=== PATIENT | male | born 1935 | race Caucasian/White ===

== ENCOUNTER → 2023-05-07 09:46 | Outpatient (REF) | payer OTHER, SELFPAY ==
[2023-05-07 10:38] LABS: % Basophils 0.2 % (0-2); % Eosinophils 0.2 % (0-6); % Immature Granulocytes 0.5 % (0-0.5); % Lymphocytes 17.1 % (20.5-51.1); % Monocytes 19.5 % (1.7-9.3); % Neutrophils 62.5 % (42.2-75.2); Absolute Lymphocytes 1.1 10^3/uL (1.2-3.4); Absolute Monocytes 1.2 10^3/uL (0.1-0.6); Absolute Neutrophils 3.9 10^3/uL (1.4-6.5); Hematocrit 38.8 % (39.0-52.0); Hemoglobin 13.8 g/dL (13.0-18.0); Mean Corp Hgb Conc. 35.6 g/dL (33.0-37.0); Mean Corpuscular Hgb 31.5 pg (27.0-31.0); Mean Corpuscular Volume 88.6 fL (80.0-94.0); Mean Platelet Volume 10.7 fL (7.4-10.4); Nucleated Red Blood Cells % 0 % (-); Platelet Count 222 10^3/uL (130-400); Red Blood Cell Count 4.38 10^6/uL (4.70-6.10); Red Cell Dist. Width 14.2 % (11.5-14.5); White Blood Cell Count 6.2 10^3/uL (4.8-10.8)
[2023-05-07 11:45] LABS: PSA, Total - Diagnostic 0.84 ng/ml (0.0-4.0)
[2023-05-07 12:24] LABS: ALT (SGPT) 25 U/L (0-50); AST (SGOT) 32 U/L (17-59); Albumin 4.4 g/dl (3.5-5.0); Alkaline Phosphatase 46 U/L (38-126); Blood Urea Nitrogen 21 mg/dl (9-20); Calcium 9.7 mg/dl (8.4-10.2); Carbon Dioxide 23 mmol/L (22-30); Chloride 102 mmol/L (98-107); Glucose 116 mg/dl (70-99); Potassium 4.5 mmol/L (3.5-5.1); Sodium 135 mmol/L (135-145); Total Bilirubin 0.8 mg/dl (0.2-1.3); Total Protein 7.2 g/dl (6.3-8.2); eGFR > 60.00
== END ==
LOC: RCS 09:46
PROVIDERS: ATTENDING PHYSICIAN Internal Medicine Medical Oncology
DX: C61 Malignant neoplasm of prostate (principal); C79.51 Secondary malignant neoplasm of bone
CPT/HCPCS: 36415; 80053; 84153; 84403; 85025; 93005

== ENCOUNTER → 2023-06-05 10:09 | Outpatient (REF) | payer OTHER, SELFPAY | LOC: RAD 10:09 | PROVIDERS: ATTENDING PHYSICIAN Internal Medicine Medical Oncology; FAMILY PHYSICIAN Family Medicine; REFERRING PHYSICIAN Urology | DX: C61 Malignant neoplasm of prostate (principal) | CPT/HCPCS: 71260; 74177; 78306; A9503; Q9967 ==

== ENCOUNTER → 2023-08-06 14:59 | Outpatient (REF) | payer OTHER, SELFPAY ==
[2023-08-06 15:43] LABS: % Basophils 0.3 % (0-2); % Immature Granulocytes 0.5 % (0-0.5); % Monocytes 26.9 % (1.7-9.3); % Neutrophils 60.3 % (42.2-75.2); Absolute Lymphocytes 0.7 10^3/uL (1.2-3.4); Absolute Monocytes 1.7 10^3/uL (0.1-0.6); Absolute Neutrophils 3.7 10^3/uL (1.4-6.5); Hematocrit 38.8 % (39.0-52.0); Hemoglobin 13.3 g/dL (13.0-18.0); Mean Corp Hgb Conc. 34.3 g/dL (33.0-37.0); Mean Corpuscular Hgb 29.6 pg (27.0-31.0); Mean Corpuscular Volume 86.2 fL (80.0-94.0); Mean Platelet Volume 10.7 fL (7.4-10.4); Nucleated Red Blood Cells % 0 % (-); Platelet Count 201 10^3/uL (130-400); Red Cell Dist. Width 13.4 % (11.5-14.5); White Blood Cell Count 6.2 10^3/uL (4.8-10.8)
[2023-08-06 16:01] LABS: ALT (SGPT) 22 U/L (0-50); AST (SGOT) 32 U/L (17-59); Absolute Neutrophils -Man Diff 3.9 10^3/uL (1.4-6.5); Albumin 4.5 g/dl (3.5-5.0); Alkaline Phosphatase 39 U/L (38-126); Band Neutrophils 0 % (0-3); Blood Urea Nitrogen 21 mg/dl (9-20); Calcium 9.4 mg/dl (8.4-10.2); Carbon Dioxide 25 mmol/L (22-30); Chloride 98 mmol/L (98-107); Glucose 106 mg/dl (70-99); Lymphocytes 15 % (20-51); Monocytes 22 % (2-9); Pathologist Reviewed No; Platelets Checked Yes; Potassium 4.3 mmol/L (3.5-5.1); Segmented Neutrophils 63 % (42-75); Sodium 134 mmol/L (135-145); Total Bilirubin 0.7 mg/dl (0.2-1.3); Total Protein 7.2 g/dl (6.3-8.2); eGFR > 60.00
[2023-08-06 16:02] LABS: Normal RBC Morphology Yes; Total Cells Counted 100
[2023-08-06 16:26] LABS: PSA, Total - Diagnostic 1.29 ng/ml (0.0-4.0)
== END ==
LOC: REG 14:59
PROVIDERS: ATTENDING PHYSICIAN Internal Medicine Medical Oncology; FAMILY PHYSICIAN Family Medicine
DX: C61 Malignant neoplasm of prostate (principal)
CPT/HCPCS: 36415; 80053; 84153; 85025

== ENCOUNTER → 2023-08-25 07:54 | Outpatient (REF) | payer OTHER, SELFPAY | LOC: RAD 07:54 | PROVIDERS: ATTENDING PHYSICIAN Internal Medicine Medical Oncology; FAMILY PHYSICIAN Family Medicine | DX: C61 Malignant neoplasm of prostate (principal) | CPT/HCPCS: 71260; 74177; 78306; A9503; Q9967 ==

== ENCOUNTER → 2023-10-27 10:35 | Outpatient (REF) | payer OTHER, SELFPAY ==
[2023-10-27 11:28] LABS: % Basophils 0.3 % (0-2); % Immature Granulocytes 0.8 % (0-0.5); % Lymphocytes 15.1 % (20.5-51.1); % Monocytes 12.6 % (1.7-9.3); % Neutrophils 71.2 % (42.2-75.2); Absolute Immature Granulocytes 0.1 10^3/uL (0-0.05); Absolute Lymphocytes 1.1 10^3/uL (1.2-3.4); Absolute Monocytes 0.9 10^3/uL (0.1-0.6); Absolute Neutrophils 5.2 10^3/uL (1.4-6.5); Hematocrit 37.5 % (39.0-52.0); Hemoglobin 13.1 g/dL (13.0-18.0); Mean Corp Hgb Conc. 34.9 g/dL (33.0-37.0); Mean Corpuscular Hgb 30.5 pg (27.0-31.0); Mean Corpuscular Volume 87.4 fL (80.0-94.0); Mean Platelet Volume 10.8 fL (7.4-10.4); Nucleated Red Blood Cells % 0 % (-); Platelet Count 200 10^3/uL (130-400); Red Blood Cell Count 4.29 10^6/uL (4.70-6.10); Red Cell Dist. Width 13.8 % (11.5-14.5); White Blood Cell Count 7.3 10^3/uL (4.8-10.8)
[2023-10-27 11:54] LABS: ALT (SGPT) 21 U/L (0-50); AST (SGOT) 31 U/L (17-59); Albumin 4.6 g/dl (3.5-5.0); Alkaline Phosphatase 50 U/L (38-126); Blood Urea Nitrogen 22 mg/dl (9-20); Calcium 9.5 mg/dl (8.4-10.2); Carbon Dioxide 25 mmol/L (22-30); Chloride 100 mmol/L (98-107); Glucose 133 mg/dl (70-99); Potassium 4.6 mmol/L (3.5-5.1); Sodium 137 mmol/L (135-145); Total Bilirubin 0.9 mg/dl (0.2-1.3); Total Protein 7.1 g/dl (6.3-8.2); eGFR > 60.00
[2023-10-27 12:21] LABS: PSA, Total - Diagnostic 1.78 ng/ml (0.0-4.0)
== END ==
LOC: REG 10:35
PROVIDERS: ATTENDING PHYSICIAN Internal Medicine Medical Oncology; FAMILY PHYSICIAN Family Medicine
DX: C79.51 Secondary malignant neoplasm of bone (principal); C61 Malignant neoplasm of prostate
CPT/HCPCS: 36415; 80053; 84153; 85025; 93005

== ENCOUNTER → 2023-12-31 10:40 | Outpatient (REF) | payer OTHER, SELFPAY ==
[2023-12-31 11:32] LABS: % Basophils 0.6 % (0-2); % Eosinophils 0.1 % (0-6); % Lymphocytes 24.5 % (20.5-51.1); % Monocytes 18.9 % (1.7-9.3); % Neutrophils 54.9 % (42.2-75.2); Absolute Immature Granulocytes 0.1 10^3/uL (0-0.05); Absolute Lymphocytes 1.8 10^3/uL (1.2-3.4); Absolute Monocytes 1.4 10^3/uL (0.1-0.6); Hemoglobin 13.7 g/dL (13.0-18.0); Mean Corp Hgb Conc. 35.1 g/dL (33.0-37.0); Mean Corpuscular Hgb 29.1 pg (27.0-31.0); Mean Corpuscular Volume 82.8 fL (80.0-94.0); Mean Platelet Volume 10.3 fL (7.4-10.4); Nucleated Red Blood Cells % 0 % (-); Platelet Count 271 10^3/uL (130-400); Red Blood Cell Count 4.71 10^6/uL (4.70-6.10); Red Cell Dist. Width 13.6 % (11.5-14.5); White Blood Cell Count 7.2 10^3/uL (4.8-10.8)
[2023-12-31 11:56] LABS: ALT (SGPT) 23 U/L (0-50); AST (SGOT) 33 U/L (17-59); Albumin 4.7 g/dl (3.5-5.0); Alkaline Phosphatase 52 U/L (38-126); Blood Urea Nitrogen 25 mg/dl (9-20); Calcium 9.8 mg/dl (8.4-10.2); Carbon Dioxide 27 mmol/L (22-30); Chloride 94 mmol/L (98-107); Glucose 128 mg/dl (70-99); Potassium 4.6 mmol/L (3.5-5.1); Sodium 136 mmol/L (135-145); Total Bilirubin 0.9 mg/dl (0.2-1.3); Total Protein 7.7 g/dl (6.3-8.2); eGFR > 60.00
[2023-12-31 12:23] LABS: PSA, Total - Diagnostic 2.61 ng/ml (0.0-4.0)
== END ==
LOC: REG 10:40
PROVIDERS: ATTENDING PHYSICIAN Family Medicine; REFERRING PHYSICIAN Internal Medicine Medical Oncology
DX: R73.03 Prediabetes (principal); C61 Malignant neoplasm of prostate
CPT/HCPCS: 36415; 80053; 83036; 84153; 85025; 93005

== ENCOUNTER 2024-01-03 12:14 | Emergency (ER) | payer OTHER, SELFPAY ==
[2024-01-03 12:16] VITALS: BP 114/88
[2024-01-03 12:48] VITALS: BMI 29.5
--- NOTE | 2024-01-03 12:52 | ED.GENMED ---
History of Present Illness
General
Chief Complaint: Skin Problem
Source: patient
Exam Limitations: none
Time Seen by Provider: 01/03/24 12:29
Nursing documentation reviewed up to this point in time: agreed with
History of Present Illness
History of Present Illness:
Patient is an 88-year-old male with history of metastatic bone cancer currently on Xtandi orally presents to the ER complaining of redness and red streaking to right wrist which he noticed this morning at 9:30 AM. He reports area feels sore. He
denies any injury or insect bite that he recalls.
He denies any fever chills. He is right hand dominant
Past History
Past History
ED Past Medical History: Cancer (Metastatic prostate CA), HTN and Valvular disease
ED Past Surgical History: Urological and Other
Social History
Tobacco: Non-smoker
Alcohol: None
Drug: None
Personal:
Living: with family
Employment: Retired
Family History
Family History: Diabetes and CAD
Review of Systems
Review of Systems
Allergies reviewed?: Yes
All Other Systems: ROS reviewed and negative except as documented in HPI and ROS
Constitutional: Reports no symptoms; Denies fever, fatigue or chills
Musculoskeletal: Reports other (redness to right wrist streaking up right forearm )
Skin: Reports other (see above )
Neurological: Reports no symptoms
Psychiatric: Reports no symptoms
Phy Exam
General Physical Exam
General Presentation: no apparent distress
General age: appears stated age
General Skin: warm and dry
General Habitus: normal
General Mental: alert
General Hydration: appears well hydrated
Neurological Exam
Neurological Exam: alert and oriented x3
Musculoskeletal Exam
Musculoskeletal Exam: other (Patient was strong pulses to the right upper extremity volar wrist with erythema mild swelling and slight lymphangitis extending up forearm however good flexion extension of wrist )
Skin Exam
Skin Exam: normal color and warm/dry
Psychiatric Exam
Psychiatric Exam: normal mood/affect
Course
Orders/Labs/Results
Orders:
Orders
01/03/24 13:03
Basic Metabolic Panel Urgent
01/03/24 13:52
Wrist, Right 3 Views [CR Wrist - Right Min 3 Views] Urgent
Comment:
Reason For Exam: swelling/redness
01/03/24 14:37
Complete Blood Count/With Diff Urgent
01/03/24 15:57
Cephalexin Monohydrate [Keflex] 500 mg PO NOW STA
01/03/24 15:58
Cephalexin Monohydrate [Keflex] 500 mg PO NOW STA
Abnormal Lab Results
01/03/24 01/03/24
13:03 14:37
RBC 4.19 L 10^6/uL
(4.70-6.10)
Hgb 12.3 L g/dL
(13.0-18.0)
Hct 34.4 L %
(39.0-52.0)
Abs Immat Gran (auto) 0.1 H 10^3/uL
(0-0.05)
Absolute Monos (auto) 1.6 H 10^3/uL
(0.1-0.6)
Immature Gran % 0.9 H %
(0-0.5)
Monocytes % 19.6 H %
(1.7-9.3)
Chloride 97 L mmol/L
(98-107)
BUN 28 H mg/dl
(9-20)
01/03/24 14:37
01/03/24 13:03
Vital Signs
Initial and Last Documented VS:
Initial Vital Signs
Temp Pulse Resp BP Pulse Ox
98.2 F 76 18 114/88 94
01/03/24 12:16 01/03/24 12:16 01/03/24 12:16 01/03/24 12:16 01/03/24 12:16
Last Documented Vital Signs
Temp Pulse Resp BP Pulse Ox
97.4 F 73 18 136/74 98
01/03/24 15:00 01/03/24 15:00 01/03/24 15:00 01/03/24 15:00 01/03/24 15:00
[employer] consulted with Physician
[employer] consulted with physician?: Yes
Name of Physician Consulted: DR Salinas
MDM/Problems Addressed
Differential Diagnosis Includes:
Not limited to cellulitis
MDM/Problems Addressed:
Patient with mild erythema slightly lymphangitis to wrist extending to forearm patient noticed just this morning. He denies any injury/insect bite. He feels well and denies feeling feverish achy chills ill. He is afebrile with a normal white
count BUN mildly elevated creatinine 1 potassium hemolyzed however with normal creatinine I did not order additional potassium. Case to ED physician will treat for cellulitis and patient was given 1 dose here in the ER will give prescription for
discharge. I did review however very prompt follow-up and close evaluation by family doctor in the next 1 to 2 days and if at all any symptoms worsen including worsening redness worsening red streaking fever chills he is to return immediately.
This was reviewed with patient and family who all verbalized understanding.
Chronic conditions affecting care:
on oral chemo
*Radiology
Radiology exam reviewed: radiology read reviewed
*Pulse Oximetry
Patient hypoxic: no
*Critical Care Note
Total Time (30-74mins, 75-104mins- exclusive of procedures): Not Applicable
ED Attending Note
-
Portions of this chart may have been created with voice recognition software.� Occasional wrong word or��sound alike� substitutions may have occurred due to the inherent limitations of voice recognition software.
Discharge Plan
Departure
Patient Disposition: Home (Routine Discharge)
Date of Disposition: 01/03/24
Time of Disposition: 16:02
Patient with high blood pressure during this ER visit?: Yes
Condition: Fair
Covid-19: Not Applicable
Discharge Problem:
Cellulitis
Instructions: Cellulitis (Skin Infection), Adult (DC)
Prescriptions:
New
cephalexin 500 mg capsule
500 mg PO Q6H Qty: 28 0RF
No Action
Centrum Silver 1 EACH tablet
1 ea PO QPM
prednisone 5 mg Tablet
5 mg PO DAILY
abiraterone 250 mg Tablet
1,000 mg PO DAILY
Rx Instructions:
must be taken on empty stomach, at least 1 hr before or 2 hrs after a meal/food
gabapentin 600 mg tablet
600 mg PO TID
polyethylene glycol 3350 [Miralax] 17 gram Powder In Packet
17 g PO DAILY
calcium carbonate [Calcium 600] 600 mg calcium (1,500 mg) Tablet
600 mg PO BID
buprenorphine 10 mcg/hour patch weekly
15 mcg transdermal SA
Patient Comments:
11/07/2022: last filled 10/17/22, 4 patches for 28 days from [facility]
lidocaine [Lidocaine Pain Relief] 4 % Adhesive Patch,Medicated
1 patch TOPICAL DAILY PRN (Reason: lower back pain)
Stool Softener 50 mg Capsule
100 mg PO DAILY
pantoprazole [Protonix] 40 mg Tablet,Delayed Release (Dr/Ec)
40 mg PO DAILY
furosemide 20 mg tablet
20 mg PO PRN PRN (Reason: swelling)
cephalexin 500 mg Capsule
500 mg PO BID Qty: 14 0RF
lisinopril 10 mg Tablet
10 mg PO DAILY Qty: 30 0RF
acetaminophen 325 mg Tablet
650 mg PO Q4HPRN PRN (Reason: Mild Pain / Temp > 101) Qty: 0 0RF
loperamide 2 mg Capsule
2 mg PO Q4HPRN PRN (Reason: diarrhea) Qty: 0 0RF
Referrals:
Jamila Ruiz MD [Family Provider] -
Activity Restrictions/Additional Instructions:
As discussed you were given 1 dose of antibiotics here in the ER .
A prescription for Keflex was sent to pharmacy take every 6 hours as directed. Follow-up with your family doctor tomorrow or the following day for close check. Return however to the ER for any worsening of symptoms or increased redness red
streaking pain fever or chills
Interventions
Interventions:
*Risk Screen - Suicide Last Done: 01/03/24 15:00
*General Assessment Last Done: 01/03/24 12:49
*Neglect/Abuse Screening Last Done: 01/03/24 12:49
ED- Fall Risk Assessment Last Done: 01/03/24 14:42
*ED COVID-19 Vaccine History Last Done: 01/03/24 12:49
*Nursing Disposition Last Done: 01/03/24 16:35
ED-Skin Assessment Last Done: 01/03/24 14:42
Discharge Date and Time
Discharge Date/Time: 01/03/24 16:45
Print Language: [place] CITIZEN
[2024-01-03 13:33] LABS: Blood Urea Nitrogen 28 mg/dl (9-20); Calcium 9.7 mg/dl (8.4-10.2); Carbon Dioxide 29 mmol/L (22-30); Chloride 97 mmol/L (98-107); Estimated Creatinine Clearance 61 ml/min; Glucose 99 mg/dl (70-99); Sodium 137 mmol/L (135-145); eGFR > 60.00
[2024-01-03 14:54] LABS: % Basophils 0.4 % (0-2); % Eosinophils 0.1 % (0-6); % Immature Granulocytes 0.9 % (0-0.5); % Lymphocytes 21.6 % (20.5-51.1); % Monocytes 19.6 % (1.7-9.3); % Neutrophils 57.4 % (42.2-75.2); Absolute Immature Granulocytes 0.1 10^3/uL (0-0.05); Absolute Lymphocytes 1.7 10^3/uL (1.2-3.4); Absolute Monocytes 1.6 10^3/uL (0.1-0.6); Absolute Neutrophils 4.6 10^3/uL (1.4-6.5); Hematocrit 34.4 % (39.0-52.0); Hemoglobin 12.3 g/dL (13.0-18.0); Mean Corp Hgb Conc. 35.8 g/dL (33.0-37.0); Mean Corpuscular Hgb 29.4 pg (27.0-31.0); Mean Corpuscular Volume 82.1 fL (80.0-94.0); Mean Platelet Volume 10.4 fL (7.4-10.4); Nucleated Red Blood Cells % 0 % (-); Platelet Count 219 10^3/uL (130-400); Red Blood Cell Count 4.19 10^6/uL (4.70-6.10); Red Cell Dist. Width 13.6 % (11.5-14.5)
[2024-01-03 15:00] VITALS: BP 136/74
[2024-01-03] MEDS: KEFLEX 500 MG PO ×2 (16:21)
== END 2024-01-03 16:45 | disposition home or self-care (01) ==
LOC: EMR 12:14
PROVIDERS: Nurse Practitioner; EMERGENCY PHYSICIAN Emergency Medicine; FAMILY PHYSICIAN Family Medicine
DX: L03.113 Cellulitis of right upper limb (principal); C61 Malignant neoplasm of prostate; C79.9 Secondary malignant neoplasm of unspecified site; I10 Essential (primary) hypertension; I38 Endocarditis, valve unspecified; G62.9 Polyneuropathy, unspecified; I70.90 Unspecified atherosclerosis; R01.1 Cardiac murmur, unspecified; N40.0 Benign prostatic hyperplasia without lower urinary tract symptoms; M19.90 Unspecified osteoarthritis, unspecified site; Z87.01 Personal history of pneumonia (recurrent); Z85.828 Personal history of other malignant neoplasm of skin; Z85.830 Personal history of malignant neoplasm of bone; Z87.442 Personal history of urinary calculi
CPT/HCPCS: 99283; 73110; 80048; 85025

== ENCOUNTER 2024-01-22 10:48 | Emergency (ER) | payer OTHER, SELFPAY ==
[2024-01-22 11:26] VITALS: BP 117/72
--- NOTE | 2024-01-22 12:58 | ED.GENMED ---
History of Present Illness
<DANYEL Singh - Last Filed: 01/25/24 11:36>
General
Chief Complaint: Male Genito-Urinary Symptoms
Source: patient
Exam Limitations: none
Time Seen by Provider: 01/22/24 12:57
Nursing documentation reviewed up to this point in time: agreed with
History of Present Illness
History of Present Illness:
Patient is an 88-year-old male with history of metastatic bone cancer with urostomy presents to the ER for evaluation. He reports last night until this morning he had decreased urine output and had some suprapubic discomfort and back pain. Since
he has been here he has been draining urine but still has some mild vague lower back discomfort. He denies any associated nausea vomiting fever chills. He has some chronic sediment in his urine this is not new.
In addition patient reports were not related to this he has had intermittent headaches and feels fullness in his ears when he wakes up. He does not have a great appetite.
Past History
<DANYEL Singh - Last Filed: 01/25/24 11:36>
Past History
ED Past Medical History: Cancer (Metastatic prostate CA), HTN and Valvular disease
ED Past Surgical History: Urological and Other
Social History
Tobacco: Non-smoker
Alcohol: None
Drug: None
Personal:
Living: with family
Employment: Retired
Family History
Family History: Diabetes and CAD
Review of Systems
<DANYEL Singh - Last Filed: 01/25/24 11:36>
Review of Systems
All Other Systems: ROS reviewed and negative except as documented in HPI and ROS
Constitutional: Reports no symptoms; Denies fever, fatigue or chills
Respiratory: Reports no symptoms
Cardiac: Reports no symptoms
ABD/GI: Reports abdominal pain (mild lower abdomen discomfort ); Denies nausea or vomiting
: Reports other (decreased urine from urostomy )
Musculoskeletal: Reports back pain (low back pain )
Skin: Reports no symptoms
Neurological: Reports no symptoms
Psychiatric: Reports no symptoms
Phy Exam
<DANYEL Singh - Last Filed: 01/25/24 11:36>
General Physical Exam
General Presentation: no apparent distress
General age: appears stated age
General Skin: warm and dry
General Habitus: normal
General Mental: alert
General Hydration: appears well hydrated
Gastrointestinal Exam
Gastrointestinal Exam: soft and other (urostomy draining urine + small amt of sediment )
Neurological Exam
Neurological Exam: alert and oriented x3
Musculoskeletal Exam
Musculoskeletal Exam: full ROM
Skin Exam
Skin Exam: normal color and warm/dry
Psychiatric Exam
Psychiatric Exam: normal mood/affect
Course
<DANYEL Singh - Last Filed: 01/25/24 11:36>
Orders/Labs/Results
Orders:
Orders
01/22/24 12:58
IV Insert/Care/Rem.- Treatment PRN
01/22/24 13:15
Complete Blood Count/With Diff Urgent
Comprehensive Metabolic Panel Urgent
01/22/24 13:55
CT Abd/pel Without Iv Or Oral Urgent
Comment:
Reason For Exam: back pain dec urine from urostomy
01/22/24 13:58
Urinalysis Reflex To Culture Urgent
Date Specimen was Collected: 01/22/24
Time Specimen was Collected: 13:01
Urine Microscopic Reflex Cult Urgent
Urine Culture Urgent
MERRILL Source: U
Specimen Description:
Date Specimen was Collected: 01/22/24
Time Specimen was Collected: 13:01
01/22/24 14:58
0.9% Sodium Chloride 1000 ml [Nss] 1,000 ml IV BOLUS
01/22/24 16:01
CT Head W/o Iv Contrast Urgent
Comment:
Reason For Exam: headaches
Abnormal Lab Results
01/22/24 01/22/24
13:15 13:58
RBC 4.23 L 10^6/uL
(4.70-6.10)
Hgb 12.9 L g/dL
(13.0-18.0)
Hct 36.0 L %
(39.0-52.0)
Abs Immat Gran (auto) 0.1 H 10^3/uL
(0-0.05)
Absolute Monos (auto) 1.1 H 10^3/uL
(0.1-0.6)
Immature Gran % 0.6 H %
(0-0.5)
Lymphocytes % 14.8 L %
(20.5-51.1)
Monocytes % 14.0 H %
(1.7-9.3)
Sodium 132 L mmol/L
(135-145)
Chloride 92 L mmol/L
(98-107)
BUN 42 H mg/dl
(9-20)
Creatinine 1.8 H mg/dL
(0.7-1.3)
Glucose 122 H mg/dl
(70-99)
Urine Nitrite (Reflex) Positive A
(Negative)
Urine Bacteria (Reflex) Many A
(Negative)
01/22/24 13:15
01/22/24 13:15
Vital Signs
Initial and Last Documented VS:
Initial Vital Signs
Temp Pulse Resp BP Pulse Ox
97.7 F 91 18 117/72 98
01/22/24 11:26 01/22/24 11:26 01/22/24 11:26 01/22/24 11:26 01/22/24 11:26
Last Documented Vital Signs
Temp Pulse Resp BP Pulse Ox
97.7 F 71 15 111/73 97
01/22/24 11:26 01/22/24 18:15 01/22/24 18:15 01/22/24 18:00 01/22/24 18:15
Health Care Sanitary Technician consulted with Physician
Health Care Sanitary Technician consulted with physician?: Yes
Name of Physician Consulted: DR Thomas
<Cm Carlin PA-C - Last Filed: 01/22/24 19:35>
Orders/Labs/Results
Orders:
Orders
01/22/24 12:58
IV Insert/Care/Rem.- Treatment PRN
01/22/24 13:15
Complete Blood Count/With Diff Urgent
Comprehensive Metabolic Panel Urgent
01/22/24 13:55
CT Abd/pel Without Iv Or Oral Urgent
Comment:
Reason For Exam: back pain dec urine from urostomy
01/22/24 13:58
Urinalysis Reflex To Culture Urgent
Date Specimen was Collected: 01/22/24
Time Specimen was Collected: 13:01
Urine Microscopic Reflex Cult Urgent
Urine Culture Urgent
[facility]RI[facility] Source: U
Specimen Description:
Date Specimen was Collected: 01/22/24
Time Specimen was Collected: 13:01
01/22/24 14:58
0.9% Sodium Chloride 1000 ml [Nss] 1,000 ml IV BOLUS
01/22/24 16:01
CT Head W/o Iv Contrast Urgent
Comment:
Reason For Exam: headaches
Abnormal Lab Results
01/22/24 01/22/24
13:15 13:58
RBC 4.23 L 10^6/uL
(4.70-6.10)
Hgb 12.9 L g/dL
(13.0-18.0)
Hct 36.0 L %
(39.0-52.0)
Abs Immat Gran (auto) 0.1 H 10^3/uL
(0-0.05)
Absolute Monos (auto) 1.1 H 10^3/uL
(0.1-0.6)
Immature Gran % 0.6 H %
(0-0.5)
Lymphocytes % 14.8 L %
(20.5-51.1)
Monocytes % 14.0 H %
(1.7-9.3)
Sodium 132 L mmol/L
(135-145)
Chloride 92 L mmol/L
(98-107)
BUN 42 H mg/dl
(9-20)
Creatinine 1.8 H mg/dL
(0.7-1.3)
Glucose 122 H mg/dl
(70-99)
Urine Nitrite (Reflex) Positive A
(Negative)
Urine Bacteria (Reflex) Many A
(Negative)
01/22/24 13:15
01/22/24 13:15
Vital Signs
Initial and Last Documented VS:
Initial Vital Signs
Temp Pulse Resp BP Pulse Ox
97.7 F 91 18 117/72 98
01/22/24 11:26 01/22/24 11:26 01/22/24 11:26 01/22/24 11:26 01/22/24 11:26
Last Documented Vital Signs
Temp Pulse Resp BP Pulse Ox
97.7 F 71 15 111/73 97
01/22/24 11:26 01/22/24 18:15 01/22/24 18:15 01/22/24 18:00 01/22/24 18:15
<DANYEL Singh - Last Filed: 01/25/24 11:36>
MDM/Problems Addressed
MDM/Problems Addressed:
88 yr old male /w urostomy presents decreased outpt from urine bag since last night with mild lower back pain and lower abdominal pain. Patient however has since been urinating. He denies any fever or chills. Patient is afebrile with a normal
white count stable hemoglobin however patient's BUN and creatinine are elevated compared to last visit 42/1.8 compared to 28/0.8. will hydrate and order ct scan. d/c w/ DR Thomas.
In addition patient did complain of some vague complaints of intermittent headaches and ear pain over the past several days reports slight decreased appetite. will check CT however patient is in no acute distress no complaints of headache now
normal neurologic exam non toxic.
CAT scan shows moderate chronic bilateral renal disease new small amount of pelvic ascites no CT evidence for hydroureteronephrosis or obstructing renal calculus previous prostatectomy. No other acute findings.
Pt was hydrated here and in no distress. will plan to d/c once ct head is neg
Chronic conditions affecting care:
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
<Cm Carlin PA-C - Last Filed: 01/22/24 19:35>
*Critical Care Note
Total Time (30-74mins, 75-104mins- exclusive of procedures): Not Applicable
ED Attending Note
<DANYEL Singh - Last Filed: 01/25/24 11:36>
-
Portions of this chart may have been created with voice recognition software.� Occasional wrong word or��sound alike� substitutions may have occurred due to the inherent limitations of voice recognition software.
Discharge Plan
Departure
Patient Disposition: Home (Routine Discharge)
Date of Disposition: 01/22/24
Time of Disposition: 17:57
Patient with high blood pressure during this ER visit?: Yes
Condition: Fair
Covid-19: Not Applicable
Discharge Problem:
Acute dehydration
Instructions: Dehydration, Adult ED, BLOOD PRESSURE
Prescriptions:
No Action
Centrum Silver 1 EACH tablet
1 ea PO QPM
prednisone 5 mg Tablet
5 mg PO DAILY
abiraterone 250 mg Tablet
1,000 mg PO DAILY
Rx Instructions:
must be taken on empty stomach, at least 1 hr before or 2 hrs after a meal/food
gabapentin 600 mg tablet
600 mg PO TID
polyethylene glycol 3350 [Miralax] 17 gram Powder In Packet
17 g PO DAILY
calcium carbonate [Calcium 600] 600 mg calcium (1,500 mg) Tablet
600 mg PO BID
buprenorphine 10 mcg/hour patch weekly
15 mcg transdermal SA
Patient Comments:
11/07/2022: last filled 10/17/22, 4 patches for 28 days from [facility]
lidocaine [Lidocaine Pain Relief] 4 % Adhesive Patch,Medicated
1 patch TOPICAL DAILY PRN (Reason: lower back pain)
Stool Softener 50 mg Capsule
100 mg PO DAILY
pantoprazole [Protonix] 40 mg Tablet,Delayed Release (Dr/Ec)
40 mg PO DAILY
furosemide 20 mg tablet
20 mg PO PRN PRN (Reason: swelling)
cephalexin 500 mg Capsule
500 mg PO BID Qty: 14 0RF
lisinopril 10 mg Tablet
10 mg PO DAILY Qty: 30 0RF
acetaminophen 325 mg Tablet
650 mg PO Q4HPRN PRN (Reason: Mild Pain / Temp > 101) Qty: 0 0RF
loperamide 2 mg Capsule
2 mg PO Q4HPRN PRN (Reason: diarrhea) Qty: 0 0RF
cephalexin 500 mg capsule
500 mg PO Q6H Qty: 28 0RF
Referrals:
Jamila Ruiz MD [Family Provider] -
Activity Restrictions/Additional Instructions:
As discussed your renal function was elevated here in the ER and you were hydrated. Follow-up with family doctor and oncologist in the next several days for reevaluation of labs continue to stay well-hydrated.
Return if any worsening of symptoms, if decreased urine output in urostomy or pain or any further concerns.
Interventions
Interventions:
*Risk Screen - Suicide Last Done: 01/22/24 11:26
*General Assessment Last Done: 01/22/24 11:26
*Neglect/Abuse Screening Last Done: 01/22/24 11:26
ED- Fall Risk Assessment Last Done: 01/22/24 12:57
*Nursing Disposition Last Done: 01/22/24 18:48
ED-Male Genitourinary Assessment Last Done: 01/22/24 12:57
Discharge Date and Time
Discharge Date/Time: 01/22/24 18:49
Print Language: [place]
[2024-01-22 13:28] LABS: % Basophils 0.2 % (0-2); % Eosinophils 0.1 % (0-6); % Immature Granulocytes 0.6 % (0-0.5); % Lymphocytes 14.8 % (20.5-51.1); % Neutrophils 70.3 % (42.2-75.2); Absolute Immature Granulocytes 0.1 10^3/uL (0-0.05); Absolute Lymphocytes 1.2 10^3/uL (1.2-3.4); Absolute Monocytes 1.1 10^3/uL (0.1-0.6); Absolute Neutrophils 5.7 10^3/uL (1.4-6.5); Hemoglobin 12.9 g/dL (13.0-18.0); Mean Corp Hgb Conc. 35.8 g/dL (33.0-37.0); Mean Corpuscular Hgb 30.5 pg (27.0-31.0); Mean Corpuscular Volume 85.1 fL (80.0-94.0); Mean Platelet Volume 9.7 fL (7.4-10.4); Nucleated Red Blood Cells % 0 % (-); Platelet Count 250 10^3/uL (130-400); Red Blood Cell Count 4.23 10^6/uL (4.70-6.10); Red Cell Dist. Width 13.5 % (11.5-14.5); White Blood Cell Count 8.2 10^3/uL (4.8-10.8)
[2024-01-22 13:46] LABS: ALT (SGPT) 20 U/L (0-50); AST (SGOT) 29 U/L (17-59); Albumin 4.2 g/dl (3.5-5.0); Alkaline Phosphatase 47 U/L (38-126); Blood Urea Nitrogen 42 mg/dl (9-20); Calcium 9.5 mg/dl (8.4-10.2); Carbon Dioxide 29 mmol/L (22-30); Chloride 92 mmol/L (98-107); Glucose 122 mg/dl (70-99); Potassium 4.5 mmol/L (3.5-5.1); Sodium 132 mmol/L (135-145); Total Bilirubin 0.7 mg/dl (0.2-1.3); Total Protein 6.9 g/dl (6.3-8.2); eGFR 35.98
[2024-01-22 14:11] LABS: Urine Albumin Negative (Neg - Trace); Urine Bilirubin Negative (Negative); Urine Character Clear (Clear); Urine Color Yellow; Urine Glucose Negative (Negative); Urine Ketone Negative (Negative); Urine Leukocyte Negative (Negative); Urine Nitrite Positive (Negative); Urine Occult Blood Negative (Negative); Urine Urobilinogen Negative (Neg - 1+)
[2024-01-22 15:05] VITALS: BP 111/74
[2024-01-22 15:11] LABS: Urine Mucus Many
[2024-01-22 15:12] LABS: Urine Amorphous Seen; Urine Squamous Cell 0-2 /LPF (Few)
[2024-01-22 15:13] LABS: Urine Bacteria Many (Negative); Urine Red Blood Cell 0-2 /HPF (0-2)
[2024-01-22] MEDS: NSS 1000 IV (15:44)
[2024-01-22 15:46] VITALS: BMI 28.7
[2024-01-22 16:00] VITALS: BP 131/65
[2024-01-22 17:21] VITALS: BP 137/69
[2024-01-22 18:00] VITALS: BP 111/73
== END 2024-01-22 18:49 | disposition home or self-care (01) ==
LOC: EMR 10:48
PROVIDERS: Nurse Practitioner; EMERGENCY PHYSICIAN Emergency Medicine; FAMILY PHYSICIAN Family Medicine
DX: E86.0 Dehydration (principal); I10 Essential (primary) hypertension; I38 Endocarditis, valve unspecified; C61 Malignant neoplasm of prostate; C79.51 Secondary malignant neoplasm of bone; Z82.49 Family history of ischemic heart disease and other diseases of the circulatory system; Z83.3 Family history of diabetes mellitus; Z85.46 Personal history of malignant neoplasm of prostate; Z90.79 Acquired absence of other genital organ(s)
CPT/HCPCS: 99284; 96360; 70450; 74176; 80053; 81003; 81015; 85025; 87086

== ENCOUNTER → 2024-02-19 11:35 | Outpatient (REF) | payer OTHER, SELFPAY ==
[2024-02-19 12:55] LABS: % Basophils 0.1 % (0-2); % Immature Granulocytes 0.7 % (0-0.5); % Lymphocytes 20.6 % (20.5-51.1); % Monocytes 18.8 % (1.7-9.3); % Neutrophils 59.8 % (42.2-75.2); Absolute Immature Granulocytes 0.1 10^3/uL (0-0.05); Absolute Lymphocytes 1.4 10^3/uL (1.2-3.4); Absolute Monocytes 1.3 10^3/uL (0.1-0.6); Hematocrit 37.4 % (39.0-52.0); Mean Corp Hgb Conc. 34.8 g/dL (33.0-37.0); Mean Corpuscular Hgb 30.2 pg (27.0-31.0); Mean Corpuscular Volume 86.8 fL (80.0-94.0); Mean Platelet Volume 10.2 fL (7.4-10.4); Nucleated Red Blood Cells % 0 % (-); Platelet Count 238 10^3/uL (130-400); Red Blood Cell Count 4.31 10^6/uL (4.70-6.10); Red Cell Dist. Width 13.8 % (11.5-14.5); White Blood Cell Count 6.7 10^3/uL (4.8-10.8)
[2024-02-19 13:41] LABS: ALT (SGPT) 19 U/L (0-50); AST (SGOT) 28 U/L (17-59); Albumin 4.7 g/dl (3.5-5.0); Alkaline Phosphatase 39 U/L (38-126); Blood Urea Nitrogen 23 mg/dl (9-20); Carbon Dioxide 26 mmol/L (22-30); Chloride 95 mmol/L (98-107); Glucose 103 mg/dl (70-99); Potassium 4.4 mmol/L (3.5-5.1); Sodium 135 mmol/L (135-145); Total Bilirubin 0.5 mg/dl (0.2-1.3); Total Protein 7.6 g/dl (6.3-8.2); eGFR > 60.00
[2024-02-19 13:50] LABS: PSA, Total - Diagnostic 3.13 ng/ml (0.0-4.0)
== END ==
LOC: REG 11:35
PROVIDERS: ATTENDING PHYSICIAN Family Medicine; FAMILY PHYSICIAN Internal Medicine Medical Oncology
DX: C61 Malignant neoplasm of prostate (principal); E86.0 Dehydration
CPT/HCPCS: 36415; 80053; 84153; 85025

== ENCOUNTER → 2024-04-16 11:08 | Outpatient (REF) | payer OTHER, SELFPAY ==
[2024-04-16 11:53] LABS: % Basophils 0.1 % (0-2); % Eosinophils 0.1 % (0-6); % Immature Granulocytes 0.6 % (0-0.5); % Monocytes 16.3 % (1.7-9.3); % Neutrophils 61.9 % (42.2-75.2); Absolute Lymphocytes 1.4 10^3/uL (1.2-3.4); Absolute Monocytes 1.1 10^3/uL (0.1-0.6); Absolute Neutrophils 4.2 10^3/uL (1.4-6.5); Hematocrit 43.8 % (39.0-52.0); Hemoglobin 14.9 g/dL (13.0-18.0); Mean Corpuscular Hgb 29.8 pg (27.0-31.0); Mean Corpuscular Volume 87.6 fL (80.0-94.0); Mean Platelet Volume 10.1 fL (7.4-10.4); Nucleated Red Blood Cells % 0 % (-); Platelet Count 283 10^3/uL (130-400); Red Cell Dist. Width 13.1 % (11.5-14.5); White Blood Cell Count 6.8 10^3/uL (4.8-10.8)
[2024-04-16 12:24] LABS: ALT (SGPT) 22 U/L (0-50); AST (SGOT) 35 U/L (17-59); Albumin 5.1 g/dl (3.5-5.0); Alkaline Phosphatase 46 U/L (38-126); Blood Urea Nitrogen 24 mg/dl (9-20); Calcium 10.5 mg/dl (8.4-10.2); Carbon Dioxide 30 mmol/L (22-30); Chloride 92 mmol/L (98-107); Glucose 135 mg/dl (70-99); Potassium 4.6 mmol/L (3.5-5.1); Sodium 135 mmol/L (135-145); Total Bilirubin 0.8 mg/dl (0.2-1.3); Total Protein 8.4 g/dl (6.3-8.2); eGFR > 60.00
[2024-04-16 12:50] LABS: PSA, Total - Diagnostic 5.37 ng/ml (0.0-4.0)
== END ==
LOC: REG 11:08
PROVIDERS: ATTENDING PHYSICIAN Internal Medicine Medical Oncology; FAMILY PHYSICIAN Family Medicine
DX: C61 Malignant neoplasm of prostate (principal)
CPT/HCPCS: 36415; 80053; 84153; 85025

== ENCOUNTER 2024-04-29 19:42 | Inpatient (IN) | payer OTHER, SELFPAY ==
[2024-04-29] VITALS (20 sets, daily range): BP systolic 103–158; BP diastolic 56–94; BMI 29.9; BMI 28.8
[2024-04-29 13:15] LABS: % Basophils 0.4 % (0-2); % Eosinophils 0.2 % (0-6); % Immature Granulocytes 0.6 % (0-0.5); % Lymphocytes 9.4 % (20.5-51.1); % Monocytes 16.4 % (1.7-9.3); Absolute Lymphocytes 0.5 10^3/uL (1.2-3.4); Absolute Monocytes 0.8 10^3/uL (0.1-0.6); Absolute Neutrophils 3.6 10^3/uL (1.4-6.5); Hematocrit 36.5 % (39.0-52.0); Hemoglobin 12.8 g/dL (13.0-18.0); Mean Corp Hgb Conc. 35.1 g/dL (33.0-37.0); Mean Corpuscular Volume 85.7 fL (80.0-94.0); Mean Platelet Volume 9.9 fL (7.4-10.4); Nucleated Red Blood Cells % 0 % (-); Platelet Count 201 10^3/uL (130-400); Red Blood Cell Count 4.26 10^6/uL (4.70-6.10); Red Cell Dist. Width 12.9 % (11.5-14.5)
[2024-04-29 13:32] LABS: ALT (SGPT) 17 U/L (0-50); AST (SGOT) 27 U/L (17-59); Albumin 4.3 g/dl (3.5-5.0); Alkaline Phosphatase 50 U/L (38-126); Blood Urea Nitrogen 24 mg/dl (9-20); Calcium 8.4 mg/dl (8.4-10.2); Carbon Dioxide 28 mmol/L (22-30); Chloride 93 mmol/L (98-107); Glucose 127 mg/dl (70-99); Potassium 3.9 mmol/L (3.5-5.1); Sodium 131 mmol/L (135-145); Total Bilirubin 0.6 mg/dl (0.2-1.3); Total Protein 7.1 g/dl (6.3-8.2); eGFR > 60.00
[2024-04-29] MEDS: ZOFRAN 4 MG IV ×2 (15:00→22:42)
[2024-04-29] MEDS: NSS 1000 IV ×2 (15:01→19:56)
[2024-04-29] MEDS: DILAUDID 1 MG IV ×3 (15:01→17:36)
[2024-04-29 15:23] LABS: Urine Albumin 3+ (Neg - Trace); Urine Bilirubin Negative (Negative); Urine Character Clear (Clear); Urine Color Yellow; Urine Glucose Negative (Negative); Urine Ketone Negative (Negative); Urine Leukocyte 2+ (Negative); Urine Nitrite Negative (Negative); Urine Occult Blood 3+ (Negative); Urine Urobilinogen Negative (Neg - 1+)
[2024-04-29 15:28] LABS: Urine Squamous Cell 0-2 /LPF (Few)
[2024-04-29 15:29] LABS: Urine Bacteria Moderate (Negative); Urine Red Blood Cell 70-80 /HPF (0-2)
[2024-04-29 15:30] LABS: Urine White Cell 80-90 /HPF (0-5)
[2024-04-29 15:43] LABS: Lactic Acid 1.8 mmol/L (0.7-2.0)
--- NOTE | 2024-04-29 16:30 | ED.GENMED ---
History of Present Illness
General
Chief Complaint: Abdominal Pain
Time Seen by Provider: 04/29/24 14:42
History of Present Illness
History of Present Illness:
88-year-old male with history of metastatic bone cancer currently undergoing radiation, prostate cancer with urostomy, chronic lower back issues, diabetes, hypertension presenting to the emergency department for abdominal pain. Patient reports
symptoms started this morning around 11 AM. Pain is diffuse. Has been constipated for the past several days, however does note that he is also been having runny diarrhea. Denies any fever. Denies chest pain or difficulty breathing. Does note
element of chronic pain, is on hydromorphone, however pain is worse today. Feels decreased output out of his urostomy. Last dose of radiation was last week. Pain radiates to his back. Denies additional medical complaints
Past History
Past History
ED Past Medical History: Cancer (Metastatic prostate CA), HTN and Valvular disease
ED Past Surgical History: Urological and Other
Social History
Tobacco: Non-smoker
Alcohol: None
Drug: None
Personal:
Living: with family
Employment: Retired
Family History
Family History: Diabetes and CAD
Phy Exam
Physical Exam
Physical Exam:
General: Well-appearing, no clinical signs of dehydration, mild distress secondary to pain
HEENT: protecting airway
Neck: appears supple
CV: Normal heart rate, regular rhythm
Resp: No accessory muscle use, no increased work of breathing, lungs clear to auscultation bilaterally
Abd: Soft and non-distended, generalized nonfocal tenderness to palpation with voluntary guarding, no rebound. Draining urostomy, yellow urine
Extremities: No deformities, no swelling
Neuro: alert, no focal neurologic deficit
: deferred
Rectal: deferred
Psych: Normal affect
Skin: Intact
Course
Orders/Labs/Results
Orders:
Orders
04/29/24 Breakfast
Clear Liquid
At Your Request: Full Participation
04/29/24 13:01
Complete Blood Count/With Diff Urgent
Comprehensive Metabolic Panel Urgent
04/29/24 14:52
0.9% Sodium Chloride 1000 ml [Nss] 1,000 ml IV BOLUS
HYDROmorphone [Dilaudid] 1 mg IV NOW STA
Ondansetron Injectable [Zofran] 4 mg IV NOW STA
04/29/24 14:53
CT Abd/pel Without Iv Or Oral Urgent
Comment:
Reason For Exam: generalized pain, Nausea, constipation, urostomy
04/29/24 15:10
Lactic Acid Q4H
Comment: CANCEL 2nd LACTIC ACID IF 1st LACTIC ACID IS LESS THAN 2
Urinalysis Reflex To Culture Urgent
Date Specimen was Collected: 04/29/24
Time Specimen was Collected: 15:09
Urine Microscopic Reflex Cult Urgent
Urine Culture Urgent
MERRILL Source: U
Specimen Description:
Date Specimen was Collected: 04/29/24
Time Specimen was Collected: 15:09
04/29/24 15:57
HYDROmorphone [Dilaudid] 1 mg IV NOW STA
04/29/24 17:17
Cefepime HCl [Maxipime] 2,000 mg IV NOW STA
HYDROmorphone [Dilaudid] 1 mg IV NOW STA
04/29/24 18:56
Admit/Transfer Patient As Directed
Co-Sign Provider:
Level of Care: Inpatient admission
Assign to:: Medical/Surgical
Physician / Group: neelima
Diagnosis: UTi
Reason for Hospitalization: UTi
Expected length of stay greater than two midnights?: Yes
ELOS- Estimated Length of Stay in days: 3
I certify the patient meets the requirements for IP care: Yes
PRN Pain Medication Management As Directed
May give lesser potent ordered pain med per pt: Yes
preference::
Protocol:: Medication orders for pain may be administered in a
manner that supports deferring to patient preference
when the pt is:
- Requesting an ordered lesser potent pain medication.
Least to most potent pain medications are defined
as: acetaminophen < NSAID < tramadol < opioids
(morphine, oxycodone, hydromorphone).
- Requesting a lesser dose of the same medication IF
ORDERED.
- Requesting a less intrusive route of administration
if both routes are prescribed by the provider (PO <
IV).
04/29/24 18:57
Code Status As Directed
Resuscitation Status: Full Code
04/29/24 19:00
Lactic Acid Q4H
Comment: CANCEL 2nd LACTIC ACID IF 1st LACTIC ACID IS LESS THAN 2
04/29/24 19:20
UROLOGY CONSULT Routine
Consulting Provider: Ray Awad
Was physician already notified: Yes
04/29/24 19:27
EKG [Electrocardiogram (*1)] Stat
Reason for Study: QTc Monitoring
04/29/24 19:30
0.9% Sodium Chloride 1000 ml [Nss] 1,000 ml IV 80 mls/hr
04/29/24 21:00
Ondansetron Injectable [Zofran] 4 mg IV Q6HPRN PRN
Abnormal Lab Results
04/29/24 04/29/24
13:01 15:10
RBC 4.26 L 10^6/uL
(4.70-6.10)
Hgb 12.8 L g/dL
(13.0-18.0)
Hct 36.5 L %
(39.0-52.0)
Absolute Lymphs (auto) 0.5 L 10^3/uL
(1.2-3.4)
Absolute Monos (auto) 0.8 H 10^3/uL
(0.1-0.6)
Immature Gran % 0.6 H %
(0-0.5)
Lymphocytes % 9.4 L %
(20.5-51.1)
Monocytes % 16.4 H %
(1.7-9.3)
Sodium 131 L mmol/L
(135-145)
Chloride 93 L mmol/L
(98-107)
BUN 24 H mg/dl
(9-20)
Glucose 127 H mg/dl
(70-99)
Ur Occult Blood Reflex 3+ A
(Negative)
Leukocyte Esterase Rfl 2+ A
(Negative)
Urine RBC 70-80 A /HPF
(0-2)
Urine WBC (Reflex) 80-90 A /HPF
(0-5)
Urine Bacteria (Reflex) Moderate A
(Negative)
Urine Albumin (Reflex) 3+ A
(Neg - Trace)
04/29/24 13:01
04/29/24 13:01
Vital Signs
Initial and Last Documented VS:
Initial Vital Signs
Temp Pulse Resp BP Pulse Ox
97.6 F 73 18 137/77 98
04/29/24 12:46 04/29/24 12:46 04/29/24 12:46 04/29/24 12:46 04/29/24 12:46
Last Documented Vital Signs
Temp Pulse Resp BP Pulse Ox
97.6 F 84 15 128/63 96
04/29/24 12:46 04/29/24 19:00 04/29/24 19:00 04/29/24 19:00 04/29/24 19:00
MDM/Problems Addressed
MDM/Problems Addressed:
88-year-old male with history of prostate cancer and metastatic bone cancer with urostomy presenting for severe abdominal pain at 11 AM. Vital signs on arrival are normal.
On exam, patient is in no acute distress, however does appear uncomfortable secondary to pain. Generalized tenderness to the abdomen with voluntary guarding, no rebound. Concern for acute intra-abdominal process given patient's comorbidities.
Bowel obstruction is a consideration. Bladder scan obtained, no retention, urostomy appears to be appropriately draining. Plan for laboratory analysis, pain control with Dilaudid, CT abdominal imaging. Patient has allergy to IV contrast and
cannot currently tolerate p.o. contrast given nausea and pain. Will obtain dry scan.
18:00 -urine does show some signs of infection, however suspected colonization, taken for the bag. CT shows concern of bilateral hydronephrosis stranding and inflammation to the kidney and neobladder concerning for UTI. Also mention of new free
fluid in the right pelvis, reactive versus bladder leak without abscess. Will start on IV antibiotics. Urology made aware. Plan for admission
18:10 - per urology, no emergent intervention at this time.
*Critical Care Note
Total Time (30-74mins, 75-104mins- exclusive of procedures): Not Applicable
ED Attending Note
-
Portions of this chart may have been created with voice recognition software.� Occasional wrong word or��sound alike� substitutions may have occurred due to the inherent limitations of voice recognition software.
Discharge Plan
Departure
Patient Disposition: Admit
Date of Disposition: 04/29/24
Time of Disposition: 18:04
Presentation/result/management discussed w/ accepting MD/DO: Hospitalist
Patient with high blood pressure during this ER visit?: No
Condition: Fair
Discharge Problem:
Complicated urinary tract infection, Bilateral hydronephrosis
Interventions
Interventions:
*Risk Screen - Suicide Last Done: 04/29/24 12:46
*General Assessment Last Done: 04/29/24 12:46
*Neglect/Abuse Screening Last Done: 04/29/24 12:46
*ED COVID-19 Vaccine History Last Done: 04/29/24 14:24
PH-Bmuhks-Riexwqdqfp Assessment Last Done: 04/29/24 15:00
[2024-04-29] MEDS: MAXIPIME 2000 MG IV (17:36)
--- NOTE | 2024-04-29 18:35 | HPS.HSE ---
Family Physician
-
Family Physician: Jamila Ruiz MD
Chief Complaint
-
Abdominal pain
History of Present Illness
88-year-old male with history of metastatic bone cancer currently undergoing radiation, prostate cancer with urostomy, chronic lower back issues, diabetes, hypertension presenting to the emergency department for abdominal pain since this morning.
Has been constipated for the past several days, however does note that he is also been having runny diarrhea for past 3 nights. denies any fever, chills, congestion, cough. denies chest pain or difficulty breathing. Feels decreased output out of
his urostomy. As for past family, his urine was dark. His abdomen was distended. last dose of radiation was on Thursday. Pain radiates to his lower across the back.
Positive urinalysis. CT of abdomen pelvis with concern of UTI, new mild bilateral hydro, mild free fluid in the right pelvis. Patient received a dose of cefepime in ER. Patient also received Dilaudid and Zofran in ER. Patient received fluids in
ER. Admitting for further management
Medical History
Past Medical History
Past Medical History: Reports Other
Additional Past Medical History:
Hypertension
Hyperlipidemia
Osteoarthritis
GERD
Heart murmur
Prostate cancer
Chronic pain due to neoplasm
Low back pain
Pneumonia
Skin cancer
Lyme disease
Past Surgical History: Reports Other
Additional Past Surgical History:
Partial cystectomy with a loop diversion
Lump on the left testicle removed
Left ear excision of skin cancer
Hernia repair
Aba
Bilateral cataract excision
Social History
Tobacco: Non-smoker
Alcohol: None
Drug: None
Personal:
Living: With Family
Family History
Family History: Not pertinent
Allergies / Home Medications
Allergies reflects when Allergies were last updated in [facility].
Home Medications with original date entered in [facility]
Allergy/Medication List:
Allergies
Allergy/AdvReac Type Severity Reaction Status Date / Time
gadobutrol [From Gadavist] Allergy Hives Verified 04/29/24 12:44
surgical glue Allergy Itching Uncoded 04/29/24 12:44
Home Medications
ckfxpleo-tyq-rhdej acid 0.4 mg-lycopene 300 mcg-lutein 250 mcg tablet (Centrum Silver) 1 ea PO QPM Supplement 07/16/18
buprenorphine 10 mcg/hour weekly transdermal patch 15 mcg transdermal TH Pain 06/19/22
calcium carbonate (Calcium 600) 600 mg PO BID Supplement 06/19/22
polyethylene glycol 3350 17 gram oral powder packet (Miralax) 17 g PO DAILY Constipation 06/19/22
docusate sodium 50 mg capsule (Stool Softener) 100 mg PO DAILY Constipation 11/07/22
pantoprazole 40 mg tablet,delayed release (Protonix) 40 mg PO DAILY Gastrointestinal Issue 11/07/22
acetaminophen 325 mg tablet 650 mg (2 x 325 mg) PO Q4HPRN PRN Mild Pain / Temp > 101 #0 tabs 04/06/23
lisinopril 10 mg tablet 10 mg PO DAILY Blood pressure #30 tabs 04/06/23
abiraterone 250 mg tablet (Zytiga) 750 mg PO DAILY 04/29/24
hydrochlorothiazide 50 mg tablet 50 mg PO DAILY 04/29/24
hydrocodone 10 mg-acetaminophen 325 mg tablet 1 tab PO Q6H PRN pain 04/29/24
lidocaine 4 % topical patch (Lidocaine Pain Relief) 1 patch topical BID PRN pain 04/29/24
Review of Systems
-
Constitutional: Reports No Symptoms
EENT: Reports No Symptoms
Respiratory: Reports No Symptoms
Cardiac: Reports No Symptoms
Abdomen/GI: Reports Abdominal Pain, Diarrhea and Constipated
: Reports Dark Urine
Musculoskeletal: Reports No Symptoms
Skin: Reports No Symptoms
Neurological: Reports No Symptoms
Endocrine: Reports No Symptoms
Hematologic/Lymphatic: Reports No Symptoms
Psych: Reports No Symptoms
Physical Exam
Vital Signs
Vital Signs
Temp Pulse Resp BP Pulse Ox
97.6 F 77 18 131/76 96
04/29/24 12:46 04/29/24 18:00 04/29/24 18:00 04/29/24 18:00 04/29/24 18:00
Physical Exam
General: Well Developed, Well Nourished and No Apparent Distress
HEENT: NormoCephalic, Moist mucous membranes and Atraumatic
Respiratory: Clear
Cardiac: S1/S2 and Regular Rhythm; No Murmur or Rub
GI: Soft, Normal Bowel Sounds, Tender and Distended; No Organomegaly
Rectal: Deferred by Provider
Musculoskeletal: No Clubbing, No Cyanosis and No Edema
Skin: No Rash
Neuro: AO x 3 and Nonfocal/grossly intact
Psych: Calm
Laboratory Results
-
04/29/24 13:01
04/29/24 13:01
Laboratory Results
Lactic Acid 1.8 mmol/L (0.7-2.0) 04/29/24 15:10
Total Bilirubin 0.6 mg/dl (0.2-1.3) 04/29/24 13:01
AST 27 U/L (17-59) 04/29/24 13:01
ALT 17 U/L (0-50) 04/29/24 13:01
Alkaline Phosphatase 50 U/L (38-126) 04/29/24 13:01
Data Reviewed
-
CT Scan: Report Reviewed by me
Lab Data: Labs Reviewed by me
Impression/Plan
-
# Abdominal pain likely from UTI/new mild bilateral hydro nephrosis
-CT with impression of New stranding/inflammation surrounding the kidneys and neobladder of the right lower quadrant concerning for UTI. Clinical and laboratory correlation recommended.New mild bilateral hydronephrosis.New mild free fluid in the
right pelvis. This may be reactive. A bladder leak cannot be completely excluded. This does not have the appearance of an abscess.Visualized appendix within normal limits. The tip is not visualized and is adjacent to the above mentioned processes.
Acute appendicitis cannot be completely excluded.Stable simple left renal cyst. Stable.Too small to characterize hypodense left renal lesion likely a benign cyst. Stable
-IV cefepime
-Dilaudid.oxy as needed for pain
-Urology consulted
#diarrhea/nausea
-no diarrhea today
-consider stool, if continues to have diarrhea.
-clear liquid diet.
# Hyponatremia secondary to metastatic disease
-Sodium 131
-Continue to monitor
#Benign Hypertension
-Hold HCTZ due to hyponatremia
-Lisinopril continue with hold parameters
# GERD
-PPI continued
Metastatic Prostate Cancer with Chronic Pain
-Zytiga continued
-buprenorphine continued
-Lidocaine continued
-Hold oral hydrocodone
#Urostomy Status
- Stable.� Clear urine in device.
�- Routine ostomy care.
DVT Prophylaxis:� Lovenox
Code Status:� Full
--- NOTE | 2024-04-29 19:38 | W.PN.UPDATE ---
Update Note
Progress Note Update
This is an addendum to the H&P written by Nissa Gabriel on 04/29/2024. Patient seen and examined independently with MUSEUM INFORMAT[employer] SPECIALIST.
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
diarrhea for the past several days.
Labs unremarkable. Urinalysis indicating infection. CT abdomen pelvis shows new stranding/inflammation surrounding the kidneys and neobladder of the right lower quadrant concerning for UTI. There is new mild bilateral hydronephrosis. New mild
free fluid in the right pelvis which may be reactive, bladder leak cannot be completely excluded.
Patient's nausea and diarrhea likely secondary to recent radiation as well as current infection. Zofran, clear liquid diet, advance diet. Stool studies if ongoing diarrhea.
IV fluids. Check urine culture. Cefepime to treat complicated UTI. Urology is consulted.
--- NOTE | 2024-04-29 22:00 | PTCARENOTE ---
Received patient from ED accompanied by daughter. Patient weak and was moved directly from stretcher to the bed. Daughter helped with admission questions. Patient noted to have Buprenorphine patch on middle back that 'was applied night'.
VSS, IVF infusing. Patient oriented to the unit. Call mckeon in reach. Bed alarm placed for safety.
[2024-04-29] MEDS: OSCAL CAL 500 500 MG PO (22:30)
[2024-04-29] MEDS: DILAUDID 0.5 MG IV (22:37)
[2024-04-30] MEDS: TYLENOL 650 MG PO ×2 (00:26→08:25)
[2024-04-30] MEDS: STERILE WATER FOR INJECTION 10 ML IV ×3 (01:59→16:58)
[2024-04-30] MEDS: MAXIPIME 1000 MG IV ×3 (01:59→16:58)
[2024-04-30] MEDS: FLUSH (NSS) 2 FLUSH IV ×4 (02:04→16:59)
[2024-04-30 07:05] VITALS: BP 98/52
[2024-04-30] MEDS: OSCAL CAL 500 500 MG PO ×2 (08:25→19:56)
[2024-04-30] MEDS: DESENEX/MITRAZOL/ZEASORB 1 APPLIC TOPICAL (08:25)
[2024-04-30] MEDS: LIDOCAINE 4% PATCH TOPICAL ×2 (08:25→09:34)
[2024-04-30] MEDS: PROTONIX 40 MG PO (08:25)
--- NOTE | 2024-04-30 08:26 | W.PN.HOSP.TC ---
Addendum entered and electronically signed by Gloria Reed MD 04/30/24 08:49:
QUINTIN
-creatinine up to 1.8 this AM
-F/U urine studies
-stop Lisinopril
-continue IVF
Original Note:
Today's Communication/Plan
-
IV Cefepime
Clears
F/U further Urology recommendations
pain control
Assessment / Plan
Assessment / Plan
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
diarrhea for the past several days.
Labs unremarkable. Urinalysis indicating infection. CT abdomen pelvis shows new stranding/inflammation surrounding the kidneys and neobladder of the right lower quadrant concerning for UTI. There is new mild bilateral hydronephrosis. New mild
free fluid in the right pelvis which may be reactive, bladder leak cannot be completely excluded.
CT A/P
IMPRESSION: New stranding/inflammation surrounding the kidneys and neobladder of the right lower quadrant concerning for UTI. Clinical and laboratory correlation recommended.
New mild bilateral hydronephrosis.
New mild free fluid in the right pelvis. This may be reactive. A bladder leak cannot be completely excluded. This does not have the appearance of an abscess.
Visualized appendix within normal limits. The tip is not visualized and is adjacent to the above mentioned processes. Acute appendicitis cannot be completely excluded.
Stable simple left renal cyst. Stable.
Too small to characterize hypodense left renal lesion likely a benign cyst. Stable
# Abdominal pain likely from UTI
-CT results above
-IV cefepime
-Dilaudid/oxy as needed for pain
-Urology consulted
#diarrhea/nausea
-no diarrhea today
-consider stool, if continues to have diarrhea.
-clear liquid diet.
# Hyponatremia secondary to metastatic disease
-Sodium 131
-hold electroplater apprentice hCTZ
-Continue to monitor
#Benign Hypertension
-Hold HCTZ due to hyponatremia
-Lisinopril continue with hold parameters
# GERD
-PPI continued
Metastatic Prostate Cancer with Chronic Pain
-WEB UI DESIGNER Xtandi held while treating infection
-buprenorphine continued
-Lidocaine continued
-Hold oral hydrocodone
#Urostomy Status
- Stable.� Clear urine in device.
�- Routine ostomy care.
DVT Prophylaxis:� Lovenox
Code Status:� Full
51 minutes spent on patient care
Anticipated Discharge: > 48 hours
Subjective/Interval History
-
Date of Service: April 30, 2024
tolerating clear liquids
had diarrhea overnight
Objective Data
-
Labs:
Laboratory Results
04/30/24
07:00
Sodium Pending
Potassium Pending
Chloride Pending
Carbon Dioxide Pending
BUN Pending
Creatinine Pending
Glucose Pending
Calcium Pending
Vital Signs:
Vital Signs
Temp Pulse Resp BP Pulse Ox
100.7 F H 82 14 98/52 95
04/30/24 07:05 04/30/24 07:05 04/30/24 07:05 04/30/24 07:05 04/30/24 07:05
I&O
04/29/24 04/30/24 05/01/24
06:59 06:59 06:59
Intake Total 1280 / 1280
Output Total 650 / 650
Balance 630 / 630
Review of Systems
-
History Source: Patient
All other systems: Reviewed and negative
Physical Exam
-
General: Well Developed, Well Nourished and No Apparent Distress
HEENT: Normocephalic and Atraumatic
Respiratory: Clear to Auscultation; Negative Wheezes or Rhonchi
Cardiac: Regular Rhythm and S1/S2; Negative Murmur
GI: Soft, Nontender, Nondistended and Normal Bowel Sounds
Musculoskeletal: No Clubbing, No Cyanosis and No Edema
Neuro: Awake
Psych: Calm
Data Reviewed
-
Diagnostic Radiology: Report Reviewed by me
Labs: Labs Reviewed by me
[2024-04-30] MEDS: ZOFRAN 4 MG IV (08:27)
[2024-04-30 08:32] LABS: Blood Urea Nitrogen 33 mg/dl (9-20); Calcium 7.5 mg/dl (8.4-10.2); Carbon Dioxide 25 mmol/L (22-30); Chloride 96 mmol/L (98-107); Estimated Creatinine Clearance 30 ml/min; Glucose 122 mg/dl (70-99); Potassium 4.3 mmol/L (3.5-5.1); Sodium 132 mmol/L (135-145); eGFR 41.44
[2024-04-30] MEDS: CYMBALTA DELAYED RELEASE 30 MG PO (09:39)
[2024-04-30 10:09] VITALS: BMI 28.8
[2024-04-30 10:50] LABS: Urine Sodium 58 mmol/L (30-90)
--- NOTE | 2024-04-30 12:10 | CM ---
Reviewed the chart notes and spoke with the patient's daughter at the bedside. Patient was sleeping soundly. The patient resides in a one story home with a flight of stair to enter with spouse. The patient has a rollator for outside home and a
cane inside home. The patient has had [facility] in the past, but no SNF. The patient's pharmacy of choice is [facility] [address] [place]. continues to be available to patient/family and is monitoring medical plan for needs at discharge.
Plan: Discharge plans will depend on the patient's progress.
[2024-04-30] MEDS: NSS 1000 IV (13:15)
[2024-04-30 15:05] VITALS: BP 119/57
--- NOTE | 2024-04-30 15:15 | CONS.URO ---
Consultation
-
Performing Provider: Abadfer
Reason for Consultation: QUINTIN, Abdominal pain, hydronephrosis
Medical History
History of Present Illness
88yo patient with complex gu hx
hx of TURP/brachtherapy for prostate ca- then AUS for incontinence
developed intractable pain/bleeding and stricture dz
underwent partial cystectomy/ aus explant and ileal conduit urinary diversion in 2012
underwent right antegrade stone treatment in 2015
underwent incisional hernia repair in 2016
has had periodic drainage from penis and rectal bleeding since his operation
has had periods of penile pain and drainage treated with antibx
Febrile infection treated in the past for this
is being followed at [facility] for metastatic prostate cancer- currently with disease spread to bones and underging radiation
He presented this admission for 1 day of acute abdominal pain
He has had both diarrhea and constipation for 3 days
Noticed that urine has been darker than normal and decreased output. With his last ostomy change he feels his stoma was slightly more retracted than usual
He has not had discharge or bleeding from the penis other than what has become typical for him
CT showed mild b/l hydronephrosis, mild free fluid in pelvis
Positive UA
Received cefepime in ER and IVF
Past Medical History
Past Medical History: Other (Hypertension Hyperlipidemia Osteoarthritis GERD Heart murmur Prostate cancer Chronic pain due to neoplasm Low back pain Pneumonia Skin cancer Lyme disease)
Past Surgical History: Other (Partial cystectomy with a loop diversion Lump on the left testicle remove)
Social History
Alcohol: None
Drug: None
Personal:
Living: With Family
Family History
Family History: Reviewed & Not Pertinent
Allergies/Home Medications
Allergies
Allergy/AdvReac Type Severity Reaction Status Date / Time
gadobutrol [From Gadavist] Allergy Hives Verified 04/29/24 12:44
surgical glue Allergy Itching Uncoded 04/29/24 12:44
Home Medications
�Medication �Instructions �Recorded �Confirmed �Type
mqroryva-aoz-ikvpi acid 0.4 1 ea PO QPM Supplement 07/16/18 04/29/24 History
mg-lycopene 300 mcg-lutein 250 mcg
tablet (Centrum Silver)
buprenorphine 10 mcg/hour weekly 15 mcg transdermal TH Pain 06/19/22 04/29/24 History
transdermal patch
calcium carbonate (Calcium 600) 600 mg PO BID Supplement 06/19/22 04/29/24 History
polyethylene glycol 3350 17 gram 17 g PO DAILY Constipation 06/19/22 04/29/24 History
oral powder packet (Miralax)
docusate sodium 50 mg capsule 100 mg PO DAILY Constipation 11/07/22 04/29/24 History
(Stool Softener)
pantoprazole 40 mg tablet,delayed 40 mg PO DAILY Gastrointestinal 11/07/22 04/29/24 History
release (Protonix) Issue
acetaminophen 325 mg tablet 650 mg (2 x 325 mg) PO Q4HPRN PRN 04/06/23 04/30/24 Rx
Mild Pain / Temp > 101 #0 tabs
lisinopril 10 mg tablet 10 mg PO DAILY Blood pressure #30 04/06/23 04/29/24 Rx
tabs
hydrochlorothiazide 50 mg tablet 50 mg PO DAILY Fluid 04/29/24 04/29/24 History
Retention/Swelling
hydrocodone 10 mg-acetaminophen 1 tab PO Q6H PRN pain 04/29/24 04/29/24 History
325 mg tablet
lidocaine 4 % topical patch 1 patch topical BID PRN pain 04/29/24 04/29/24 History
(Lidocaine Pain Relief)
duloxetine 30 mg PO DAILY Mental 04/30/24 04/30/24 History
Health/Anxiety
enzalutamide 40 mg tablet (Xtandi) 120 mg PO DAILY Antineoplastic 04/30/24 04/30/24 History
Agent,
famotidine 20 mg tablet 20 mg PO BID Gastrointestinal Issue 04/30/24 04/30/24 History
Physical Exam
Vital Signs
Vital Signs
Temp Pulse Resp BP Pulse Ox
99.3 F 82 14 98/52 95
04/30/24 11:35 04/30/24 07:05 04/30/24 07:05 04/30/24 08:26 04/30/24 08:30
Lab / Testing Results
Laboratory Results
04/29/24 13:01
04/30/24 07:00
Physical Exam
General: Well Developed, Well Nourished and No Apparent Distress
Respiratory: Clear and Non Labored Respirations
GI: Soft, Non Distended and Tender (diffuse tenderness)
Genito-urinary: No Costovertebral Tend and Other (Ileal conduit, cloudy urine as normal with ileal mucus. )
Skin: Warm and Dry
Neuro: AO x 3
Psych: Calm and Intact Judgement
Assessment / Plan
-
88M with metastatic prostate cancer
s/p pelvic radiation with subsequent complications and eventual partial cystectomy and ileal conduit urinary diversion
Undergoing systemic therapy and radiation for bone metastases
Admitted for abdominal pain, possible UTI
Abdominal pain, hydronephrosis
- Unclear source of abdominal pain which has improved today without intervention other than abx/fluid
- Possibly due to UTI- continue antibiotic pending cultures
- No significant low pelvic or penile pain to suggest infection of bladder remnant, though he has had this in the past
- Ileal conduit and kidneys slightly more distended than on prior CT exams. Likely ureteral reflux with no obvious ureteral stenosis. Conduit widely patent through abdominal wall - possible mild distal obstruction due to positioning of new ostomy
appliance the day prior to pain starting?
- Urostomy appliance replaced and repositioned with a pope catheter in the stoma to maximize drainage
- Small R pelvic fluid collection, possible urine leak but low suspicion for abscess
- Maintain catheter in stoma at discharge, to be removed outpatient
- Follow up with Dr. Franks
Data Reviewed
-
CT Scan: Image personally visualized and interpreted
Lab Data: Labs Reviewed
[2024-04-30] MEDS: HEPARIN 5000 UNITS SC (19:56)
[2024-04-30] MEDS: DESENEX/MITRAZOL/ZEASORB TOPICAL (20:02)
[2024-04-30 23:19] VITALS: BP 121/69
[2024-05-01] MEDS: STERILE WATER FOR INJECTION 10 ML IV ×3 (01:35→17:19)
[2024-05-01] MEDS: MAXIPIME 1000 MG IV ×2 (01:36→10:44)
[2024-05-01] MEDS: NSS 1000 IV ×2 (01:38→20:22)
[2024-05-01 07:05] VITALS: BP 135/66
[2024-05-01] MEDS: CYMBALTA DELAYED RELEASE 30 MG PO (07:34)
[2024-05-01] MEDS: PROTONIX 40 MG PO (07:34)
[2024-05-01] MEDS: HEPARIN 5000 UNITS SC ×2 (07:35→20:23)
[2024-05-01] MEDS: OSCAL CAL 500 500 MG PO ×2 (07:35→20:23)
[2024-05-01] MEDS: LIDOCAINE 4% PATCH TOPICAL (07:35)
[2024-05-01] MEDS: DESENEX/MITRAZOL/ZEASORB 1 APPLIC TOPICAL ×2 (07:38→20:23)
[2024-05-01 07:51] LABS: Blood Urea Nitrogen 18 mg/dl (9-20); Calcium 7.4 mg/dl (8.4-10.2); Carbon Dioxide 28 mmol/L (22-30); Chloride 99 mmol/L (98-107); Estimated Creatinine Clearance 54 ml/min; Glucose 118 mg/dl (70-99); Magnesium 1.7 mg/dl (1.6-2.3); Potassium 4.3 mmol/L (3.5-5.1); Sodium 135 mmol/L (135-145); eGFR > 60.00
--- NOTE | 2024-05-01 08:14 | W.PN.HOSP.TC ---
Addendum entered and electronically signed by Gloria Reed MD 05/01/24 11:53:
urine culture vogel-sensitive --> transition to IV Ceftriaxone
Original Note:
Today's Communication/Plan
-
continue IV Cefepime while awaiting final cultures
stop fluids
advance diet
continue catheter in stoma, appreciate Urology
continue to hold lisinopril, HCTZ - monitor BP's
PT/OT
Assessment / Plan
Assessment / Plan
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
diarrhea for the past several days.
Labs unremarkable. Urinalysis indicating infection. CT abdomen pelvis shows new stranding/inflammation surrounding the kidneys and neobladder of the right lower quadrant concerning for UTI. There is new mild bilateral hydronephrosis. New mild
free fluid in the right pelvis which may be reactive, bladder leak cannot be completely excluded.
CT A/P
IMPRESSION: New stranding/inflammation surrounding the kidneys and neobladder of the right lower quadrant concerning for UTI. Clinical and laboratory correlation recommended.
New mild bilateral hydronephrosis.
New mild free fluid in the right pelvis. This may be reactive. A bladder leak cannot be completely excluded. This does not have the appearance of an abscess.
Visualized appendix within normal limits. The tip is not visualized and is adjacent to the above mentioned processes. Acute appendicitis cannot be completely excluded.
Stable simple left renal cyst. Stable.
Too small to characterize hypodense left renal lesion likely a benign cyst. Stable
# Abdominal pain likely from UTI/Pyelonephritis; new mild bilateral hydronephrosis
-CT results above
-IV cefepime
-Urine culture growing E. Coli, awaiting sensitivities
-pain that was present on admission now resolved, resume SHAKE FEEDER pain meds
-Urology consult appreciated
-s/p catheter placement in stoma on 04/30. Per Urology, conduit widely patent - possible mild distal obstruction? - maintain catheter in stoma at discharge
PT/OT ordered today
#diarrhea/nausea
-resolving
-likely 2/2 Pyelonephritis
-will advance diet
# Hyponatremia secondary to metastatic disease
-Sodium 131
-hold SHAKE FEEDER HCTZ
-Continue to monitor
QUINTIN
-creatinine up 04/30; resolved today
-s/p catheter placement in stoma by Urology 04/30
-stop fluids
#Benign Hypertension
-Hold HCTZ due to hyponatremia
-continue to hold Lisinopril today - monitor BP's
# GERD
-PPI continued
Metastatic Prostate Cancer with Chronic Pain
-SHAKE FEEDER Xtandi
-buprenorphine continued
-Lidocaine continued
-resume SHAKE FEEDER norco
#Urostomy Status
- Stable.� Clear urine in device.
�- Routine ostomy care.
DVT Prophylaxis:� Lovenox
Code Status:� Full
51 minutes spent on patient care
Anticipated Discharge: 24 - 48 hours
Subjective/Interval History
-
Date of Service: May 01, 2024
Objective Data
-
Labs:
Laboratory Results
05/01/24
06:39
WBC Pending
Hgb Pending
Hct Pending
Plt Count Pending
Sodium 135
Potassium 4.3
Chloride 99
Carbon Dioxide 28
BUN 18
Creatinine 0.9
Glucose 118 H
Calcium 7.4 L
Vital Signs:
Vital Signs
Temp Pulse Resp BP Pulse Ox
98.2 F 70 16 135/66 97
05/01/24 07:05 05/01/24 07:05 05/01/24 07:05 05/01/24 07:05 05/01/24 07:05
I&O
04/30/24 05/01/24 05/02/24
06:59 06:59 06:59
Intake Total 1280 / 1280 2520 / 2520
Output Total 650 / 650 3800 / 3800
Balance 630 / 630 -1280 / -1280
[2024-05-01 08:40] LABS: Hematocrit 30.7 % (39.0-52.0); Hemoglobin 10.8 g/dL (13.0-18.0); Mean Corp Hgb Conc. 35.2 g/dL (33.0-37.0); Mean Corpuscular Hgb 30.2 pg (27.0-31.0); Mean Corpuscular Volume 85.8 fL (80.0-94.0); Red Blood Cell Count 3.58 10^6/uL (4.70-6.10); White Blood Cell Count 4.1 10^3/uL (4.8-10.8)
[2024-05-01] MEDS: FLUSH (NSS) 2 FLUSH IV ×2 (10:45→17:21)
--- NOTE | 2024-05-01 11:13 | W.PN.URO.CBU ---
Today's Communication / Plan
-
Continue abx for suspected UTI
Maintain pope in ostomy at discharge, can be removed in about 1 week after UTI treated
Assessment / Plan
-
88M with metastatic prostate cancer
s/p pelvic radiation with subsequent complications and eventual partial cystectomy and ileal conduit urinary diversion
Undergoing systemic therapy and radiation for bone metastases
Admitted for abdominal pain, possible UTI
Abdominal pain, hydronephrosis
- Unclear source of abdominal pain which improved without intervention other than abx/fluid
- Possibly due to UTI- continue antibiotic at discharge for E coli UTI, vogel sensitive
- No significant low pelvic or penile pain to suggest infection of bladder remnant, which he has had in the past
- Ileal conduit and kidneys slightly more distended than on prior CT exams. Likely ureteral reflux with no obvious ureteral stenosis. Conduit widely patent through abdominal wall - possible mild distal obstruction due to positioning of new ostomy
appliance the day prior to pain starting - patient noted it was not 'sticking out' as much as usual and he may have obstructed the opening with appliance
- Urostomy appliance replaced and repositioned with a pope catheter in the stoma to maximize drainage. No stenosis noted on catheter placement
- QUINTIN resolved
- Small R pelvic fluid collection, possible urine leak but low suspicion for abscess. No intervention recommended
- Maintain catheter in stoma at discharge, to be removed outpatient
- Follow up with Dr. Franks
Diagnosis
-
Date of Service: May 01, 2024
-
Patient Diagnosis:
Abdominal pain
UTI
Pelvic fluid collection
QUINTIN
Post Op Day:
Subjective
-
Pain improved today
QUINTIN resolved
Objective
-
Vital Signs
Temp Pulse Resp BP Pulse Ox
98.2 F 70 16 135/66 97
05/01/24 07:05 05/01/24 07:05 05/01/24 07:05 05/01/24 07:05 05/01/24 07:05
Intake and Output
04/30/24 05/01/24 05/02/24
06:59 06:59 06:59
Intake Total 1280 / 1280 2520 / 2520
Output Total 650 / 650 3800 / 3800
Balance 630 / 630 -1280 / -1280
Intake:
Oral fluids 480 / 480 960 / 960
IV fluids (Total) 800 / 800 1560 / 1560
Output:
Urostomy output 650 / 650 3800 / 3800
Other:
How many times incontinent 1
SMALL amount urine
Number of unmeasured liquid
stools
Rectum 1
Laboratory Results
05/01/24 06:39
05/01/24 06:39
Physical Exam
-
General - well developed, well nourished, no acute distress
Chest - clear bilaterally
Abdomen - soft, non-tender
Pope in place within ostomy, clear urine
Skin - warm & dry with no rash
Neuro - AOx3, no motor deficits
[2024-05-01 15:05] VITALS: BP 117/64
[2024-05-01] MEDS: ROCEPHIN 1000 MG IV (17:19)
--- NOTE | 2024-05-01 18:14 | W.PN.UPDATE ---
Addendum entered and electronically signed by Gloria Reed MD 05/01/24 18:40:
patient reports abdominal fullness and difficulty eating x months, also has GERD with belching
-will resume his FUEL TESTING TECHNICIAN Pepcid, was not getting here
-continue FUEL TESTING TECHNICIAN Protonix
-consider GI referral here or at [facility] depending on patient's PO intake and below work-up
Addendum entered and electronically signed by Gloria Reed MD 05/01/24 18:18:
C. Diff negative
-will also test norovirus and stool culture
Original Note:
Update Note
Progress Note Update
per RN, patient with abdominal distention after eating
-will obtain x-ray
-decrease diet back to clears
-overnight provider to follow up x-ray
-will resume gentle fluids overnight with minimal oral intake today
[2024-05-01] MEDS: PEPCID 20 MG PO (21:35)
--- NOTE | 2024-05-01 22:15 | PTCARENOTE ---
Prior to abdominal X-Ray, pt had very large soft/loose BM. Notified DANYEL Vaughn of results per order. No new orders at this time. Pt resting comfortably in bed, no complaints at this time.
--- NOTE | 2024-05-01 22:17 | W.PN.UPDATE ---
Update Note
Progress Note Update
No significantly dilated air-filled loops of bowel are identified.
Air-fluid levels on the erect view, suggesting a degree of bowel stasis. No evidence for free intraperitoneal air.
[2024-05-01 23:37] VITALS: BP 135/56
[2024-05-02 06:50] LABS: Hematocrit 32.6 % (39.0-52.0); Hemoglobin 10.9 g/dL (13.0-18.0); Mean Corp Hgb Conc. 33.4 g/dL (33.0-37.0); Mean Corpuscular Hgb 29.5 pg (27.0-31.0); Mean Corpuscular Volume 88.1 fL (80.0-94.0); Mean Platelet Volume 10.4 fL (7.4-10.4); Platelet Count 149 10^3/uL (130-400); Red Cell Dist. Width 13.1 % (11.5-14.5); White Blood Cell Count 4.2 10^3/uL (4.8-10.8)
[2024-05-02 07:04] LABS: Blood Urea Nitrogen 15 mg/dl (9-20); Calcium 7.4 mg/dl (8.4-10.2); Carbon Dioxide 27 mmol/L (22-30); Chloride 99 mmol/L (98-107); Estimated Creatinine Clearance 61 ml/min; Glucose 109 mg/dl (70-99); Magnesium 1.5 mg/dl (1.6-2.3); Sodium 135 mmol/L (135-145); eGFR > 60.00
[2024-05-02 07:41] VITALS: BP 135/71
[2024-05-02] MEDS: DESENEX/MITRAZOL/ZEASORB 1 APPLIC TOPICAL ×2 (07:47→20:05)
[2024-05-02] MEDS: CYMBALTA DELAYED RELEASE 30 MG PO (07:47)
[2024-05-02] MEDS: PROTONIX 40 MG PO (07:47)
[2024-05-02] MEDS: LIDOCAINE 4% PATCH 2 PATCH TOPICAL (07:47)
[2024-05-02] MEDS: OSCAL CAL 500 500 MG PO (07:47)
[2024-05-02] MEDS: HEPARIN 5000 UNITS SC ×2 (07:47→20:05)
--- NOTE | 2024-05-02 08:45 | W.PN.HOSP.TC ---
Addendum entered and electronically signed by Pawel Gray MD 05/02/24 18:02:
I just spoke over the phone with Dr. De La Vega of gastroenterology, and right now we can hold off on GI consult, bowel stasis on x-ray not a significant concern. If patient's symptoms are not improving by tomorrow, then low threshold to have a CT
Abdomen Pelvis with IV and Oral Contrast performed.
Original Note:
Today's Communication/Plan
-
Still with significant nausea, suggestion of bowel stasis on imaging, patient sees Dr. Vu outpatient GI, consult GI given x-ray findings and persistent symptoms of inability to tolerate PO
Assessment / Plan
Assessment / Plan
Physical Exam
General: Well Developed, Well Nourished and No Apparent Distress
HEENT: Normocephalic and Atraumatic
Respiratory: Clear to Auscultation Bilaterally
Cardiac: Regular Rhythm and S1/S2
GI: Soft, Nondistended and Normal Bowel Sounds. Mildly tender on the epigastric and right side.
Musculoskeletal: No Cyanosis and No Edema
Neuro: Awake
Psych: Calm
Assessment/Plan
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
diarrhea for the past several days.
Labs unremarkable. Urinalysis indicating infection. CT abdomen pelvis shows new stranding/inflammation surrounding the kidneys and neobladder of the right lower quadrant concerning for UTI. There is new mild bilateral hydronephrosis. New mild
free fluid in the right pelvis which may be reactive, bladder leak cannot be completely excluded.
CT A/P
IMPRESSION: New stranding/inflammation surrounding the kidneys and neobladder of the right lower quadrant concerning for UTI. Clinical and laboratory correlation recommended.
New mild bilateral hydronephrosis.
New mild free fluid in the right pelvis. This may be reactive. A bladder leak cannot be completely excluded. This does not have the appearance of an abscess.
Visualized appendix within normal limits. The tip is not visualized and is adjacent to the above mentioned processes. Acute appendicitis cannot be completely excluded.
Stable simple left renal cyst. Stable.
Too small to characterize hypodense left renal lesion likely a benign cyst. Stable
# Abdominal pain likely from UTI/Pyelonephritis; new mild bilateral hydronephrosis
-CT results above
-IV cefepime transitioned to IV Ceftriaxone given urine culture showed vogel-sensitive E. coli
-pain that was present on admission now resolved, resume PHOTOGRAPHIC TECHNICIAN pain meds
-Urology consult appreciated
-s/p catheter placement in stoma on 04/30. Per Urology, conduit widely patent - possible mild distal obstruction? - maintain catheter in stoma at discharge
-Maintain Valladares in ostomy at discharge, can be removed in about 1 week after UTI treated
#diarrhea/nausea, possibly from antibiotics
#per RN, patient with abdominal distention after eating on 05/02/24
#abdominal fullness and difficulty eating x months, also has GERD with belching
-Symptoms have continued as of 05/02/24 per patient, with poor PO intake, given possibility of some bowel stasis, will consult GI (patient sees GI Dr. Vu outpatient)
-C. diff and Norovirus both negative, follow stool cultures
-likely at least partly 2/2 Pyelonephritis, but x-ray suggests bowel stasis
-Diarrhea and nausea could be from antibiotics
-x-ray: No significantly dilated air-filled loops of bowel are identified. Air-fluid levels on the erect view, suggesting a degree of bowel stasis. No evidence for free intraperitoneal air.
-Diet was decreased back to clears on 05/01/23, continue that for now
-Will resume gentle fluids overnight with minimal oral intake today
-Continue his PHOTOGRAPHIC TECHNICIAN Pepcid, was not getting here initially
-continue PHOTOGRAPHIC TECHNICIAN Protonix
# Hyponatremia - RESOLVED - secondary to metastatic disease
-Sodium 131
-hold PHOTOGRAPHIC TECHNICIAN HCTZ
-Continue to monitor
#QUINTIN - RESOLVED
-creatinine up 04/30; resolved after 04/30/24
-s/p catheter placement in stoma by Urology 04/30
#Hypomagnesemia
-Started oral magnesium
#Hypocalcemia
-Increased home Calcium dose
#Benign Hypertension
-Hold HCTZ due to hyponatremia
-continue to hold Lisinopril - monitor BP's
# GERD
-PPI continued
#Metastatic Prostate Cancer with Chronic Pain
-PHOTOGRAPHIC TECHNICIAN Xtandi
-buprenorphine continued
-Lidocaine continued
-resume PHOTOGRAPHIC TECHNICIAN norco
#Urostomy Status
- Stable.� Clear urine in device.
�- Routine ostomy care.
DVT Prophylaxis: Heparin for today, switch to�Lovenox starting tomorrow
Code Status:� Full
Anticipated Discharge: 24 - 48 hours
Subjective/Interval History
-
Date of Service: May 02, 2024
Patient was seen and examined. He still reported some nausea and feeling of abdominal distension.
Objective Data
-
Labs:
Laboratory Results
05/02/24
05:30
WBC 4.2 L
Hgb 10.9 L
Hct 32.6 L
Plt Count 149 D
Sodium 135
Potassium 4.0
Chloride 99
Carbon Dioxide 27
BUN 15
Creatinine 0.8
Glucose 109 H
Calcium 7.4 L
Vital Signs:
Vital Signs
Temp Pulse Resp BP Pulse Ox
97.9 F 75 18 135/71 95
05/02/24 07:41 05/02/24 07:41 05/02/24 07:41 05/02/24 07:41 05/02/24 07:41
I&O
05/01/24 05/02/24 05/03/24
06:59 06:59 06:59
Intake Total 2520 / 2520 1650 / 1650
Output Total 3800 / 3800 1725 / 1725
Balance -1280 / -1280 -75 / -75
[2024-05-02 08:49] LABS: Absolute Neutrophils -Man Diff 2.6 10^3/uL (1.4-6.5); Band Neutrophils 5 % (0-3); Lymphocytes 17 % (20-51); Metamyelocytes 1 % (-); Monocytes 19 % (2-9); Normal RBC Morphology Yes; Platelets Checked Yes; Segmented Neutrophils 58 % (42-75); Total Cells Counted 100
[2024-05-02] MEDS: MAGNESIUM OXIDE 500 MG PO (09:04)
[2024-05-02 09:12] LABS: Albumin 3.3 g/dl (3.5-5.0)
[2024-05-02] MEDS: TYLENOL 650 MG PO (11:22)
[2024-05-02] MEDS: NSS 1000 IV (11:39)
[2024-05-02] MEDS: OSCAL CAL 500 1000 MG PO ×3 (12:46→20:06)
[2024-05-02] MEDS: ROXICODONE 5 MG PO ×2 (12:46→20:10)
--- NOTE | 2024-05-02 14:16 | CM ---
Patient seen at bedside with
CM consult completed for d/c planning
PT rec HH
Options reviewed & prefers [facility]
tt liaison [facility]
Referral placed in [facility]port
PLAN: Home when medically stable with VN
[2024-05-02] MEDS: PEPCID 20 MG PO ×2 (14:17→20:06)
[2024-05-02 15:46] VITALS: BP 149/79
--- NOTE | 2024-05-02 16:01 | VNURNOTE ---
Home Health Liaison met with patient and spouse at bedside to discuss [facility] nurse/therapy, visits, schedule and homebound status. Patient is agreeable and understands that visits at home will be 2-3 x per week to assess and teach medical management.
[facility] brochure provided with contact information. Patient is aware that [facility] will contact them for start of care in 1-2 days after discharge from .
[facility] referral completed in [facility].
[2024-05-02 16:46] VITALS: BP 149/79
[2024-05-02] MEDS: STERILE WATER FOR INJECTION 10 ML IV (16:55)
[2024-05-02] MEDS: ROCEPHIN 1000 MG IV (16:56)
[2024-05-02 23:33] VITALS: BP 143/79
[2024-05-03 07:15] VITALS: BP 150/76
--- NOTE | 2024-05-03 07:33 | W.PN.HOSP.TC ---
Today's Communication/Plan
-
Doing better today
Advance diet
Continue antibiotics
Assessment / Plan
Assessment / Plan
Physical Exam
General: Well Developed, Well Nourished and No Apparent Distress
HEENT: Normocephalic and Atraumatic
Respiratory: Clear to Auscultation Bilaterally
Cardiac: Regular Rhythm and S1/S2
GI: Soft, Nondistended and Normal Bowel Sounds. Mildly tender on the epigastric and right side.
Musculoskeletal: No Cyanosis and No Edema
Neuro: Awake
Psych: Calm
Assessment/Plan
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
diarrhea for the past several days.
Labs unremarkable. Urinalysis indicating infection. CT abdomen pelvis shows new stranding/inflammation surrounding the kidneys and neobladder of the right lower quadrant concerning for UTI. There is new mild bilateral hydronephrosis. New mild
free fluid in the right pelvis which may be reactive, bladder leak cannot be completely excluded.
CT A/P
IMPRESSION: New stranding/inflammation surrounding the kidneys and neobladder of the right lower quadrant concerning for UTI. Clinical and laboratory correlation recommended.
New mild bilateral hydronephrosis.
New mild free fluid in the right pelvis. This may be reactive. A bladder leak cannot be completely excluded. This does not have the appearance of an abscess.
Visualized appendix within normal limits. The tip is not visualized and is adjacent to the above mentioned processes. Acute appendicitis cannot be completely excluded.
Stable simple left renal cyst. Stable.
Too small to characterize hypodense left renal lesion likely a benign cyst. Stable
# Abdominal pain likely from UTI/Pyelonephritis; new mild bilateral hydronephrosis
-CT results above
-IV cefepime transitioned to IV Ceftriaxone given urine culture showed vogel-sensitive E. coli
-pain that was present on admission now resolved, resume CORK INSULATOR HELPER pain meds
-Urology consult appreciated
-s/p catheter placement in stoma on 04/30. Per Urology, conduit widely patent - possible mild distal obstruction? - maintain catheter in stoma at discharge
-Maintain Valladares in ostomy at discharge, can be removed in about 1 week after UTI treated
#diarrhea/nausea, possibly from antibiotics
#per RN, patient with abdominal distention after eating on 05/02/24
#abdominal fullness and difficulty eating x months, also has GERD with belching
-Patient's nausea symptoms have improved as of 05/03/24
-C. diff and Norovirus both negative, follow stool cultures
-likely at least partly 2/2 Pyelonephritis, but x-ray suggests bowel stasis
-Diarrhea and nausea could be from antibiotics
-x-ray: No significantly dilated air-filled loops of bowel are identified. Air-fluid levels on the erect view, suggesting a degree of bowel stasis. No evidence for free intraperitoneal air.
-Diet was decreased back to clears given nausea, now advanced to low residue
-Will resume gentle fluids overnight with minimal oral intake today
-Continue his CORK INSULATOR HELPER Pepcid, was not getting here initially
-continue CORK INSULATOR HELPER Protonix
# Hyponatremia - RESOLVED - secondary to metastatic disease
-Sodium 131
-hold CORK INSULATOR HELPER HCTZ
-Continue to monitor
#QUINTIN - RESOLVED
-creatinine up 04/30; resolved after 04/30/24
-s/p catheter placement in stoma by Urology 04/30
#Hypomagnesemia
-Started oral magnesium
-IV Magnesium given on 05/03/24
#Hypocalcemia
-Increased home Calcium dose
-Correct low magnesium
#Benign Hypertension
-Hold HCTZ due to hyponatremia
-continue to hold Lisinopril - monitor BP's
# GERD
-PPI continued
#Metastatic Prostate Cancer with Chronic Pain
-CORK INSULATOR HELPER Xtandi
-buprenorphine continued
-Lidocaine continued
-resume CORK INSULATOR HELPER norco
#Urostomy Status
- Stable.� Clear urine in device.
�- Routine ostomy care.
DVT Prophylaxis: Lovenox subq
Code Status:� Full
Anticipated Discharge: Within 24 hours
Subjective/Interval History
-
Date of Service: May 03, 2024
Patient was seen and examined. He reported that his nausea symptoms are better today, he has been tolerating PO liquids.
Objective Data
-
Labs:
Laboratory Results
05/03/24
05:42
WBC Pending
Hgb Pending
Hct Pending
Plt Count Pending
Sodium Pending
Potassium Pending
Chloride Pending
Carbon Dioxide Pending
BUN Pending
Creatinine Pending
Glucose Pending
Calcium Pending
Vital Signs:
Vital Signs
Temp Pulse Resp BP Pulse Ox
98.5 F 78 17 150/76 95
05/03/24 07:15 05/03/24 07:15 05/03/24 07:15 05/03/24 07:15 05/03/24 07:15
I&O
05/02/24 05/03/24 05/04/24
06:59 06:59 06:59
Intake Total 1650 / 1650 1620 / 1620
Output Total 1725 / 1725 2200 / 2200
Balance -75 / -75 -580 / -580
[2024-05-03 07:37] LABS: Blood Urea Nitrogen 10 mg/dl (9-20); Calcium 7.3 mg/dl (8.4-10.2); Carbon Dioxide 26 mmol/L (22-30); Chloride 100 mmol/L (98-107); Estimated Creatinine Clearance 61 ml/min; Glucose 104 mg/dl (70-99); Magnesium 1.5 mg/dl (1.6-2.3); Potassium 3.7 mmol/L (3.5-5.1); Sodium 133 mmol/L (135-145); eGFR > 60.00
[2024-05-03] MEDS: CYMBALTA DELAYED RELEASE 30 MG PO (07:51)
[2024-05-03] MEDS: OSCAL CAL 500 1000 MG PO ×4 (07:52→22:44)
[2024-05-03] MEDS: MAGNESIUM OXIDE 500 MG PO (07:52)
[2024-05-03] MEDS: PROTONIX 40 MG PO (07:52)
[2024-05-03] MEDS: LIDOCAINE 4% PATCH 2 PATCH TOPICAL (07:52)
[2024-05-03] MEDS: DESENEX/MITRAZOL/ZEASORB 1 APPLIC TOPICAL ×2 (07:54→20:09)
[2024-05-03 08:08] LABS: Hematocrit 29.9 % (39.0-52.0); Hemoglobin 10.5 g/dL (13.0-18.0); Mean Corp Hgb Conc. 35.1 g/dL (33.0-37.0); Mean Corpuscular Hgb 30.3 pg (27.0-31.0); Mean Corpuscular Volume 86.2 fL (80.0-94.0); Mean Platelet Volume 10.3 fL (7.4-10.4); Platelet Count 147 10^3/uL (130-400); Red Blood Cell Count 3.47 10^6/uL (4.70-6.10); White Blood Cell Count 3.6 10^3/uL (4.8-10.8)
--- NOTE | 2024-05-03 09:45 | W.PN.URO.CBU ---
Today's Communication / Plan
-
Will remove Pope from urostomy in 1-2 weeks as outpatient
Assessment / Plan
-
88M with metastatic prostate cancer
s/p pelvic radiation with subsequent complications and eventual partial cystectomy and ileal conduit urinary diversion
Undergoing systemic therapy and radiation for bone metastases
Admitted for abdominal pain
UTI
Abdominal pain, hydronephrosis
- Unclear source of abdominal pain which improved without intervention other than abx/fluid
- Possibly due to UTI- continue antibiotic at discharge for E coli UTI, vogel sensitive
- No significant low pelvic or penile pain to suggest infection of bladder remnant, which he has had in the past
- Ileal conduit and kidneys slightly more distended than on prior CT exams. Likely ureteral reflux with no obvious ureteral stenosis. Conduit widely patent through abdominal wall - possible mild distal obstruction due to positioning of new ostomy
appliance the day prior to pain starting - patient noted it was not 'sticking out' as much as usual and he may have obstructed the opening with appliance
- Urostomy appliance replaced and repositioned with a pope catheter in the stoma to maximize drainage. No stenosis noted on catheter placement
- QUINTIN resolved
- Small R pelvic fluid collection, possible urine leak but low suspicion for abscess. No intervention recommended
- Maintain catheter in stoma at discharge, to be removed outpatient
- Follow up with Dr. Franks
Diagnosis
-
Date of Service: May 03, 2024
-
History of metastatic prostate cancer s/p partial cystectomy with ileeal loop urine diversion for management of radiation induced urethral stricture disease
Abdominal pain
UTI: vogel-sensitive E. coli
Pelvic fluid collection
QUINTIN: resolved
Subjective
-
c/o abdominal pain and diarrhea
Objective
-
Vital Signs
Temp Pulse Resp BP Pulse Ox
98.5 F 78 17 150/76 95
05/03/24 07:15 05/03/24 07:15 05/03/24 07:15 05/03/24 07:15 05/03/24 09:21
Intake and Output
05/02/24 05/03/24 05/04/24
06:59 06:59 06:59
Intake Total 1650 / 1650 1620 / 1620
Output Total 1725 / 1725 2200 / 2200
Balance -75 / -75 -580 / -580
Intake:
Oral fluids 1050 / 1050 1620 / 1620
IV fluids (Total) 600 / 600
Output:
Urostomy output 1725 / 1725 2200 / 2200
Laboratory Results
05/03/24 05:42
05/03/24 05:42
Review of Systems
-
Constitutional: Fatigue
Respiratory: No Symptoms
Cardiac: No Symptoms
Abdomen/GI: Abdominal Pain and Diarrhea
Neurological: No Symptoms
Physical Exam
-
General - well developed, well nourished, no acute distress
Abdomen - soft, stoma healthy with Pope draining elias urine
[2024-05-03] MEDS: DILAUDID 0.5 MG IV (09:55)
[2024-05-03 11:16] LABS: Absolute Neutrophils -Man Diff 2.1 10^3/uL (1.4-6.5); Band Neutrophils 2 % (0-3); Lymphocytes 24 % (20-51); Monocytes 16 % (2-9); Segmented Neutrophils 58 % (42-75)
[2024-05-03 11:17] LABS: Normal RBC Morphology Yes; Platelets Checked Yes; Total Cells Counted 100
[2024-05-03] MEDS: MAGNESIUM SULFATE 102 GRAMS IV (11:55)
[2024-05-03 12:53] VITALS: BP 137/83; PULSE 86
--- NOTE | 2024-05-03 14:45 | CM ---
Met with patient at bedside along with
[facility] referral in [facility] - accepted.
PLAN: home w/[facility] when medically stable
[2024-05-03] MEDS: PEPCID 20 MG PO ×2 (15:01→22:45)
[2024-05-03 15:09] VITALS: BP 126/69
[2024-05-03] MEDS: ROCEPHIN 1000 MG IV (17:30)
[2024-05-03] MEDS: STERILE WATER FOR INJECTION 10 ML IV (17:30)
[2024-05-03] MEDS: LOVENOX 40 MG SC (17:31)
[2024-05-03 23:07] VITALS: BP 134/72
[2024-05-04] MEDS: ROXICODONE 5 MG PO ×4 (00:18→19:53)
[2024-05-04 05:59] LABS: Hematocrit 29.2 % (39.0-52.0); Hemoglobin 10.4 g/dL (13.0-18.0); Mean Corp Hgb Conc. 35.6 g/dL (33.0-37.0); Mean Corpuscular Hgb 30.4 pg (27.0-31.0); Mean Corpuscular Volume 85.4 fL (80.0-94.0); Mean Platelet Volume 9.8 fL (7.4-10.4); Platelet Count 163 10^3/uL (130-400); Red Blood Cell Count 3.42 10^6/uL (4.70-6.10); Red Cell Dist. Width 12.8 % (11.5-14.5); White Blood Cell Count 3.9 10^3/uL (4.8-10.8)
[2024-05-04 06:24] LABS: Blood Urea Nitrogen 11 mg/dl (9-20); Calcium 7.7 mg/dl (8.4-10.2); Carbon Dioxide 25 mmol/L (22-30); Chloride 100 mmol/L (98-107); Estimated Creatinine Clearance 54 ml/min; Glucose 112 mg/dl (70-99); Magnesium 1.7 mg/dl (1.6-2.3); Potassium 3.9 mmol/L (3.5-5.1); Sodium 134 mmol/L (135-145); eGFR > 60.00
[2024-05-04 07:32] LABS: Absolute Neutrophils -Man Diff 2.2 10^3/uL (1.4-6.5); Band Neutrophils 0 % (0-3); Lymphocytes 26 % (20-51); Monocytes 14 % (2-9); Myelocytes 2 % (-); Platelets Checked Yes; Segmented Neutrophils 58 % (42-75)
[2024-05-04 07:33] LABS: Hypochromasia 1+; Normal RBC Morphology No; Total Cells Counted 100
[2024-05-04 07:42] VITALS: BP 154/80
--- NOTE | 2024-05-04 07:42 | W.PN.HOSP.TC ---
Today's Communication/Plan
-
Still with epigastric fullness and diarrhea right after eating
No concern for ACS
Discussing with GI options, patient cannot tolerate the contrast for CT Abdomen/Pelvis if done with contrast
Assessment / Plan
Assessment / Plan
Physical Exam
General: Well Developed, Well Nourished and No Apparent Distress
HEENT: Normocephalic and Atraumatic
Respiratory: Clear to Auscultation Bilaterally
Cardiac: Regular Rhythm and S1/S2
GI: Soft, Nondistended and Normal Bowel Sounds. Mildly tender on the epigastric and right side.
Musculoskeletal: No Cyanosis and No Edema
Neuro: Awake
Psych: Calm
Assessment/Plan
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
diarrhea for the past several days.
Labs unremarkable. Urinalysis indicating infection. CT abdomen pelvis shows new stranding/inflammation surrounding the kidneys and neobladder of the right lower quadrant concerning for UTI. There is new mild bilateral hydronephrosis. New mild
free fluid in the right pelvis which may be reactive, bladder leak cannot be completely excluded.
CT A/P
IMPRESSION: New stranding/inflammation surrounding the kidneys and neobladder of the right lower quadrant concerning for UTI. Clinical and laboratory correlation recommended.
New mild bilateral hydronephrosis.
New mild free fluid in the right pelvis. This may be reactive. A bladder leak cannot be completely excluded. This does not have the appearance of an abscess.
Visualized appendix within normal limits. The tip is not visualized and is adjacent to the above mentioned processes. Acute appendicitis cannot be completely excluded.
Stable simple left renal cyst. Stable.
Too small to characterize hypodense left renal lesion likely a benign cyst. Stable
# Abdominal pain likely from UTI/Pyelonephritis; new mild bilateral hydronephrosis
-CT results above
-IV cefepime transitioned to IV Ceftriaxone given urine culture showed vogel-sensitive E. coli
-pain that was present on admission now resolved, resume LAYOUT FORMER pain meds
-Urology consult appreciated
-s/p catheter placement in stoma on 04/30. Per Urology, conduit widely patent - possible mild distal obstruction? - maintain catheter in stoma at discharge
-Maintain Valladares in ostomy at discharge, can be removed in about 1 week after UTI treated
#diarrhea/nausea, possibly from antibiotics
#per RN, patient with abdominal distention after eating on 05/02/24
#abdominal fullness and difficulty eating x months, also has GERD with belching
-Patient's nausea, epigastric fullness and diarrhea have returned on 05/04/24 while eating low residue diet -- discussed with GI today who will review case -- CT with contrast cannot be done due to patient's contrast dye allergy
-C. diff and Norovirus both negative, follow stool cultures
-Likely at least partly 2/2 Pyelonephritis, but x-ray suggests bowel stasis
-Diarrhea and nausea could be from antibiotics
-x-ray: No significantly dilated air-filled loops of bowel are identified. Air-fluid levels on the erect view, suggesting a degree of bowel stasis. No evidence for free intraperitoneal air.
-Diet was decreased back to clears given nausea, now advanced to low residue
-Will resume gentle fluids overnight with minimal oral intake today
-Continue his LAYOUT FORMER Pepcid, was not getting here initially
-continue LAYOUT FORMER Protonix
# Hyponatremia - RESOLVED - secondary to metastatic disease
-Sodium 131
-hold LAYOUT FORMER HCTZ
-Continue to monitor
#QUINTIN - RESOLVED
-creatinine up 04/30; resolved after 04/30/24
-s/p catheter placement in stoma by Urology 04/30
#Hypomagnesemia
-Started oral magnesium
-IV Magnesium given on 05/03/24
- Improved
#Hypocalcemia
-Increased home Calcium dose
-Correct low magnesium
#Benign Hypertension
-Hold HCTZ due to hyponatremia
-continue to hold Lisinopril - monitor BP's
# GERD
-PPI continued
#Metastatic Prostate Cancer with Chronic Pain
-LAYOUT FORMER Xtandi
-buprenorphine continued
-Lidocaine continued
-resume LAYOUT FORMER norco
#Urostomy Status
- Stable.� Clear urine in device.
�- Routine ostomy care.
DVT Prophylaxis: Lovenox subq (was on Heparin subq earlier on during the hospitalization)
Code Status:� Full
Anticipated Discharge: > 48 hours
Subjective/Interval History
-
Date of Service: May 04, 2024
Patient was seen and examined. Since his diet was advanced, he reported that after he eats he has a 'full' feeling in his stomach and epigastric area, followed shortly by diarrhea.
Objective Data
-
Labs:
Laboratory Results
05/04/24
05:36
WBC 3.9 L
Hgb 10.4 L
Hct 29.2 L
Plt Count 163
Sodium 134 L
Potassium 3.9
Chloride 100
Carbon Dioxide 25
BUN 11
Creatinine 0.9
Glucose 112 H
Calcium 7.7 L
Vital Signs:
Vital Signs
Temp Pulse Resp BP Pulse Ox
99.5 F 88 18 134/72 97
05/03/24 23:07 05/03/24 23:07 05/03/24 23:07 05/03/24 23:07 05/04/24 00:37
I&O
05/03/24 05/04/24 05/05/24
06:59 06:59 06:59
Intake Total 1620 / 1620 1180 / 1180
Output Total 2200 / 2200 1300 / 1300
Balance -580 / -580 -120 / -120
[2024-05-04] MEDS: LIDOCAINE 4% PATCH 1 PATCH TOPICAL (08:20)
[2024-05-04] MEDS: OSCAL CAL 500 1000 MG PO ×4 (08:21→22:31)
[2024-05-04] MEDS: PROTONIX 40 MG PO (08:22)
[2024-05-04] MEDS: MAGNESIUM OXIDE 500 MG PO (08:22)
[2024-05-04] MEDS: DESENEX/MITRAZOL/ZEASORB 1 APPLIC TOPICAL ×2 (08:22→19:42)
[2024-05-04] MEDS: CYMBALTA DELAYED RELEASE 30 MG PO (08:22)
[2024-05-04 09:20] LABS: Albumin 3.1 g/dl (3.5-5.0)
[2024-05-04] MEDS: MAGNESIUM SULFATE 50 IV (09:22)
[2024-05-04 09:27] LABS: Troponin I < 0.012 ng/ml
[2024-05-04 14:47] LABS: Troponin I < 0.012 ng/ml
[2024-05-04] MEDS: PEPCID 20 MG PO ×2 (15:04→22:32)
[2024-05-04 15:07] VITALS: BP 122/66
[2024-05-04] MEDS: LOVENOX 40 MG SC (17:12)
[2024-05-04] MEDS: ROCEPHIN 1000 MG IV (17:13)
--- NOTE | 2024-05-04 17:13 | CON.GI ---
Addendum entered and electronically signed by Mary Ellen Hughes MD 05/04/24 17:55:
I saw and examined the patient.
The BALANCING MACHINE OPERATOR's note was reviewed and I agree with the note.
Comment:
Mr. Mcpherson is a 88-year-old male with complex medical history as listed below including prostate cancer status post TURP with brachytherapy and also then developed complications from pelvic radiation and underwent a partial cystectomy with ileal
conduit in 2012 and is now currently being treated for metastatic prostate CA with bone mets and receiving radiation and on Xtandi and follows up with oncology at [facility] who presented with symptoms of abdominal pain with nausea vomiting and
diarrhea on 04/29 was diagnosed with a possible UTI and pyelonephritis and has been on antibiotics since admission.� We were consulted for symptoms of epigastric discomfort with fullness and loss of appetite.� He has had stool norovirus negative and
cultures negative.� He does have a history of reflux and follows up with Dr. Vu had an endoscopy in 2022 which was normal and biopsies were negative for EOE at that time and has been taking Pepcid twice daily and pantoprazole daily with adequate
control of his reflux symptoms.� At home he does alternate between diarrhea and constipation and uses MiraLAX and stool softener daily for constipation. he did have an obstruction series done on 05/01 which shows no bowel obstruction but shows
air-fluid levels suggesting possible stasis or ileus.� No vomiting currently.� He has been having loose bowel movements but he is also been getting oral magnesium for hypomagnesemia.
Assessment and plan:
1.Symptoms of abdominal pain generalized but more in the epigastric area for the past 2 to 3 days with nausea and loss of appetite but no vomiting could be related to ileus, GERD possible gastritis. He was r/o for ACS. LFTS normal on admission. Will
get Lipase level. symptoms could also be related to pyelonephritis and UTI.� Given possible ileus noted on x-ray will repeat CT with oral contrast to rule out possible partial small bowel obstruction given his multiple surgeries in the past and
radiation to pelvis. Continue Pepcid twice daily and pantoprazole daily. Will add protein supplements to his diet and encourage small frequent meals.
2. Chronic diarrhea alternating with constipation possible IBS- M and now more diarrhea may be related to antibiotic associated diarrhea. 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
proctitis but currently has no bleeding related to this.� would consider discontinuing magnesium given his diarrhea and will also check stool for C. difficile.�
Original Note:
Consultation
-
Date/Time Consultation Requested: 05/04/24 1655
Date/Time Consultation Performed: 05/04/24 1700
Requesting Provider: Dr. Gray
Performing Provider: Dr. Hughes/DANYEL Aldana
Reason for Consultation: diarrhea, early satiety
Medical History
Chief Complaint / HPI
Chief Complaint: abd pain
History of Present Illness:
88-year-old male with past medical history of bladder cancer, prostate cancer with bony mets with history of partial cystectomy, prostatectomy with brachytherapy implants, now undergoing XRT and CTX, ureteral diversion with ileal loop neobladder and
right lower quadrant urostomy, fatty liver, hypertension, spinal stenosis, nephrolithiasis, pneumonia, osteoarthritis, Lyme's disease, GERD, heart murmur and diabetes who presents to the emergency room on 04/29/2024 after having alternation diarrhea
and constipation. Decreased output from urostomy, dark urine, distended abdomen with pain that radiates across to his lower back. CT of the abdomen and pelvis with IV contrast showing hydronephrosis. Patient was being treated for E. coli UTI,
seen by urology as also had QUINTIN which improved with IV fluids. There was a small right pelvic fluid collection possibly secondary to urine leak but low suspicion for abscess. Urology felt no intervention was recommended. Patient does have a
history of GERD on pantoprazole as well as Pepcid daily. Patient was having some fullness with abdominal distention after eating. He was having loose stools. Stool culture and norovirus were negative. Abdominal x-ray was performed on 05/01/2024
showing air-fluid levels within loops of small and large bowel. Suggesting a degree of bowel stasis. No convincing evidence of obstruction. Patient denies any vomiting. He is still having loose stools. He was also placed on Mag-Ox daily since
05/02/2024. He was on a clear liquid diet until today. Prior to this it was documented that he consumed 100% of his diet. He is on a low residue diet today. He states that he feels full after eating small quantity. He denies any fevers, chills,
vomiting, melena, hematochezia, dysphagia or odynophagia.
Past Medical History
Past Medical History: Other (Bladder cancer, prostate cancer, bony mets, fatty liver, spinal stenosis, nephrolithiasis, pneumonia, osteoarthritis, Lyme's disease, GERD, heart murmur, diabetes)
Past Surgical History: Other (Partial cystectomy, prostatectomy, ureteral diversion with ileal loop neobladder, right lower quadrant urostomy, Skin cancer excision, suprapubic incisional hernia repair, cataract excision)
Social History
Tobacco: Non-Smoker
Alcohol: None
Drug: None
Personal:
Living: With Family
Employment: Retired
Family History
Family History: Other (Mother history of colon cancer, no family history of inflammatory bowel disease)
Allergies / Home Medications
Allergy/AdvReac Type Severity Reaction Status Date / Time
gadobutrol [From Gadavist] Allergy Hives Verified 04/29/24 12:44
surgical glue Allergy Itching Uncoded 04/29/24 12:44
�Medication �Instructions �Recorded
iebbtdov-afn-lfdja acid 0.4 1 ea PO QPM Supplement 07/16/18
mg-lycopene 300 mcg-lutein 250 mcg
tablet (Centrum Silver)
buprenorphine 10 mcg/hour weekly 15 mcg transdermal TH Pain 06/19/22
transdermal patch
calcium carbonate (Calcium 600) 600 mg PO BID Supplement 06/19/22
polyethylene glycol 3350 17 gram 17 g PO DAILY Constipation 06/19/22
oral powder packet (Miralax)
docusate sodium 50 mg capsule 100 mg PO DAILY Constipation 11/07/22
(Stool Softener)
pantoprazole 40 mg tablet,delayed 40 mg PO DAILY Gastrointestinal 11/07/22
release (Protonix) Issue
acetaminophen 325 mg tablet 650 mg (2 x 325 mg) PO Q4HPRN PRN 04/06/23
Mild Pain / Temp > 101 #0 tabs
lisinopril 10 mg tablet 10 mg PO DAILY Blood pressure #30 04/06/23
tabs
hydrochlorothiazide 50 mg tablet 50 mg PO DAILY Fluid 04/29/24
Retention/Swelling
hydrocodone 10 mg-acetaminophen 1 tab PO Q6H PRN pain 04/29/24
325 mg tablet
lidocaine 4 % topical patch 1 patch topical BID PRN pain 04/29/24
(Lidocaine Pain Relief)
duloxetine 30 mg PO DAILY Mental 04/30/24
Health/Anxiety
enzalutamide 40 mg tablet (Xtandi) 120 mg PO DAILY Antineoplastic 04/30/24
Agent,
famotidine 20 mg tablet 20 mg PO BID Gastrointestinal Issue 04/30/24
Review of Systems
-
All other systems: A 12 pt ROS was Negative except as stated above in HPI
Vital Signs
Temp Pulse Resp BP Pulse Ox
98.9 F 79 18 122/66 98
05/04/24 15:07 05/04/24 15:07 05/04/24 15:07 05/04/24 15:07 05/04/24 15:07
Physical Exam
Exam
General: No Apparent Distress
HEENT: Anicteric
Respiratory: Clear (Anterior)
Cardiac: Regular Rhythm and Murmur
GI: Soft, Non Distended, Normal Bowel Sounds, Tender (Mild tenderness right upper quadrant to right flank) and Other (Right mid abdomen urostomy)
Musculoskeletal: No Edema
Skin: Warm and Dry
Neuro: AO x 3
Psych: Calm
Results
WBC 3.9 10^3/uL (4.8-10.8) L 05/04/24 05:36
Hgb 10.4 g/dL (13.0-18.0) L 05/04/24 05:36
Hct 29.2 % (39.0-52.0) L 05/04/24 05:36
MCV 85.4 fL (80.0-94.0) 05/04/24 05:36
Plt Count 163 10^3/uL (130-400) 05/04/24 05:36
Absolute Neuts (auto) 3.6 10^3/uL (1.4-6.5) 04/29/24 13:01
Sodium 134 mmol/L (135-145) L 05/04/24 05:36
Potassium 3.9 mmol/L (3.5-5.1) 05/04/24 05:36
Chloride 100 mmol/L (98-107) 05/04/24 05:36
Carbon Dioxide 25 mmol/L (22-30) 05/04/24 05:36
BUN 11 mg/dl (9-20) 05/04/24 05:36
Creatinine 0.9 mg/dL (0.7-1.3) 05/04/24 05:36
Calcium 7.7 mg/dl (8.4-10.2) L 05/04/24 05:36
Total Bilirubin 0.6 mg/dl (0.2-1.3) 04/29/24 13:01
AST 27 U/L (17-59) 04/29/24 13:01
ALT 17 U/L (0-50) 04/29/24 13:01
Alkaline Phosphatase 50 U/L (38-126) 04/29/24 13:01
Diagnostic Image Results:
Abd XR 05/01/24:
IMPRESSION: No significantly dilated air-filled loops of bowel are identified.
Air-fluid levels on the erect view, suggesting a degree of bowel stasis. No evidence for free intraperitoneal air
CT Abd/PElvis without IV or Oral contrast 04/29/24:
IMPRESSION: New stranding/inflammation surrounding the kidneys and neobladder of the right lower quadrant concerning for UTI. Clinical and laboratory correlation recommended.
New mild bilateral hydronephrosis.
New mild free fluid in the right pelvis. This may be reactive. A bladder leak cannot be completely excluded. This does not have the appearance of an abscess.
Visualized appendix within normal limits. The tip is not visualized and is adjacent to the above mentioned processes. Acute appendicitis cannot be completely excluded.
Stable simple left renal cyst. Stable.
Too small to characterize hypodense left renal lesion likely a benign cyst. Stable
Prior GI Procedures:
EGD: 10/30/22 ([facility]) - Normal esophagus.
- Normal stomach.
- Normal examined duodenum.
- Biopsies were taken with a cold forceps for
evaluation of eosinophilic esophagitis.
Colonoscopy: 08/28/20 ([facility]) - One 4 mm polyp in the sigmoid colon, removed with a
cold snare. Resected and retrieved.
- One diminutive polyp in the ascending colon, removed
with a [employer] cold forceps. Resected and retrieved.
- A single non-bleeding colonic angioectasia.
- Localized mild inflammation was found in the rectum
secondary to radiation proctitis. Biopsied.
COLO 05/04/2015 - One 4 mm polyp in the transverse colon. Resected and
retrieved.
- A few non-bleeding colonic angioectasias.
Assessment / Plan
-
88-year-old male with past medical history of bladder cancer, prostate cancer with bony mets with history of partial cystectomy, prostatectomy with brachytherapy implants, now undergoing XRT and CTX, ureteral diversion with ileal loop neobladder and
right lower quadrant urostomy, fatty liver, hypertension, spinal stenosis, nephrolithiasis, pneumonia, osteoarthritis, Lyme's disease, GERD, heart murmur and diabetes who presents to the emergency room on 04/29/2024 after having alternation diarrhea
and constipation. Decreased output from urostomy, dark urine, distended abdomen with pain that radiates across to his lower back.After being treated for E. coli UTI, pyelonephritis patient still with some nausea and abdominal fullness as well as
diarrhea. We are asked to evaluate for the same.
Impression:
Diarrhea
Nausea/early satiety
Right upper quadrant/flank pain
E. coli UTI
Pyelonephritis
Plan:
-Check CT Abd/Pelvis with oral contrast only
-Check stool CDiff, this was never performed
-Would stop oral Magnesium as likely contributing to diarrhea
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
-continue Pantoprazole and Pepcid
-Further recommendatiosn to be forthcoming.
-
-
Thank you for consultation and allowing me to participate in the patient's care. Please call the project consultant GI physician during the after hours with any questions or concerns.
[2024-05-04] MEDS: STERILE WATER FOR INJECTION 10 ML IV (17:14)
[2024-05-04 19:26] LABS: Troponin I < 0.012 ng/ml
[2024-05-04 23:42] VITALS: BP 126/71
[2024-05-05 02:57] LABS: Troponin I < 0.012 ng/ml
[2024-05-05 06:18] LABS: Blood Urea Nitrogen 17 mg/dl (9-20); Calcium 7.4 mg/dl (8.4-10.2); Carbon Dioxide 25 mmol/L (22-30); Chloride 100 mmol/L (98-107); Glucose 110 mg/dl (70-99); Lipase 38 U/L (23-300); Magnesium 1.8 mg/dl (1.6-2.3); Sodium 135 mmol/L (135-145)
[2024-05-05 06:27] LABS: Estimated Creatinine Clearance 49 ml/min; eGFR > 60.00
[2024-05-05 07:50] VITALS: BP 143/82
--- NOTE | 2024-05-05 08:25 | W.PN.GI.CBS2 ---
Today's Communication / Plan
-
Lipase wnl and stool studies (-) for infectious etiology including C Diff. Obtain CT Abd/pelvis w/ oral contrast today. See rest of care as outlined below.
Assessment / Plan
-
Mr. Mcpherson is a 88-year-old male with complex medical history as listed below including prostate cancer status post TURP with brachytherapy and also then developed complications from pelvic radiation and underwent a partial cystectomy with ileal
conduit in 2012 and is now currently being treated for metastatic prostate CA with bone mets and receiving radiation and on Xtandi and follows up with oncology at [place] who presented with symptoms of abdominal pain with nausea vomiting and
diarrhea on 04/29 was diagnosed with a possible UTI and pyelonephritis and has been on antibiotics since admission.� We were consulted for symptoms of epigastric discomfort with fullness and loss of appetite.� He has had stool norovirus negative and
cultures negative.� He does have a history of reflux and follows up with Dr. Vu had an endoscopy in 2022 which was normal and biopsies were negative for EOE at that time and has been taking Pepcid twice daily and pantoprazole daily with adequate
control of his reflux symptoms.� At home he does alternate between diarrhea and constipation and uses MiraLAX and stool softener daily for constipation. he did have an obstruction series done on 05/01 which shows no bowel obstruction but shows
air-fluid levels suggesting possible stasis or ileus.� No vomiting currently.� He has been having loose bowel movements but he is also been getting oral magnesium for hypomagnesemia.
#Abdominal Discomfort
#Nausea #Bloating
Unclear etiology of abdominal pain generalized but more in the epigastric area for the past 2 to 3 days with nausea and loss of appetite but no vomiting could be related to ileus, GERD possible gastritis. He was r/o for ACS. LFTS normal on
admission. Lipase also wnl and prior stool studies (-) for infectious etiology as well. Previous concern for potential ileus on prior KUB. Still suspect possibly related to pyelonephritis and UTI. Given his ongoign symptoms (although seem to be
improving) would obtain repeat cross-sectional imaging.
Recs:
- Diet as tolerated with small/frequent meals once CT obtained
- Obtain repeat CT Abd/pelvis w/ oral contrast, will f/u results
- Continue empiric PPI and Pepcid twice daily for maximal acid suppression
- No plans for an EGD at this time
- If CT imaging unrevealing, could consider trial of Bentyl
#Acute on Chronic Diarrhea
Chronic diarrhea alternating with constipation possible IBS- M and now more diarrhea may be related to antibiotic associated diarrhea. 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
proctitis but currently has no bleeding related to this.� Stool studies and C Diff (-).
- Defer further w/u given improvement since discontinuing magnesium
- Obtain CT imaging as above
- Possibly due to antibiotic-associated diarrhea, thus would defer further w/u while inpatient
- If ongoing symptoms as outpatient, would then pursue chronic diarrhea w/u as outpatient
- Again, if CT is grossly unrevealing would consider trial of bentyl while inpatient
Discussed with primary internal medicine team this AM. GI will continue to follow, please notify once CT has been obtained.
Subjective
Subjective
Date of Service: May 05, 2024
- C Diff r/o with (-) C Diff [facility] antigen/toxin assay 05/04 ; prior stool culture (-) on 05/02
- Lipase wnl (38)
- Otherwise, no acute events overnight
Feeling well this morning, denies any current abdominal pain at present. Does note occasional post-prandial discomfort/fullness after meals. No recent nausea/vomiting. Planning on going for CT scan today.
Objective
Data Reviewed
Laboratory Data:
Laboratory Results
05/04/24 05:36
05/05/24 05:06
Laboratory Results
Magnesium 1.8 mg/dl (1.6-2.3) 05/05/24 05:06
Total Bilirubin 0.6 mg/dl (0.2-1.3) 04/29/24 13:01
AST 27 U/L (17-59) 04/29/24 13:01
ALT 17 U/L (0-50) 04/29/24 13:01
Alkaline Phosphatase 50 U/L (38-126) 04/29/24 13:01
Lipase 38 U/L (23-300) 05/05/24 05:06
Vital Signs and I&O:
Vital Signs
Temp Pulse Resp BP Pulse Ox
98.5 F 85 16 143/82 96
05/05/24 07:50 05/05/24 07:50 05/05/24 07:50 05/05/24 07:50 05/05/24 07:50
I&O
05/04/24 05/05/24 05/06/24
06:59 06:59 06:59
Intake Total 1180 / 1180 900 / 900
Output Total 1300 / 1300 1400 / 1400
Balance -120 / -120 -500 / -500
Physical Exam
Physical Exam
HEENT: Anicteric and Moist mucous membranes
Cardiology: Normal Sinus Rhythm
Pulmonary: Clear
GI: Soft, Non Distended and Non Tender
Neuro: Non Focal
[2024-05-05] MEDS: LIDOCAINE 4% PATCH 1 PATCH TOPICAL (08:26)
[2024-05-05] MEDS: MAGNESIUM OXIDE 500 MG PO (08:26)
[2024-05-05] MEDS: CYMBALTA DELAYED RELEASE 30 MG PO (08:26)
[2024-05-05] MEDS: PROTONIX 40 MG PO (08:26)
[2024-05-05] MEDS: OSCAL CAL 500 1000 MG PO ×3 (08:27→17:41)
[2024-05-05] MEDS: DESENEX/MITRAZOL/ZEASORB 1 APPLIC TOPICAL ×2 (08:31→20:37)
--- NOTE | 2024-05-05 09:07 | W.PN.HOSP.TC ---
Today's Communication/Plan
-
Started low-dose of Bentyl 10 mg qid PRN and Imodium for patient's abdominal/gastrointestinal symptoms
Transitioned to PO antibiotics
Plan for discharge tomorrow as long as symptoms show improvement
Assessment / Plan
Assessment / Plan
Physical Exam
General: Well Developed, Well Nourished and No Apparent Distress
HEENT: Normocephalic and Atraumatic
Respiratory: Clear to Auscultation Bilaterally
Cardiac: Regular Rhythm and S1/S2
GI: Soft, Nondistended and Normal Bowel Sounds. Mildly tender on the epigastric and right side.
Musculoskeletal: No Cyanosis and No Edema
Neuro: Awake
Psych: Calm
Assessment/Plan
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
diarrhea for the past several days.
Labs unremarkable. Urinalysis indicating infection. CT abdomen pelvis shows new stranding/inflammation surrounding the kidneys and neobladder of the right lower quadrant concerning for UTI. There is new mild bilateral hydronephrosis. New mild
free fluid in the right pelvis which may be reactive, bladder leak cannot be completely excluded.
CT A/P
IMPRESSION: New stranding/inflammation surrounding the kidneys and neobladder of the right lower quadrant concerning for UTI. Clinical and laboratory correlation recommended.
New mild bilateral hydronephrosis.
New mild free fluid in the right pelvis. This may be reactive. A bladder leak cannot be completely excluded. This does not have the appearance of an abscess.
Visualized appendix within normal limits. The tip is not visualized and is adjacent to the above mentioned processes. Acute appendicitis cannot be completely excluded.
Stable simple left renal cyst. Stable.
Too small to characterize hypodense left renal lesion likely a benign cyst. Stable
REPEAT CT A/P
IMPRESSION: Interval improvement in suspected. Previous infection of the ileal conduit and kidneys.
No bowel wall thickening. No evidence of bowel obstruction.
Otherwise relatively stable chronic findings, as described.
# Abdominal pain likely from UTI/Pyelonephritis; new mild bilateral hydronephrosis
-CT results above
-Antibiotics now transitioned to Cefdinir (continue antibiotics through 05/13/23)
-Urology consult appreciated
-s/p catheter placement in stoma on 04/30. Per Urology, conduit widely patent - possible mild distal obstruction? - maintain catheter in stoma at discharge
-Maintain Valladares in ostomy at discharge, can be removed in about 1 week after UTI treated
#Diarrhea/nausea, possibly from antibiotics, UTI/pyelonephritis
#Abdominal distention after eating on 05/02/24
#Abdominal fullness and difficulty eating x months, also has GERD with belching
-Patient's nausea, epigastric fullness and diarrhea have returned on 05/04/24 while eating low residue diet -- discussed with GI today who will review case -- CT with contrast cannot be done due to patient's contrast dye allergy
-C. diff, Norovirus and stool cultures all negative
-Likely at least partly 2/2 Pyelonephritis
-Diarrhea and nausea could also be from antibiotics
-Diet was decreased back to clears given nausea, now advanced to low residue
-Continue his LOG HAULER Pepcid, was not getting here initially
-continue LOG HAULER Protonix
-Repeat CT reassuring, no bowel wall thickening or significant dilatation
-Started low-dose of Bentyl 10 mg qid PRN and Imodium is also okay -- discussed this with gastroenterology
# Hyponatremia - RESOLVED - secondary to metastatic disease
-hold LOG HAULER HCTZ
-Continue to monitor
#QUINTIN - RESOLVED
-creatinine up 04/30; resolved after 04/30/24
-s/p catheter placement in stoma by Urology 04/30
#Hypomagnesemia - RESOLVED
-Started oral magnesium
-IV Magnesium given on 05/03/24
-Improved
#Hypocalcemia
-Increased home Calcium dose
-Correct low magnesium
#Benign Hypertension
-Hold HCTZ due to hyponatremia
-continue to hold Lisinopril - monitor BP's
#GERD
-PPI continued
#Metastatic Prostate Cancer with Chronic Pain
-LOG HAULER Xtandi
-buprenorphine continued
-Lidocaine continued
-resume LOG HAULER norco
#Urostomy Status
- Stable.� Clear urine in device.
- Routine ostomy care.
DVT Prophylaxis: Lovenox subq (was on Heparin subq earlier on during the hospitalization)
Code Status:�Full Code
Anticipated Discharge: 24 - 48 hours
Subjective/Interval History
-
Date of Service: May 05, 2024
Patient was seen and examined. He reported continued symptoms of fullness after eating and diarrhea.
Objective Data
-
Labs:
Laboratory Results
05/05/24
05:06
Sodium 135
Potassium 4.0
Chloride 100
Carbon Dioxide 25
BUN 17
Creatinine 1.0
Glucose 110 H
Calcium 7.4 L
Vital Signs:
Vital Signs
Temp Pulse Resp BP Pulse Ox
98.5 F 85 16 143/82 96
05/05/24 07:50 05/05/24 07:50 05/05/24 07:50 05/05/24 07:50 05/05/24 07:50
I&O
05/04/24 05/05/24 05/06/24
06:59 06:59 06:59
Intake Total 1180 / 1180 900 / 900
Output Total 1300 / 1300 1400 / 1400
Balance -120 / -120 -500 / -500
[2024-05-05] MEDS: OMNIPAQUE 50 ML PO (09:17)
--- NOTE | 2024-05-05 09:49 | CM ---
Patient seen at bedside with
CT scan today
[facility]-accepted
PLAN: home with [facility] when medically stable
[2024-05-05] MEDS: DILAUDID 0.5 MG IV (11:34)
--- NOTE | 2024-05-05 13:41 | W.PN.UPDATE ---
Update Note
Progress Note Update
BRIEF GI NOTE:
Repeat CT Abd/pelvis 05/05 with improvement of prior perinephric stranding and stable thickening of fascia from prior pyelonephritis. Remains on IV antibiotics. Otherwise, no other bowel wall thickening or evidence of bowel obstruction. No other
biliary ductal dilatation or focal abnormality of the pancreas. Additional chronic findings as noted on CT. Suspect previous loose stools and abd discomfort/nausea related to his prior infection from pyleo. Rest of prior work-up has also been
further reassuring. Favor ongoing IV abx as per primary team and suspect abx-associated diarrhea. Could consider trial of low-dose bentyl 10 mg qid for spasms which may also help with his looser stools. Defer to primary team but would consider if no
improvement. Agree with ongoing supportive care.
Discussed with primary internal medicine team. GI team will sign-off, please recontact with questions/concerns.
[2024-05-05 15:14] LABS: Albumin 3.3 g/dl (3.5-5.0)
[2024-05-05 15:42] VITALS: BP 123/69
[2024-05-05] MEDS: PEPCID 20 MG PO (15:56)
[2024-05-05] MEDS: IMODIUM 2 MG PO (16:47)
[2024-05-05] MEDS: LOVENOX 40 MG SC (17:06)
[2024-05-05] MEDS: NON-FORMULARY ITEM 15 MCG TRANSDERM (17:41)
[2024-05-05] MEDS: OMNICEF 300 MG PO (20:32)
[2024-05-05 23:22] VITALS: BP 117/60
[2024-05-06] MEDS: OSCAL CAL 500 1000 MG PO ×2 (00:54→09:08)
[2024-05-06] MEDS: PEPCID 20 MG PO ×2 (00:54→15:38)
[2024-05-06] MEDS: ROXICODONE 5 MG PO (01:01)
[2024-05-06] MEDS: DILAUDID 0.5 MG IV (06:19)
[2024-05-06] MEDS: ZOFRAN 4 MG IV (06:29)
[2024-05-06 07:12] VITALS: BP 101/67
--- NOTE | 2024-05-06 07:17 | W.PN.HOSP.TC ---
Today's Communication/Plan
-
Discharge today
Assessment / Plan
Assessment / Plan
Physical Exam
General: Well Developed, Well Nourished and No Apparent Distress
HEENT: Normocephalic and Atraumatic
Respiratory: Clear to Auscultation Bilaterally
Cardiac: Regular Rhythm and S1/S2
GI: Soft, Nondistended and Normal Bowel Sounds. Mildly tender on the epigastric and right side.
Musculoskeletal: No Cyanosis and No Edema
Neuro: Awake
Psych: Calm
Assessment/Plan
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
diarrhea for the past several days.
Labs unremarkable. Urinalysis indicating infection. CT abdomen pelvis shows new stranding/inflammation surrounding the kidneys and neobladder of the right lower quadrant concerning for UTI. There is new mild bilateral hydronephrosis. New mild
free fluid in the right pelvis which may be reactive, bladder leak cannot be completely excluded.
CT A/P
IMPRESSION: New stranding/inflammation surrounding the kidneys and neobladder of the right lower quadrant concerning for UTI. Clinical and laboratory correlation recommended.
New mild bilateral hydronephrosis.
New mild free fluid in the right pelvis. This may be reactive. A bladder leak cannot be completely excluded. This does not have the appearance of an abscess.
Visualized appendix within normal limits. The tip is not visualized and is adjacent to the above mentioned processes. Acute appendicitis cannot be completely excluded.
Stable simple left renal cyst. Stable.
Too small to characterize hypodense left renal lesion likely a benign cyst. Stable
REPEAT CT A/P
IMPRESSION: Interval improvement in suspected. Previous infection of the ileal conduit and kidneys.
No bowel wall thickening. No evidence of bowel obstruction.
Otherwise relatively stable chronic findings, as described.
# Abdominal pain likely from UTI/Pyelonephritis; new mild bilateral hydronephrosis
-CT results above
-Antibiotics now transitioned to Cefdinir (continue antibiotics through 05/13/23)
-Urology consult appreciated
-s/p catheter placement in stoma on 04/30. Per Urology, conduit widely patent - possible mild distal obstruction? - maintain catheter in stoma at discharge
-Maintain Valladares in ostomy at discharge, can be removed in about 1 week after UTI treated
#Diarrhea/nausea, possibly from antibiotics, UTI/pyelonephritis
#Abdominal distention after eating on 05/02/24
#Abdominal fullness and difficulty eating x months, also has GERD with belching
-Patient's nausea, epigastric fullness and diarrhea have returned on 05/04/24 while eating low residue diet -- discussed with GI today who will review case -- CT with contrast cannot be done due to patient's contrast dye allergy
-C. diff, Norovirus and stool cultures all negative
-Likely at least partly 2/2 Pyelonephritis
-Diarrhea and nausea could also be from antibiotics
-Continue his FILTER TENDER Pepcid twice daily, was not getting here initially
-continue FILTER TENDER Protonix daily
-Repeat CT reassuring, no bowel wall thickening or significant dilatation
-Started low-dose of Bentyl 10 mg qid PRN and Imodium is also okay -- discussed this with gastroenterology
-Diet as tolerated with small/frequent meals
# Hyponatremia - RESOLVED - secondary to metastatic disease
-hold FILTER TENDER HCTZ
-Continue to monitor
#QUINTIN - RESOLVED
-creatinine up 04/30; resolved after 04/30/24
-s/p catheter placement in stoma by Urology 04/30
#Hypomagnesemia - RESOLVED
-Started oral magnesium
-IV Magnesium given on 05/03/24 and on 05/06/24
-Improved
#Hypocalcemia
-Corrected low magnesium
-Continue home calcium+Vitamin D3 combination, recheck labs outpatient and follow-up with PCP within 3 to 4 days
#Benign Hypertension
-Hold HCTZ due to hyponatremia
-continue to hold Lisinopril - monitor BP's
#GERD
-PPI continued
#Metastatic Prostate Cancer with Chronic Pain
-FILTER TENDER Xtandi
-buprenorphine continued
-Lidocaine continued
-resume FILTER TENDER norco
#Urostomy Status
- Stable.� Clear urine in device.
- Routine ostomy care.
DVT Prophylaxis: Lovenox subq (was on Heparin subq earlier on during the hospitalization)
Code Status:�Full Code
More than 30 minutes spent in discharge including
Final examination of the patient
Summarizing hospital stay
Instructions for continuing care to all relevant caregivers
Preparation of discharge records, prescriptions, and referral forms
Total time spent (in minutes): 39
Anticipated Discharge: Today
Subjective/Interval History
-
Date of Service: May 06, 2024
Patient was seen and examined. He reported diarrhea is somewhat better with the Imodium, is eating okay.
Objective Data
-
Labs:
Laboratory Results
05/06/24
05:39
Sodium Pending
Potassium Pending
Chloride Pending
Carbon Dioxide Pending
BUN Pending
Creatinine Pending
Glucose Pending
Calcium Pending
Vital Signs:
Vital Signs
Temp Pulse Resp BP Pulse Ox
98.7 F 91 17 117/60 96
05/05/24 23:22 05/05/24 23:22 05/05/24 23:22 05/05/24 23:22 05/06/24 05:30
I&O
05/05/24 05/06/24 05/07/24
06:59 06:59 06:59
Intake Total 900 / 900 1840 / 1840
Output Total 1400 / 1400 1430 / 1430
Balance -500 / -500 410 / 410
[2024-05-06 07:27] LABS: Albumin 3.2 g/dl (3.5-5.0); Blood Urea Nitrogen 17 mg/dl (9-20); Calcium 7.4 mg/dl (8.4-10.2); Carbon Dioxide 25 mmol/L (22-30); Chloride 99 mmol/L (98-107); Estimated Creatinine Clearance 54 ml/min; Glucose 107 mg/dl (70-99); Magnesium 1.7 mg/dl (1.6-2.3); Potassium 4.1 mmol/L (3.5-5.1); Sodium 135 mmol/L (135-145); eGFR > 60.00
[2024-05-06] MEDS: CYMBALTA DELAYED RELEASE 30 MG PO (09:09)
[2024-05-06] MEDS: PROTONIX 40 MG PO (09:09)
[2024-05-06] MEDS: MAGNESIUM OXIDE 500 MG PO (09:09)
[2024-05-06] MEDS: LIDOCAINE 4% PATCH 1 PATCH TOPICAL (09:09)
[2024-05-06] MEDS: OMNICEF 300 MG PO (09:09)
[2024-05-06] MEDS: DESENEX/MITRAZOL/ZEASORB 1 APPLIC TOPICAL (09:10)
[2024-05-06 12:39] VITALS: BMI 28.4
[2024-05-06] MEDS: MAGNESIUM SULFATE 50 IV (12:47)
[2024-05-06 12:49] VITALS: BP 129/72; PULSE 96; O2SAT 95
--- NOTE | 2024-05-06 13:56 | W.DCSUMMARY ---
Discharge Summary
Discharge Data
Date of Admission: 04/29/24
Date of Discharge: 05/06/24
Total time spent discharging patient (in min): 39
-
Pending Results: No
Hospital Course
88-year-old male with past medical history of metastatic prostate cancer status post neobladder formation with urostomy, metastasis to bone undergoing radiation, hypertension and GERD, presented with abdominal pain with radiation to the back,
nausea, dry heaving and diarrhea for the several days prior to presentation. Patient's urinalysis suggested infection. CT Abdomen Pelvis showed new stranding/inflammation surrounding the kidneys and neobladder of the right lower quadrant concerning
for urinary tract infection, new mild bilateral hydronephrosis and new mild free fluid in the right pelvis which may be reactive, bladder leak cannot be completely excluded. Patient's nausea and diarrhea was thought to be likely secondary to recent
radiation as well as current infection. Patient was started on intravenous fluids and started on broad-spectrum antibiotics for urinary tract infection. Urology was consulted. Patient's Hydrochlorothiazide was held due to his hyponatremia. Urology
replaced and repositioned urostomy appliance with a Valladares catheter in the stoma to maximize drainage; there was a small right pelvic fluid collection, possible urine leak but low suspicion for abscess; urology recommended maintaining catheter in
stoma at discharge, to be removed outpatient; he also mentioned follow-up with Dr. Franks. Patient had acute kidney injury which resolved with intravenous fluids. Patient's urine culture grew pansensitive E. coli and antibiotics were narrowed.
Patient reported abdominal fullness and diarrhea after eating. Pepcid and Protonix were resumed. It was thought that his urinary tract infection and antibiotic side effects could at least partly be contributing to his diarrhea. Since his symptoms
persisted, gastroenterology was consulted, CT Abdomen Pelvis with oral contrast was performed and showed improvement of prior perinephric stranding and stable thickening of fascia from prior pyelonephritis, no other bowel wall thickening or evidence
of bowel obstruction, no other biliary ductal dilatation or focal abnormality of the pancreas and additional chronic findings as noted on CT. It was suspected that his previous loose stools and abdominal discomfort/nausea were related to his prior
infection from pyelonephritis.
Patient's calcium and magnesium were replaced and he would need further close follow-up outpatient to ensure his electrolyte levels including calcium and magnesium were okay. Patient was stable for discharge with close outpatient follow-up.
Discharge Plan
-
Patient Disposition: Home with Home Care
Discharge Diagnosis/Procedures: Abdominal pain, nausea likely from Pyelonephritis
Diarrhea/nausea, possibly from antibiotics, UTI/pyelonephritis
Abdominal distention after eating on 05/02/24
Abdominal fullness and difficulty eating for months, also GERD with belching
Hyponatremia - RESOLVED - secondary to metastatic disease
Acute Kidney Injury - RESOLVED
Hypomagnesemia - RESOLVED
Hypocalcemia
Benign Hypertension
Gastroesophageal Reflux Disease
Metastatic Prostate Cancer with Chronic Pain status post pelvic radiation with subsequent complications and eventual partial cystectomy and ileal conduit urinary diversion
-Undergoing systemic therapy and radiation for bone metastases
Urostomy Status
New mild bilateral hydronephrosis
Renal Cysts
Mild free fluid in the right pelvis on CT Imaging
CT Abdomen Pelvis
'IMPRESSION: Interval improvement in suspected. Previous infection of the ileal conduit and kidneys. No bowel wall thickening. No evidence of bowel obstruction. Otherwise relatively stable chronic findings, as described.'
Condition: Fair
Diet: Low Sodium, 2 Gram Sodium and Low Residue
Additional Diets: Small frequent meals. Ensure protein shake supplementation twice per day.
Activity: As tolerated
Driving Restrictions: No driving
Blood Work: Check CBC, BMP, Calcium, Magnesium and Albumin as we discussed
Other Services: [facility]
Activity Restrictions/Additional Instructions:
It is very important for you to continue your home Calcium Vitamin D3 combination medication and recheck your BMP, Calcium, Magnesium and Albumin outpatient as we discussed. Follow-up with your primary care physician latest by May 09,
2024, regarding this.
If you feel worse, develop fever, worsening abdominal pain, chills, malaise, etc, please return to the emergency room right away.
Instructions: Cefdinir, Dicyclomine, Loperamide
Referrals:
Jamila Ruiz MD [Family Provider] - in less than 1 week
Maximino Franks MD [Active] - in less than 1 week
Ulises De La Vega DO [Active] - in two to three weeks (Hospital follow-up for diarrhea)
Additional Discharge Medication Instructions: It is very important for you to continue your home Calcium Vitamin D3 combination medication and recheck your BMP, Calcium, Magnesium and Albumin outpatient as we discussed. Follow-up with your primary
care physician within 3 to 4 days is essential.
As needed Dicyclomine and as needed Loperamide are new medications.
Magnesium oxide is a new medications.
Lisinopril held until you have your blood pressure rechecked with your primary care physician.
Hydrochlorothiazide has been stopped.
Prescriptions:
New
dicyclomine 10 mg Capsule
10 mg PO QIDPRN PRN (Reason: Abdominal Fullness/Pain/Abdominal Spasms) Qty: 20 0RF
loperamide 2 mg Capsule
2 mg PO [id number] PRN (Reason: diarrhea) Qty: 20 0RF
magnesium oxide 500 mg magnesium Tablet
500 mg PO DAILY Qty: 30 0RF
cefdinir 300 mg Capsule
300 mg PO Q12 Qty: 15 0RF
Continued
Centrum Silver 1 EACH tablet
1 ea PO QPM
polyethylene glycol 3350 [Miralax] 17 gram Powder In Packet
17 g PO DAILY
calcium carbonate [Calcium 600] 600 mg calcium (1,500 mg) Tablet
600 mg PO BID
buprenorphine 10 mcg/hour patch weekly
15 mcg transdermal TH
Patient Comments:
11/07/2022: last filled 10/17/22, 4 patches for 28 days from [facility]
Stool Softener 50 mg Capsule
100 mg PO DAILY
Rx Instructions:
take 50 mg by mouth 2 times daily as needed for constipation
pantoprazole [Protonix] 40 mg Tablet,Delayed Release (Dr/Ec)
40 mg PO DAILY
lidocaine [Lidocaine Pain Relief] 4 % Adhesive Patch,Medicated
1 patch TOPICAL BID PRN (Reason: pain)
Rx Instructions:
5%
hydrocodone-acetaminophen 10-325 mg Tablet
1 tab PO Q6H PRN (Reason: pain)
duloxetine capsule
30 mg PO DAILY
famotidine 20 mg Tablet
20 mg PO BID
Rx Instructions:
Patient states he takes it at 3pm and 10pm
Xtandi 40 mg Tablet
120 mg PO DAILY
Rx Instructions:
Take 3 tablets (120mg total) by mouth daily.
Held
lisinopril 10 mg Tablet
10 mg PO DAILY Qty: 30 0RF
Hold Instructions: Resume on 05/13/24. Discuss with your primary care physician whether or not you should resume this medication, and if so, when to resume it.
Discontinued
acetaminophen 325 mg Tablet
650 mg PO Q4HPRN PRN (Reason: Mild Pain / Temp > 101) Qty: 0 0RF
hydrochlorothiazide 50 mg Tablet
50 mg PO DAILY
Discharge Orders:
Discharge Patient (As Directed); Ordered 05/06/24
Ordered By: Pawel Gray
Discharge Date and Time
Discharge Date/Time: 05/06/24 16:55
Print Language: ISRAELI
--- NOTE | 2024-05-06 14:16 | CM ---
Met with patient.
Discharged today with [facility]
IMM explained & signed. In chart
PLAN: Home with [facility]
to transport
[2024-05-06 15:34] VITALS: BP 120/74
[2024-05-06 16:34] VITALS: BP 120/74
== END 2024-05-06 16:55 | disposition home health service (06) | DRG 690 ==
LOC: 2 NORTH 19:42
PROVIDERS: Emergency Medicine; Registered Nurse; Student in an Organized Health Care Education/Training Program; ADMITTING PHYSICIAN Hospitalist; ATTENDING PHYSICIAN Hospitalist; CONSULT PHYSICIAN Urology; EMERGENCY PHYSICIAN Student in an Organized Health Care Education/Training Program; FAMILY PHYSICIAN Family Medicine; OTHER PHYSICIAN Internal Medicine Gastroenterology
DX: N13.6 Pyonephrosis (principal); C79.51 Secondary malignant neoplasm of bone; K52.1 Toxic gastroenteritis and colitis; E87.1 Hypo-osmolality and hyponatremia; C61 Malignant neoplasm of prostate; I10 Essential (primary) hypertension; E11.9 Type 2 diabetes mellitus without complications; K59.00 Constipation, unspecified; K21.9 Gastro-esophageal reflux disease without esophagitis; N28.1 Cyst of kidney, acquired; N17.9 Acute kidney failure, unspecified; E83.42 Hypomagnesemia; E83.51 Hypocalcemia; G89.3 Neoplasm related pain (acute) (chronic); Z92.3 Personal history of irradiation; Z93.6 Other artificial openings of urinary tract status; Z90.79 Acquired absence of other genital organ(s); Z85.51 Personal history of malignant neoplasm of bladder; Z85.828 Personal history of other malignant neoplasm of skin; E78.5 Hyperlipidemia, unspecified; M19.90 Unspecified osteoarthritis, unspecified site; M48.00 Spinal stenosis, site unspecified; B96.20 Unspecified Escherichia coli [E. coli] as the cause of diseases classified elsewhere; Z79.899 Other long term (current) drug therapy; F41.9 Anxiety disorder, unspecified; Z86.0100 Personal history of colon polyps, unspecified; Z82.49 Family history of ischemic heart disease and other diseases of the circulatory system
CPT/HCPCS: 74019; 74176; 80048; 80053; 81003; 81015; 82040; 82570; 83605; 83690; 83735; 84300; 84484; 85025; 85027; 87045; 87046; 87077; 87086; 87186; 87324; 87427; 87449; 87798; 93005; 96361; 96374; 96375; 96376; 97162; 97166; 97530; 99285

== ENCOUNTER → 2024-05-09 13:29 | Outpatient (REF) | payer OTHER, SELFPAY ==
[2024-05-09 14:17] LABS: % Basophils 0.4 % (0-2); % Eosinophils 0.4 % (0-6); % Immature Granulocytes 2.3 % (0-0.5); % Lymphocytes 13.8 % (20.5-51.1); % Monocytes 14.1 % (1.7-9.3); Absolute Immature Granulocytes 0.1 10^3/uL (0-0.05); Absolute Lymphocytes 0.8 10^3/uL (1.2-3.4); Absolute Monocytes 0.8 10^3/uL (0.1-0.6); Absolute Neutrophils 3.9 10^3/uL (1.4-6.5); Hematocrit 33.4 % (39.0-52.0); Hemoglobin 11.3 g/dL (13.0-18.0); Mean Corp Hgb Conc. 33.8 g/dL (33.0-37.0); Mean Corpuscular Hgb 30.1 pg (27.0-31.0); Mean Corpuscular Volume 88.8 fL (80.0-94.0); Mean Platelet Volume 9.5 fL (7.4-10.4); Nucleated Red Blood Cells % 0 % (-); Platelet Count 290 10^3/uL (130-400); Red Blood Cell Count 3.76 10^6/uL (4.70-6.10); Red Cell Dist. Width 13.5 % (11.5-14.5); White Blood Cell Count 5.7 10^3/uL (4.8-10.8)
[2024-05-09 15:08] LABS: Albumin 4.5 g/dl (3.5-5.0); Blood Urea Nitrogen 22 mg/dl (9-20); Calcium 8.1 mg/dl (8.4-10.2); Carbon Dioxide 27 mmol/L (22-30); Chloride 97 mmol/L (98-107); Glucose 112 mg/dl (70-99); Magnesium 2.2 mg/dl (1.6-2.3); Sodium 136 mmol/L (135-145); eGFR > 60.00
== END ==
LOC: REG 13:29
PROVIDERS: ATTENDING PHYSICIAN Hospitalist; FAMILY PHYSICIAN Family Medicine
DX: N39.0 Urinary tract infection, site not specified (principal)
CPT/HCPCS: 36415; 80048; 82040; 83735; 85025

== ENCOUNTER 2024-05-30 00:48 | Observation (INO) | payer OTHER, SELFPAY ==
[2024-05-29] VITALS (7 sets, daily range): BP systolic 103–142; BP diastolic 66–82; BMI 29.4
--- NOTE | 2024-05-29 19:29 | ED.MUSCINJ ---
HPI-Injury
General
Chief Complaint: Fall
Source: patient
Exam Limitations: none
Time Seen by Provider: 05/29/24 18:50
History of Present Illness-Injury
Initial Injury comments:
88-year-old male with history of bone cancer sees Aristeo Barrett for this takes hydrocodone for his pain presents after a mechanical fall. Lost his balance and fell backwards last evening. He complains mainly of left shoulder and upper back pain. He
is not anticoagulated. He denies significant headache. No known loss of conscious. He is right-hand dominant. No other complaints at this time
Past History
Past History
ED Past Medical History: Cancer (Metastatic prostate CA), HTN and Valvular disease
ED Past Surgical History: Urological and Other
Social History
Tobacco: Non-smoker
Alcohol: None
Drug: None
Personal:
Living: with family
Employment: Retired
Family History
Family History: Diabetes and CAD
Phy Exam
Physical Exam
Physical Exam:
General: Well-appearing male no acute respiratory distress
HEENT: Normocephalic atraumatic
Heart: Regular rate and rhythm no murmurs
Lungs: Clear no wheeze
Musculoskeletal exam: The patient is tender diffusely about the left shoulder without significant deformity. Mild tenderness about the lower cervical spine.
Neurologic exam: Alert and oriented
Injury Course
Orders/Labs/Results
Orders:
Orders
05/29/24 17:38
CT Cervical Spine W/o Iv Contr Urgent
Comment:
Reason For Exam: fall with head strike
CT Head W/o Iv Contrast Urgent
Comment:
Reason For Exam: fall with head strike
Shoulder, Left 2 View CR [CR Shoulder - Left Min 2 View*] Urgent
Comment:
Reason For Exam: fall, shoulder pain
05/29/24 19:21
HYDROmorphone [Dilaudid] 0.5 mg IV NOW STA
05/29/24 20:31
Ketorolac [Toradol] 15 mg IV NOW STA
05/29/24 22:16
Complete Blood Count/With Diff Urgent
Comprehensive Metabolic Panel Urgent
Manual Differential Urgent
Abnormal Lab Results
05/29/24
22:16
RBC 4.26 L 10^6/uL
(4.70-6.10)
Hgb 12.6 L g/dL
(13.0-18.0)
Hct 37.6 L %
(39.0-52.0)
Abs Neuts (Manual) 6.8 H 10^3/uL
(1.4-6.5)
Lymphocytes (Manual) 6 L %
(20-51)
Monocytes (Manual) 20 H %
(2-9)
Sodium 132 L mmol/L
(135-145)
Chloride 96 L mmol/L
(98-107)
BUN 26 H mg/dl
(9-20)
Glucose 128 H mg/dl
(70-99)
05/29/24 22:16
05/29/24 22:16
MDM/Problems Addressed
Differential Diagnosis Includes:
Patient with mechanical fall has mainly left shoulder pain. X-rays left shoulder pending. Ordered CT head as well
*Critical Care Note
Total Time (30-74mins, 75-104mins- exclusive of procedures): Not Applicable
Update Note
Update Note:
Patient reevaluated received no relief with Dilaudid but did receive a little bit of relief with Toradol. Daughter is now in the room, 1 of which is a physical therapist. Family endorses a steady decline since his prior admission a month ago for a
UTI. He is now walker dependent but today he was unable to ambulate secondary to his shoulder pain and walker dependency. X-rays of the left shoulder were negative for fracture CT of the head and cervical spine negative for acute traumatic injury.
Long discussion was had with patient and family. Family uncomfortable with discharge. Will keep in hospital for physical therapy evaluation of potential placement.
ED Attending Note
-
Portions of this chart may have been created with voice recognition software.� Occasional wrong word or��sound alike� substitutions may have occurred due to the inherent limitations of voice recognition software.
Discharge Plan
Departure
Patient Disposition: Admit
Date of Disposition: 05/29/24
Time of Disposition: :27
Presentation/result/management discussed w/ accepting MD/DO: Hospitalist
Discharge Problem:
Fall
Prescriptions:
No Action
Centrum Silver 1 EACH tablet
1 ea PO QPM
calcium carbonate [Calcium 600] 600 mg calcium (1,500 mg) Tablet
600 mg PO BID
buprenorphine 10 mcg/hour patch weekly
15 mcg transdermal TH
Patient Comments:
11/07/2022: last filled 10/17/22, 4 patches for 28 days from [facility]
pantoprazole [Protonix] 40 mg Tablet,Delayed Release (Dr/Ec)
40 mg PO DAILY
lidocaine [Lidocaine Pain Relief] 4 % Adhesive Patch,Medicated
1 patch TOPICAL BID PRN (Reason: pain)
Rx Instructions:
5%
hydrocodone-acetaminophen 10-325 mg Tablet
1 tab PO Q6H PRN (Reason: pain)
duloxetine capsule
30 mg PO DAILY
famotidine 20 mg Tablet
20 mg PO BID
Rx Instructions:
Patient states he takes it at 3pm and 10pm
Xtandi 40 mg Tablet
120 mg PO DAILY
Rx Instructions:
Take 3 tablets (120mg total) by mouth daily.
dicyclomine 10 mg Capsule
10 mg PO QIDPRN PRN (Reason: Abdominal Fullness/Pain/Abdominal Spasms) Qty: 20 0RF
loperamide 2 mg Capsule
2 mg PO [id number] PRN (Reason: diarrhea) Qty: 20 0RF
Referrals:
Jamila Ruiz MD [Family Provider] -
Interventions
Interventions:
*Risk Screen - Suicide Last Done: 05/29/24 18:47
*General Assessment Last Done: 05/29/24 18:47
*Neglect/Abuse Screening Last Done: 05/29/24 18:47
ED- Fall Risk Assessment Last Done: 05/29/24 18:47
*ED COVID-19 Vaccine History Last Done: 05/29/24 18:47
ED-Musculoskeletal Assessment Last Done: 05/29/24 18:47
ED- Neurological Assessment Last Done: 05/29/24 18:47
ED-Skin Assessment Last Done: 05/29/24 18:47
Discharge Date and Time
Print Language: SCOTTISH
[2024-05-29] MEDS: DILAUDID 0.5 MG IV (19:34)
[2024-05-29] MEDS: TORADOL 15 MG IV (20:36)
[2024-05-29 22:39] LABS: ALT (SGPT) 17 U/L (0-50); AST (SGOT) 25 U/L (17-59); Albumin 4.6 g/dl (3.5-5.0); Alkaline Phosphatase 59 U/L (38-126); Blood Urea Nitrogen 26 mg/dl (9-20); Calcium 8.9 mg/dl (8.4-10.2); Carbon Dioxide 22 mmol/L (22-30); Chloride 96 mmol/L (98-107); Estimated Creatinine Clearance 70 ml/min; Glucose 128 mg/dl (70-99); Potassium 4.6 mmol/L (3.5-5.1); Sodium 132 mmol/L (135-145); Total Bilirubin 1.2 mg/dl (0.2-1.3); Total Protein 7.2 g/dl (6.3-8.2); eGFR > 60.00
[2024-05-29 22:42] LABS: Hematocrit 37.6 % (39.0-52.0); Hemoglobin 12.6 g/dL (13.0-18.0); Mean Corp Hgb Conc. 33.5 g/dL (33.0-37.0); Mean Corpuscular Hgb 29.6 pg (27.0-31.0); Mean Corpuscular Volume 88.3 fL (80.0-94.0); Mean Platelet Volume 10.2 fL (7.4-10.4); Platelet Count 185 10^3/uL (130-400); Red Blood Cell Count 4.26 10^6/uL (4.70-6.10); Red Cell Dist. Width 14.5 % (11.5-14.5); White Blood Cell Count 9.3 10^3/uL (4.8-10.8)
[2024-05-29 22:48] LABS: Absolute Neutrophils -Man Diff 6.8 10^3/uL (1.4-6.5); Band Neutrophils 2 % (0-3); Lymphocytes 6 % (20-51); Monocytes 20 % (2-9); Normal RBC Morphology Yes; Platelets Checked Yes; Segmented Neutrophils 72 % (42-75); Total Cells Counted 100
--- NOTE | 2024-05-29 22:54 | EDRN ---
Patient on drug from [facility] Xtandi 40mg which we do not carry, concerned bc medication costs $1300. Bottle of medication handed off to Pharmacist who will keep medication in the pharmacy during stay.
[2024-05-30] VITALS (9 sets, daily range): BP systolic 101–131; BP diastolic 54–73; PULSE 84–101; O2SAT 95–97
--- NOTE | 2024-05-30 00:35 | HPS.HSE ---
Family Physician
-
Family Physician: Jamila Ruiz MD
Chief Complaint
-
Fall at Home, Shoulder Pain
History of Present Illness
Patient is an 88y M with PMH significant for metastatic prostate cancer and chronic pain who presents to ED complaining of fall at home yesterday and persistent / worsening L shoulder pain. Patient was hospitalized at 04/29 - 05/06 secondary to
pyelonephritis. Family states that he has had a general functional decline since that time. Yesterday, he lost his balance and fell - landing flat on his back on the concrete basement floor. He has noted pain in both shoulders since that time - L
> > R. He denies striking his head or any LOC. He was able to get up unassisted. He states that he woke today and the pain in his L shoulder was significantly worse. He has been very limited in mobility today - unable to utilize his walker due to
L shoulder discomfort.
Patient denies any fevers / chills, cough, N/V/D, etc.
Medical History
Past Medical History
Past Medical History: Reports Other
Additional Past Medical History:
Hypertension
Hyperlipidemia
Osteoarthritis
GERD
Heart murmur
Metastatic Prostate cancer
Chronic pain due to neoplasm
Low back pain
Pneumonia
Skin cancer
Lyme disease
Past Surgical History: Reports Other
Additional Past Surgical History:
Partial cystectomy with a loop diversion
Lump on the left testicle removed
Left ear excision of skin cancer
Hernia repair
Aba
Bilateral cataract excision
Social History
Tobacco: Non-smoker
Alcohol: None
Drug: None
Personal:
Living: With Family
Family History
Family History: Not pertinent
Allergies / Home Medications
Allergies reflects when Allergies were last updated in [facility].
Home Medications with original date entered in [facility]
Allergy/Medication List:
Allergies
Allergy/AdvReac Type Severity Reaction Status Date / Time
gadobutrol [From Gadavist] Allergy Hives Verified 05/29/24 17:30
surgical glue Allergy Itching Uncoded 05/29/24 17:30
Home Medications
hqpmtpyb-vtl-gsjlo acid 0.4 mg-lycopene 300 mcg-lutein 250 mcg tablet (Centrum Silver) 1 ea PO QPM Supplement 07/16/18
buprenorphine 10 mcg/hour weekly transdermal patch 15 mcg transdermal TH Pain 06/19/22
calcium carbonate (Calcium 600) 600 mg PO BID Supplement 06/19/22
pantoprazole 40 mg tablet,delayed release (Protonix) 40 mg PO DAILY Gastrointestinal Issue 11/07/22
hydrocodone 10 mg-acetaminophen 325 mg tablet 1 tab PO Q6H PRN pain 04/29/24
lidocaine 4 % topical patch (Lidocaine Pain Relief) 1 patch topical BID PRN pain 04/29/24
duloxetine 30 mg PO DAILY Mental Health/Anxiety 04/30/24
enzalutamide 40 mg tablet (Xtandi) 120 mg PO DAILY Antineoplastic Agent, 04/30/24
famotidine 20 mg tablet 20 mg PO BID Gastrointestinal Issue 04/30/24
dicyclomine 10 mg capsule 10 mg PO QIDPRN PRN Abdominal Fullness/Pain/Abdominal Spasms #20 caps 05/06/24
loperamide 2 mg capsule 2 mg PO [id number] PRN diarrhea #20 caps 05/06/24
Review of Systems
-
History Source: Patient
A 12 point ROS was completed and negative except as noted: Yes
Constitutional: Reports Fatigue; Denies Fever or Chills
Respiratory: Denies Cough or Trouble Breathing
Cardiac: Denies Chest Pain or Palpitations
Abdomen/GI: Reports Other (Heartburn / indigestion / frequent belching.); Denies Abdominal Pain, Nausea, Vomiting or Diarrhea
: Reports Other (RLQ urostomy functioning well.); Denies Dysuria
Musculoskeletal: Reports Joint Pain (L shoulder specifically.); Denies Edema
Neurological: Denies Dizzy or Headache
Psych: Denies Depression or Anxiety
Physical Exam
Vital Signs
Vital Signs
Temp Pulse Resp BP Pulse Ox
99.4 F 95 18 122/73 93
05/29/24 17:26 05/30/24 00:00 05/30/24 00:00 05/30/24 00:00 05/30/24 00:00
Physical Exam
General: Other (88y M in mild distress due to pain.)
HEENT: Moist mucous membranes and PERRLA
Respiratory: Clear; No Wheezes, Rales or Rhonchi
Cardiac: S1/S2, Regular Rhythm and Murmur (II/ KECIA)
GI: Soft, Non Distended, Normal Bowel Sounds and Other (Mild, diffuse tenderness. No rebound / guarding.)
Genito-urinary: Other (RLQ urostomy in place with clear yellow urine in device. No bleeding / discharge. Stoma pink / healthy appearing.)
Musculoskeletal: Other (Tenderness / mild edema about the L shoulder. No ecchymosis / skin breakdown / etc. Decreased ROM LUE due to pain.)
Neuro: AO x 3 and Nonfocal/grossly intact
Laboratory Results
-
05/29/24 22:16
05/29/24 22:16
Laboratory Results
Total Bilirubin 1.2 mg/dl (0.2-1.3) 05/29/24 22:16
AST 25 U/L (17-59) 05/29/24 22:16
ALT 17 U/L (0-50) 05/29/24 22:16
Alkaline Phosphatase 59 U/L (38-126) 05/29/24 22:16
Impression/Plan
-
A/P: Patient is an 88y M with PMH significant for metastatic prostate cancer with chronic pain who presents to ED complaining of L shoulder pain s/p fall yesterday and general functional decline.
Fall at Home
Left Shoulder Pain
Ambulatory Dysfunction
- Observe overnight for further evaluation and treatment.
- No prodrome of chest pain, palpitations, dizziness, etc prior to fall.
- X-rays done in the ED show no acute fracture / dislocation.
- Localized swelling / pain likely due to soft tissue injury.
- Supportive care, pain control, PT / OT evaluations.
- CM eval - ? SNF placement prior to return home.
- Follow for any new / worsening symptoms.
Metastatic Prostate Cancer
Chronic Pain secondary to the above
- Continue outpatient pain med regimen.
- Continue Xtandi.
- Follow-up with Oncology after discharge.
Urostomy Status
- Appears to be functioning well at present.
- Monitor for any issues.
- Routine ostomy care.
Dyspepsia / GERD
- Patient complains of fairly consistent reflux / belching / etc.
- Continue current regimen of acid suppression and Bentyl.
- Follow for any new / worsening symptoms.
DVT Prophylaxis: Lovenox
Code Status: Full
[2024-05-30 00:54] LABS: Urine Albumin 3+ (Neg - Trace); Urine Bilirubin Negative (Negative); Urine Character Slightly Cloudy (Clear); Urine Color Yellow; Urine Glucose Negative (Negative); Urine Ketone Negative (Negative); Urine Leukocyte 3+ (Negative); Urine Nitrite Positive (Negative); Urine Occult Blood 3+ (Negative); Urine Urobilinogen Negative (Neg - 1+)
[2024-05-30 01:21] LABS: Urine Triple Phosphate Crystal Seen
[2024-05-30 01:33] LABS: Urine Bacteria Many (Negative); Urine Red Blood Cell 50-60 /HPF (0-2); Urine White Cell 40-50 /HPF (0-5)
[2024-05-30] MEDS: NSS 1000 IV ×2 (02:04→15:00)
[2024-05-30] MEDS: DILAUDID 0.5 MG IV (02:08)
[2024-05-30] MEDS: TORADOL 15 MG IV ×2 (03:36→22:26)
--- NOTE | 2024-05-30 04:01 | PTCARENOTE ---
Pt arrived 0130 via ED stretcher. pt was able to stand and pivot to the bed. VSS. pain 12/14 (see MAR). IVF infusing. pt oriented to room and call mckeon. bed in lowest position and locked.
[2024-05-30 05:37] LABS: Hematocrit 34.6 % (39.0-52.0); Mean Corp Hgb Conc. 34.7 g/dL (33.0-37.0); Mean Corpuscular Hgb 30.1 pg (27.0-31.0); Mean Corpuscular Volume 86.7 fL (80.0-94.0); Mean Platelet Volume 10.5 fL (7.4-10.4); Platelet Count 165 10^3/uL (130-400); Red Blood Cell Count 3.99 10^6/uL (4.70-6.10); Red Cell Dist. Width 14.4 % (11.5-14.5); White Blood Cell Count 9.8 10^3/uL (4.8-10.8)
[2024-05-30 06:20] LABS: Blood Urea Nitrogen 27 mg/dl (9-20); Calcium 8.7 mg/dl (8.4-10.2); Carbon Dioxide 23 mmol/L (22-30); Chloride 98 mmol/L (98-107); Estimated Creatinine Clearance 54 ml/min; Glucose 129 mg/dl (70-99); Potassium 4.5 mmol/L (3.5-5.1); Sodium 132 mmol/L (135-145); eGFR > 60.00
--- NOTE | 2024-05-30 07:55 | W.PN.HOSP.TC ---
Today's Communication/Plan
-
PT/OT
SNF placement
Assessment / Plan
Assessment / Plan
Physical Exam
General: Not in acute distress
HEENT: Moist mucous membranes
Respiratory: Clear to Auscultation Bilaterally
Cardiac: S1/S2, Regular Rhythm and Murmur (II/ KECIA)
GI: Soft, Non Distended, Normal Bowel Sounds and Nontender.
Genito-urinary: Other (RLQ urostomy in place with clear yellow urine in device. No bleeding / discharge. Stoma pink / healthy appearing.)
Musculoskeletal: Other (Tenderness / mild edema about the L shoulder. No ecchymosis / skin breakdown / etc. Decreased ROM LUE due to pain.)
Neuro: AO x 3 and Nonfocal/grossly intact
Assessment/Plan
Patient is an 88y M with PMH significant for metastatic prostate cancer with chronic pain who presents to ED complaining of L shoulder pain s/p fall yesterday and general functional decline.
Fall at Home
Left Shoulder Pain
Ambulatory Dysfunction
- No LOC, and no prodrome of chest pain, palpitations, dizziness, etc prior to fall.
- X-rays done in the ED show no acute fracture / dislocation.
- Localized swelling / pain likely due to soft tissue injury.
- Supportive care, pain control, PT / OT evaluations.
- CM eval - ? SNF placement prior to return home.
- Follow for any new / worsening symptoms.
Metastatic Prostate Cancer
Chronic Pain secondary to the above
- Continue outpatient pain med regimen.
- Continue Xtandi.
- Follow-up with Oncology after discharge.
Urostomy Status
- Appears to be functioning well at present.
- Monitor for any issues.
- Routine ostomy care.
Dyspepsia / GERD
- Patient complains of fairly consistent reflux / belching / etc.
- Continue current regimen of acid suppression and Bentyl.
- Follow for any new / worsening symptoms.
DVT Prophylaxis: Lovenox
Code Status: Full Code
Anticipated Discharge: 24 - 48 hours
Subjective/Interval History
-
Date of Service: May 30, 2024
Patient was seen and examined. He denied any new symptoms or complaints.
Objective Data
-
Labs:
Laboratory Results
05/29/24 05/30/24
22:16 05:04
WBC 9.3 9.8
Hgb 12.6 L 12.0 L
Hct 37.6 L 34.6 L
Plt Count 185 165
Sodium 132 L 132 L
Potassium 4.6 4.5
Chloride 96 L 98
Carbon Dioxide 22 23
BUN 26 H 27 H
Creatinine 0.7 0.9
Glucose 128 H 129 H
Calcium 8.9 8.7
Total Bilirubin 1.2
AST 25
ALT 17
Alkaline Phosphatase 59
Vital Signs:
Vital Signs
Temp Pulse Resp BP Pulse Ox
99.6 F 104 18 131/67 94
05/30/24 01:45 05/30/24 01:45 05/30/24 01:45 05/30/24 01:45 05/30/24 02:27
I&O
05/29/24 05/30/24 05/31/24
06:59 06:59 06:59
Intake Total 320 / 320
Output Total 500 / 500
Balance -180 / -180
--- NOTE | 2024-05-30 08:46 | VNURNOTE ---
Chart reviewed. Patient is current with [facility] nursing, PT, OT. Will continue to follow hospital course and DC plans.
[2024-05-30] MEDS: NON-FORMULARY ITEM 120 MG PO (09:08)
[2024-05-30] MEDS: TYLENOL 1000 MG PO ×3 (09:09→22:22)
[2024-05-30] MEDS: TUMS EX (EXTRA STRENGTH) CHEWABLE TABLET 300 MG PO ×2 (09:10→22:19)
[2024-05-30] MEDS: COLACE 100 MG PO ×2 (09:10→22:23)
[2024-05-30] MEDS: PROTONIX 40 MG PO (09:10)
[2024-05-30] MEDS: CYMBALTA DELAYED RELEASE 30 MG PO (09:12)
--- NOTE | 2024-05-30 11:34 | CM ---
Patient seen at bedside.
IA completed
CM consult completed
Patient resides in a one story home with a flight of stair to enter with spouse. The patient has a rollator for outside home and a cane inside home. Current with [facility], but no SNF.
PT rec SNF
Spoke with patient/ and reviewed options, referrals entered in [facility]port
Will need to obtain ins auth
PCP: Jamila Ruiz
pharmacy: [address] [place].
PLAN: SNF, pending bed availability, will need to obtain ins auth
[2024-05-30] MEDS: PEPCID 20 MG PO ×2 (15:04→22:24)
[2024-05-30] MEDS: LOVENOX 40 MG SC (18:18)
[2024-05-31] MEDS: NSS 1000 IV (04:06)
[2024-05-31 06:00] VITALS: BMI 29.5
[2024-05-31 07:35] VITALS: BP 135/74
[2024-05-31] MEDS: NON-FORMULARY ITEM 120 MG PO (09:04)
[2024-05-31] MEDS: TYLENOL 1000 MG PO ×3 (09:04→21:43)
[2024-05-31] MEDS: PROTONIX 40 MG PO (09:04)
[2024-05-31] MEDS: CYMBALTA DELAYED RELEASE 30 MG PO (09:04)
[2024-05-31] MEDS: COLACE 100 MG PO ×2 (09:04→21:43)
[2024-05-31] MEDS: TUMS EX (EXTRA STRENGTH) CHEWABLE TABLET 300 MG PO (09:04)
[2024-05-31 11:20] VITALS: BP 103/68; BP 139/62; BP 141/73; PULSE 82; PULSE 94; PULSE 97
[2024-05-31 12:00] VITALS: BP 103/68; BP 139/62; BP 141/73; PULSE 82; PULSE 94; PULSE 97
--- NOTE | 2024-05-31 13:59 | W.PN.HOSP.TC ---
Today's Communication/Plan
-
SNF placement pending
Assessment / Plan
Assessment / Plan
Physical Exam
General: Not in acute distress
HEENT: Moist mucous membranes
Respiratory: Clear to Auscultation Bilaterally
Cardiac: S1/S2, Regular Rhythm and Murmur (II/ KECIA)
GI: Soft, Non Distended, Normal Bowel Sounds and Nontender.
Genito-urinary: Other (RLQ urostomy in place with clear yellow urine in device. No bleeding / discharge. Stoma pink / healthy appearing.)
Musculoskeletal: Other (Tenderness / mild edema about the L shoulder. No ecchymosis / skin breakdown / etc. Decreased ROM LUE due to pain.)
Neuro: AO x 3 and Nonfocal/grossly intact
Assessment/Plan
Patient is an 88y M with PMH significant for metastatic prostate cancer with chronic pain who presents to ED complaining of L shoulder pain s/p fall yesterday and general functional decline.
Fall at Home
Left Shoulder Pain
Ambulatory Dysfunction
- No LOC, and no prodrome of chest pain, palpitations, dizziness, etc prior to fall.
- X-rays done in the ED show no acute fracture / dislocation.
- Localized swelling / pain likely due to soft tissue injury.
- Supportive care, pain control, PT / OT evaluations.
- CM eval - ? SNF placement prior to return home.
- Follow for any new / worsening symptoms.
Metastatic Prostate Cancer
Chronic Pain secondary to the above
- Continue outpatient pain med regimen.
- Continue Xtandi.
- Follow-up with Oncology after discharge.
Urostomy Status
- Appears to be functioning well at present.
- Monitor for any issues.
- Routine ostomy care.
Dyspepsia / GERD
- Patient complains of fairly consistent reflux / belching / etc.
- Continue current regimen of acid suppression and Bentyl.
- Follow for any new / worsening symptoms.
DVT Prophylaxis: Lovenox
Code Status: Full Code
Anticipated Discharge: Within 24 hours
Subjective/Interval History
-
Date of Service: May 31, 2024
Patient was seen and examined. He denied any symptoms or complaints.
Objective Data
-
Vital Signs:
Vital Signs
Temp Pulse Resp BP Pulse Ox
98.2 F 82 18 141/73 94
05/31/24 11:20 05/31/24 11:20 05/31/24 11:20 05/31/24 11:20 05/31/24 11:20
I&O
05/30/24 05/31/24 06/01/24
06:59 06:59 06:59
Intake Total 320 / 320 1660 / 1660
Output Total 500 / 500 850 / 850
Balance -180 / -180 810 / 810
--- NOTE | 2024-05-31 14:01 | CM ---
Reviewed the chart notes and spoke with the patient and spouse at the bedside. Patient now considering going home. Per spouse, patient ambulated to the bathroom with rolling walker and appears at baseline. PT to work with the patient on steps as
there are steps to enter the patient's home. CM continues to be available to patient/family and is monitoring medical plan for needs at discharge.
Plan: Hopefully to home with resumption of [facility]/PT vs SNF.
[2024-05-31 15:05] VITALS: BP 152/79; PULSE 97; O2SAT 96
[2024-05-31 15:40] VITALS: BP 143/74
[2024-05-31] MEDS: LOVENOX 40 MG SC (17:00)
[2024-05-31] MEDS: PEPCID 20 MG PO (21:43)
[2024-05-31] MEDS: TUMS EX (EXTRA STRENGTH) CHEWABLE TABLET PO ×2 (21:44)
[2024-05-31 23:24] VITALS: BP 132/86; BP 135/78; BP 176/54; PULSE 86; PULSE 92; PULSE 93
[2024-06-01 05:45] VITALS: BMI 28.9
--- NOTE | 2024-06-01 07:37 | W.PN.HOSP.TC ---
Today's Communication/Plan
-
Discharge today
Assessment / Plan
Assessment / Plan
Physical Exam
General: Not in acute distress
HEENT: Moist mucous membranes
Respiratory: Clear to Auscultation Bilaterally
Cardiac: S1/S2, Regular Rhythm and Murmur (II/ KECIA)
GI: Soft, Non Distended, Normal Bowel Sounds and Nontender.
Genito-urinary: Other (RLQ urostomy in place with clear yellow urine in device. No bleeding / discharge. Stoma pink / healthy appearing.)
Musculoskeletal: Other (Tenderness / mild edema about the L shoulder. No ecchymosis / skin breakdown / etc. Decreased ROM LUE due to pain.)
Neuro: AO x 3 and Nonfocal/grossly intact
Assessment/Plan
Patient is an 88y M with PMH significant for metastatic prostate cancer with chronic pain who presents to ED complaining of L shoulder pain s/p fall yesterday and general functional decline.
Fall at Home
Left Shoulder Pain
Ambulatory Dysfunction
- No LOC, and no prodrome of chest pain, palpitations, dizziness, etc prior to fall.
- X-rays done in the ED show no acute fracture / dislocation.
- Localized swelling / pain likely due to soft tissue injury.
- Supportive care, pain control, PT / OT evaluations.
- CM eval - ? SNF placement prior to return home.
- Follow for any new / worsening symptoms.
Metastatic Prostate Cancer
Chronic Pain secondary to the above
- Continue outpatient pain med regimen.
- Continue Xtandi.
- Follow-up with Oncology after discharge.
Urostomy Status
- Appears to be functioning well at present.
- Monitor for any issues.
- Routine ostomy care.
Dyspepsia / GERD
- Patient complains of fairly consistent reflux / belching / etc.
- Continue current regimen of acid suppression and Bentyl.
- Follow for any new / worsening symptoms.
DVT Prophylaxis: Lovenox
Code Status: Full Code
More than 30 minutes spent in discharge including
Final examination of the patient
Summarizing hospital stay
Instructions for continuing care to all relevant caregivers
Preparation of discharge records, prescriptions, and referral forms
Total time spent (in minutes): 39
Anticipated Discharge: Today
Subjective/Interval History
-
Date of Service: June 01, 2024
Patient was seen and examined. He denied any symptoms or complaints. He is eager to be discharged today.
Objective Data
-
Vital Signs:
Vital Signs
Temp Pulse Resp BP Pulse Ox
99.4 F 86 20 135/78 95
05/31/24 23:24 05/31/24 23:24 05/31/24 23:24 05/31/24 23:24 05/31/24 23:24
I&O
05/31/24 06/01/24 06/02/24
06:59 06:59 06:59
Intake Total 1660 / 1660 1360 / 1360
Output Total 850 / 850 1475 / 1475
Balance 810 / 810 -115 / -115
[2024-06-01 08:30] VITALS: BP 157/93; BP 164/88; BP 165/90; PULSE 76; PULSE 79; PULSE 87
[2024-06-01] MEDS: PROTONIX 40 MG PO (08:35)
[2024-06-01] MEDS: TYLENOL 1000 MG PO (08:35)
[2024-06-01] MEDS: TUMS EX (EXTRA STRENGTH) CHEWABLE TABLET 300 MG PO (08:35)
[2024-06-01] MEDS: CYMBALTA DELAYED RELEASE 30 MG PO (08:35)
[2024-06-01] MEDS: COLACE 100 MG PO (08:35)
[2024-06-01] MEDS: NON-FORMULARY ITEM 120 MG PO (08:35)
--- NOTE | 2024-06-01 09:12 | CM ---
Reviewed the chart notes. Referral sent to [facility]N. Per PT, patient able to navigate steps yesterday afternoon. CM continues to be available to patient/family and is monitoring medical plan for needs at discharge.
Plan: Discharge to home with VN services when medically stable. Patient's spouse will provide transportation home.
[2024-06-01 14:05] VITALS: BP 136/78
== END 2024-06-01 14:32 | disposition home health service (06) ==
LOC: 2 SOUTH 00:48
PROVIDERS: Physician Assistant; ADMITTING PHYSICIAN Hospitalist; ATTENDING PHYSICIAN Hospitalist; EMERGENCY PHYSICIAN Emergency Medicine; FAMILY PHYSICIAN Family Medicine
DX: M25.512 Pain in left shoulder (principal); Y92.009 Unspecified place in unspecified non-institutional (private) residence as the place of occurrence of the external cause; M25.511 Pain in right shoulder; R26.2 Difficulty in walking, not elsewhere classified; Z93.6 Other artificial openings of urinary tract status; K21.9 Gastro-esophageal reflux disease without esophagitis; C61 Malignant neoplasm of prostate; G89.3 Neoplasm related pain (acute) (chronic); R22.9 Localized swelling, mass and lump, unspecified; C79.51 Secondary malignant neoplasm of bone; M48.02 Spinal stenosis, cervical region; S09.90XA Unspecified injury of head, initial encounter; W01.0XXA Fall on same level from slipping, tripping and stumbling without subsequent striking against object, initial encounter; Z02.2 Encounter for examination for admission to residential institution; Z85.46 Personal history of malignant neoplasm of prostate; Z85.828 Personal history of other malignant neoplasm of skin; Z86.73 Personal history of transient ischemic attack (TIA), and cerebral infarction without residual deficits; Z90.79 Acquired absence of other genital organ(s)
CPT/HCPCS: 70450; 72125; 73030; 80048; 80053; 81003; 81015; 85025; 85027; 87086; 87502; 96374; 97116; 97163; 97167; 99285; G0378

== ENCOUNTER → 2024-06-01 14:23 | Outpatient (REF) | payer OTHER, SELFPAY ==
[2024-06-01 15:11] LABS: % Basophils 0.2 % (0-2); % Eosinophils 0.2 % (0-6); % Immature Granulocytes 1.2 % (0-0.5); % Lymphocytes 14.4 % (20.5-51.1); % Monocytes 18.8 % (1.7-9.3); % Neutrophils 65.2 % (42.2-75.2); Absolute Immature Granulocytes 0.1 10^3/uL (0-0.05); Absolute Lymphocytes 0.8 10^3/uL (1.2-3.4); Absolute Neutrophils 3.4 10^3/uL (1.4-6.5); Hematocrit 34.8 % (39.0-52.0); Hemoglobin 11.6 g/dL (13.0-18.0); Mean Corp Hgb Conc. 33.3 g/dL (33.0-37.0); Mean Corpuscular Hgb 30.4 pg (27.0-31.0); Mean Corpuscular Volume 91.3 fL (80.0-94.0); Mean Platelet Volume 10.4 fL (7.4-10.4); Nucleated Red Blood Cells % 0 % (-); Platelet Count 196 10^3/uL (130-400); Red Blood Cell Count 3.81 10^6/uL (4.70-6.10); Red Cell Dist. Width 14.3 % (11.5-14.5); White Blood Cell Count 5.2 10^3/uL (4.8-10.8)
[2024-06-01 15:45] LABS: ALT (SGPT) 16 U/L (0-50); AST (SGOT) 21 U/L (17-59); Albumin 3.8 g/dl (3.5-5.0); Alkaline Phosphatase 63 U/L (38-126); Blood Urea Nitrogen 20 mg/dl (9-20); Calcium 8.6 mg/dl (8.4-10.2); Carbon Dioxide 25 mmol/L (22-30); Chloride 100 mmol/L (98-107); Glucose 149 mg/dl (70-99); Potassium 4.2 mmol/L (3.5-5.1); Sodium 135 mmol/L (135-145); Total Bilirubin 0.7 mg/dl (0.2-1.3); Total Protein 6.5 g/dl (6.3-8.2); eGFR > 60.00
[2024-06-01 16:15] LABS: PSA, Total - Diagnostic 2.83 ng/ml (0.0-4.0)
[2024-06-01 16:17] LABS: Testosterone, Total 10.6 ng/dl (72-623)
== END ==
LOC: REG 14:23
PROVIDERS: ATTENDING PHYSICIAN Physician Assistant Medical; FAMILY PHYSICIAN Family Medicine
DX: C61 Malignant neoplasm of prostate (principal)
CPT/HCPCS: 36415; 80053; 84153; 84403; 85025

== ENCOUNTER → 2024-08-05 12:33 | Outpatient (REF) | payer OTHER, SELFPAY ==
[2024-08-05 13:10] LABS: Ionized Calcium 1.12 mMOL/L (1.15-1.33)
[2024-08-05 13:12] LABS: Hematocrit 36.1 % (39.0-52.0); Hemoglobin 12.2 g/dL (13.0-18.0); Mean Corp Hgb Conc. 33.8 g/dL (33.0-37.0); Mean Corpuscular Hgb 28.9 pg (27.0-31.0); Mean Corpuscular Volume 85.5 fL (80.0-94.0); Platelet Count 270 10^3/uL (130-400); Red Blood Cell Count 4.22 10^6/uL (4.70-6.10); Red Cell Dist. Width 14.1 % (11.5-14.5); White Blood Cell Count 7.8 10^3/uL (4.8-10.8)
[2024-08-05 13:31] LABS: Absolute Neutrophils -Man Diff 5.3 10^3/uL (1.4-6.5); Band Neutrophils 7 % (0-3); Lymphocytes 16 % (20-51); Metamyelocytes 2 % (-); Monocytes 12 % (2-9); Myelocytes 2 % (-); Platelets Checked Yes; Segmented Neutrophils 61 % (42-75)
[2024-08-05 13:32] LABS: Normal RBC Morphology Yes; Total Cells Counted 100
[2024-08-05 13:40] LABS: ALT (SGPT) 15 U/L (0-50); AST (SGOT) 24 U/L (17-59); Albumin 4.4 g/dl (3.5-5.0); Alkaline Phosphatase 53 U/L (38-126); Blood Urea Nitrogen 22 mg/dl (9-20); Calcium 8.9 mg/dl (8.4-10.2); Carbon Dioxide 23 mmol/L (22-30); Chloride 101 mmol/L (98-107); Glucose 123 mg/dl (70-99); Magnesium 2.1 mg/dl (1.6-2.3); Potassium 4.3 mmol/L (3.5-5.1); Sodium 137 mmol/L (135-145); Total Bilirubin 0.6 mg/dl (0.2-1.3); Total Protein 7.5 g/dl (6.3-8.2); eGFR > 60.00
[2024-08-05 19:16] LABS: PSA, Total - Diagnostic 6.91 ng/ml (0.0-4.0)
[2024-08-05 19:19] LABS: Testosterone, Total 10.3 ng/dl (72-623)
[2024-08-08 04:50] LABS: H. pylori Breath Test Negative (Negative)
== END ==
LOC: REG 12:33
PROVIDERS: ATTENDING PHYSICIAN Physician Assistant Medical; FAMILY PHYSICIAN Family Medicine; OTHER PHYSICIAN Specialist
DX: R14.2 Eructation (principal); C61 Malignant neoplasm of prostate; E83.42 Hypomagnesemia; E83.51 Hypocalcemia; N17.9 Acute kidney failure, unspecified
CPT/HCPCS: 36415; 80053; 82330; 83013; 83735; 84153; 84403; 85025

== ENCOUNTER 2024-08-30 02:45 | Inpatient (IN) | payer OTHER, SELFPAY ==
[2024-08-30] VITALS (9 sets, daily range): BP systolic 123–157; BP diastolic 69–87; BMI 28.7; BMI 28.2
--- NOTE | 2024-08-30 00:50 | ED.GENMED ---
History of Present Illness
General
Chief Complaint: Fever
Source: patient and ambulance crew
Exam Limitations: none
Time Seen by Provider: 08/30/24 00:34
Nursing documentation reviewed up to this point in time: agreed with
History of Present Illness
History of Present Illness:
Pleasant 89-year-old male presents to the emergency department with fever. He also reports left shoulder pain. Pain began this morning around 6:30 AM. Patient took oxycodone to help alleviate the pain. The pain has been persistent throughout the
day. Patient does have a history of prostate cancer and bone cancer.
Past History
Past History
ED Past Medical History: Cancer (Metastatic prostate CA), HTN and Valvular disease
ED Past Surgical History: Urological and Other
Social History
Tobacco: Non-smoker
Alcohol: None
Drug: None
Personal:
Living: with family
Employment: Retired
Family History
Family History: Diabetes and CAD
Phy Exam
General Physical Exam
General Presentation: mild distress
General age: appears stated age
General Skin: warm and dry
General Habitus: normal
General Mental: alert
General Hydration: appears well hydrated
Cardiovascular Exam
Cardiovascular Exam: regular rate/rhythm
Systolic Murmur: 3/6
Heart Sounds: normal
Pulmonary Exam
Pulmonary Exam: decreased breath sounds
Respirations: mild increase in effort
Breath Sounds: Rhonchi: left lower and right lower
Gastrointestinal Exam
External Findings: other (Urostomy)
Course
Orders/Labs/Results
Orders:
Orders
08/30/24 00:40
CR Chest - 2 Views Urgent
Comment:
Reason For Exam: chest and left arm pain
08/30/24 00:54
Complete Blood Count/With Diff Urgent
Comprehensive Metabolic Panel Urgent
Lactic Acid Q4H
Comment: CANCEL 2nd LACTIC ACID IF 1st LACTIC ACID IS LESS THAN 2
Manual Differential Urgent
NT-proBNP Urgent
PTT Urgent
Prothrombin Time Urgent
Troponin I Urgent
Blood Culture Q30M
MERRILL Source: Blood/Venous
Specimen Description:
Influenza A+B Rapid Molecular Urgent
MERRILL Source: Nasal Swab
Specimen Description:
08/30/24 00:59
Urinalysis Reflex To Culture Urgent
Date Specimen was Collected: 08/30/24
Time Specimen was Collected: 00:58
Urine Microscopic Reflex Cult Urgent
Urine Culture Urgent
MERRILL Source: U
Specimen Description:
Date Specimen was Collected: 08/30/24
Time Specimen was Collected: 00:58
08/30/24 01:15
Blood Culture Q30M
MERRILL Source: Blood/Venous
Specimen Description:
08/30/24 01:18
HYDROmorphone [Dilaudid] 1 mg IV NOW STA
Ondansetron Injectable [Zofran] 4 mg IV NOW STA
08/30/24 01:28
Piperacillin/Tazo 4.5 Gram [Zosyn] 4.5 gram in 100 ml IV NOW
08/30/24 01:33
COVID-19 Antigen Urgent
Source: Nasal Swab
08/30/24 04:45
Lactic Acid Q4H
Comment: CANCEL 2nd LACTIC ACID IF 1st LACTIC ACID IS LESS THAN 2
Abnormal Lab Results
08/30/24 08/30/24
00:54 00:59
RBC 4.63 L 10^6/uL
(4.70-6.10)
APTT 37.8 H Sec
(23.4-35.0)
BUN 21 H mg/dl
(9-20)
Glucose 130 H mg/dl
(70-99)
Total Protein 8.3 H g/dl
(6.3-8.2)
Ur Occult Blood Reflex 1+ A
(Negative)
Urine Nitrite (Reflex) Positive A
(Negative)
Leukocyte Esterase Rfl 1+ A
(Negative)
Urine RBC 7-10 A /HPF
(0-2)
Urine Bacteria (Reflex) Many A
(Negative)
Urine Albumin (Reflex) 1+ A
(Neg - Trace)
08/30/24 00:54
08/30/24 00:54
Vital Signs
Initial and Last Documented VS:
Initial Vital Signs
Temp Pulse Resp BP Pulse Ox
100.9 F H 88 15 157/80 95
08/30/24 00:37 08/30/24 00:37 08/30/24 00:37 08/30/24 00:37 08/30/24 00:37
Last Documented Vital Signs
Temp Pulse Resp BP Pulse Ox
100.9 F H 87 14 155/87 95
08/30/24 00:37 08/30/24 01:00 08/30/24 01:00 08/30/24 01:00 08/30/24 01:00
MDM/Problems Addressed
Differential Diagnosis Includes:
Metastatic bone disease, pneumonia, UTI with urostomy.
MDM/Problems Addressed:
89-year-old male treated at [facility] for prostate cancer and metastatic bone cancer presents with fever and left shoulder pain. He has taken pain medications that is prescribed for his chronic pain. He states that this left shoulder pain is new
pain. It awakened him from sleep.
Chronic conditions affecting care:
Prostate cancer, metastatic bone cancer
Chronic conditions affecting care: HTN, Cardiomyopathy and Cancer
*Radiology
Radiology exam reviewed: preliminary read by ED provider (left shoulder humeral head lucency, no pna)
*Pulse Oximetry
Patient hypoxic: no
*Critical Care Note
Total Time (30-74mins, 75-104mins- exclusive of procedures): Not Applicable
Patient Management
Social determinants of health affecting care: Strong social support
Discussion with other providers: Hospitalist
ED Attending Note
-
Portions of this chart may have been created with voice recognition software.� Occasional wrong word or��sound alike� substitutions may have occurred due to the inherent limitations of voice recognition software.
Discharge Plan
Departure
Patient Disposition: Admit
Date of Disposition: 08/30/24
Time of Disposition: 01:35
Admit to: Telemetry
Presentation/result/management discussed w/ accepting MD/DO: Hospitalist
Discharge Problem:
Prostate cancer, Metastasis to bone, Fever
Prescriptions:
No Action
Centrum Silver 1 EACH tablet
1 ea PO QPM
buprenorphine 10 mcg/hour patch weekly
15 mcg transdermal TH
Patient Comments:
11/07/2022: last filled 10/17/22, 4 patches for 28 days from [facility]
pantoprazole [Protonix] 40 mg Tablet,Delayed Release (Dr/Ec)
40 mg PO DAILY
lidocaine [Lidocaine Pain Relief] 4 % Adhesive Patch,Medicated
1 patch TOPICAL DAILYPRN PRN (Reason: mild pain)
Rx Instructions:
5%
hydrocodone-acetaminophen 10-325 mg Tablet
1 tab PO Q6HPRN PRN (Reason: severe pain)
duloxetine [Cymbalta] 30 mg Capsule,Delayed Release(Dr/Ec)
30 mg PO DAILY Qty: 0
famotidine 20 mg Tablet
20 mg PO .3PM AND 10 PM
Rx Instructions:
Patient states he takes it at 3pm and 10pm
Xtandi 40 mg Tablet
120 mg PO DAILY@0630
Rx Instructions:
Take 3 tablets (120mg total) by mouth daily.
loperamide 2 mg Capsule
2 mg PO [id number] PRN (Reason: diarrhea) Qty: 20 0RF
acetaminophen [Tylenol Extra Strength] 500 mg Tablet
1,000 mg PO Q8H Qty: 30 0RF
polyethylene glycol 3350 [Miralax] 17 gram Powder In Packet
17 g PO DAILY PRN (Reason: constipation)
sucralfate 100 mg/mL Suspension
10 ml PO .2HR BEFORE LUNCH AN
pregabalin 50 mg Capsule
50 mg PO TID
Calcium 600mg + Vitamin D 800u
1 tab PO BID
ondansetron
8 mg PO Q8H PRN (Reason: nausea)
docusate sodium 100 mg capsule
100 mg PO BID PRN (Reason: constipation)
dicyclomine 10 mg capsule
10 mg PO QID PRN (Reason: abdominal fullness, cramping)
Referrals:
Jamila Ruiz MD [Family Provider] -
Interventions
Interventions:
*Risk Screen - Suicide Last Done: 08/30/24 00:37
*General Assessment Last Done: 08/30/24 00:37
*Neglect/Abuse Screening Last Done: 08/30/24 00:37
*ED COVID-19 Vaccine History Last Done: 08/30/24 00:37
ED- Neurological Assessment Last Done: 08/30/24 00:45
ED-Skin Assessment Last Done: 08/30/24 00:45
Discharge Date and Time
Print Language: BELARUSIAN
[2024-08-30 01:13] LABS: Urine Albumin 1+ (Neg - Trace); Urine Bilirubin Negative (Negative); Urine Character Slightly Cloudy (Clear); Urine Glucose Negative (Negative); Urine Ketone Negative (Negative); Urine Leukocyte 1+ (Negative); Urine Nitrite Positive (Negative); Urine Occult Blood 1+ (Negative); Urine Urobilinogen Negative (Neg - 1+)
[2024-08-30 01:16] LABS: Hematocrit 39.3 % (39.0-52.0); Mean Corp Hgb Conc. 33.1 g/dL (33.0-37.0); Mean Corpuscular Hgb 28.1 pg (27.0-31.0); Mean Corpuscular Volume 84.9 fL (80.0-94.0); Mean Platelet Volume 9.8 fL (7.4-10.4); Platelet Count 338 10^3/uL (130-400); Red Blood Cell Count 4.63 10^6/uL (4.70-6.10); Red Cell Dist. Width 14.3 % (11.5-14.5); White Blood Cell Count 10.3 10^3/uL (4.8-10.8)
[2024-08-30 01:18] LABS: Urine Color Yellow
[2024-08-30 01:24] LABS: INR 1.05; PT 14.1 Sec (11.4-14.6)
[2024-08-30 01:25] LABS: APTT 37.8 Sec (23.4-35.0); Lactic Acid 1.8 mmol/L (0.7-2.0)
[2024-08-30 01:26] LABS: Urine Amorphous Seen; Urine Bacteria Many (Negative); Urine Mucus Many; Urine Squamous Cell >30 /LPF (Few)
[2024-08-30 01:27] LABS: ALT (SGPT) 15 U/L (0-50); AST (SGOT) 24 U/L (17-59); Albumin 4.6 g/dl (3.5-5.0); Alkaline Phosphatase 70 U/L (38-126); Blood Urea Nitrogen 21 mg/dl (9-20); Calcium 9.3 mg/dl (8.4-10.2); Carbon Dioxide 26 mmol/L (22-30); Chloride 100 mmol/L (98-107); Estimated Creatinine Clearance 53 ml/min; Glucose 130 mg/dl (70-99); Potassium 4.6 mmol/L (3.5-5.1); Sodium 137 mmol/L (135-145); Total Bilirubin 0.6 mg/dl (0.2-1.3); Total Protein 8.3 g/dl (6.3-8.2); eGFR > 60.00
[2024-08-30 01:27] LABS: Urine Triple Phosphate Crystal Seen
[2024-08-30 01:38] LABS: NT-proBNP 570 pg/ml; Troponin I < 0.012 ng/ml
--- NOTE | 2024-08-30 01:39 | HPS.HSE ---
Family Physician
-
Family Physician: Jamila Ruiz MD
Chief Complaint
-
Fever
History of Present Illness
This is an 89-year-old with past medical history significant for metastatic prostate cancer s/p XRT currently on Xtandi, chronic pain, radiation cystitis s/p cystoprostatectomy, status post R urostomy tube presented to the emergency department with
fever.
He started having left shoulder pain this a.m. at around 630. The pain has been persistent throughout the day. He did have to take additional doses of his oxycodone for pain relief. Patient has prostate cancer with extensive bony metastases to
mediastinum ribs and is pending a repeat PET scan in about 1 to 2 weeks. He remains on Xtandi. He had a prior radiation therapy via implants which was unsuccessful and patient had a complication related to misplaced seeds. Has had radiation
cystitis requiring partial cystectomy and now has a diverting right lower quadrant urostomy. He has had multiple bouts of infections stemming from a urinary source and has had resistant bacteria in the urine past. Family notes he has his typical
yellow urine with some cloudiness and he stated that he has seen was in the past. He denies abdominal pain. He denies any pain around the urostomy site. He has urethral/penile spasms after his procedure which has been progressively worse over the
last few years.
Reports of left shoulder pain that initially started in the back of the left shoulder just behind the clavicle and is now currently the lateral side of the proximal humerus. Pain is exacerbated by moving the arm. Denies any radiation. He denies
any chest pain.
He denies any other symptoms such as inspiratory chest pain, cough, shortness of breath, any nausea or vomiting. Reports intermittent constipation and diarrhea due to pain management and laxative use. He denies any new rash. He does have a
perennial rash that is being treated with fungal cream and that is improving. He is alert and orient x 3 and in no acute distress. He has no known sick contacts.
In the emergency department he was febrile to 100.9, blood pressure was 155/87 with a pulse of 87 and he was satting 95% on room air. His chest x-ray shows no acute infiltrates but revealed a left shoulder humeral head lucency. UA from urostomy
tube was positive for nitrites and leukocyte esterase, and CBC was unremarked. Electrolytes BUN/creatinine were all normal.
Medical History
Past Medical History
Past Medical History: Reports Other
Additional Past Medical History:
Hypertension
Hyperlipidemia
Osteoarthritis
GERD
Heart murmur
Metastatic Prostate cancer
Chronic pain due to neoplasm
Low back pain
Pneumonia
Skin cancer
Lyme disease
Past Surgical History: Reports Other
Additional Past Surgical History:
Partial cystectomy with a loop diversion
Lump on the left testicle removed
Left ear excision of skin cancer
Hernia repair
Aba
Bilateral cataract excision
Social History
Tobacco: Non-smoker
Alcohol: None
Drug: None
Personal:
Living: With Family
Family History
Family History: Not pertinent
Allergies / Home Medications
Allergies reflects when Allergies were last updated in [employer]
Home Medications with original date entered in [employer]
Allergy/Medication List:
Allergies
Allergy/AdvReac Type Severity Reaction Status Date / Time
gadobutrol [From Gadavist] Allergy Hives Verified 05/29/24 17:30
surgical glue Allergy Itching Uncoded 05/29/24 17:30
Home Medications
pzkziird-cfu-twpkn acid 0.4 mg-lycopene 300 mcg-lutein 250 mcg tablet (Centrum Silver) 1 ea PO QPM Supplement 07/16/18
buprenorphine 10 mcg/hour weekly transdermal patch 15 mcg transdermal TH Pain 06/19/22
calcium carbonate (Calcium 600) 600 mg PO BID Supplement 06/19/22
pantoprazole 40 mg tablet,delayed release (Protonix) 40 mg PO DAILY Gastrointestinal Issue 11/07/22
hydrocodone 10 mg-acetaminophen 325 mg tablet 1 tab PO Q6H PRN pain 04/29/24
lidocaine 4 % topical patch (Lidocaine Pain Relief) 1 patch topical BID PRN pain 04/29/24
duloxetine 30 mg PO DAILY Mental Health/Anxiety 04/30/24
enzalutamide 40 mg tablet (Xtandi) 120 mg PO DAILY Antineoplastic Agent, 04/30/24
famotidine 20 mg tablet 20 mg PO BID Gastrointestinal Issue 04/30/24
dicyclomine 10 mg capsule 10 mg PO QIDPRN PRN Abdominal Fullness/Pain/Abdominal Spasms #20 caps 05/06/24
loperamide 2 mg capsule 2 mg PO [id number] PRN diarrhea #20 caps 05/06/24
Review of Systems
-
History Source: Patient
A 12 point ROS was completed and negative except as noted: Yes
Constitutional: Reports Fever and Fatigue
Respiratory: Denies Cough or Trouble Breathing
Cardiac: Denies Chest Pain or Palpitations
Abdomen/GI: Reports Other (Heartburn / indigestion / frequent belching.); Denies Abdominal Pain, Nausea, Vomiting or Diarrhea
: Reports Other (RLQ urostomy functioning well.); Denies Dysuria
Musculoskeletal: Reports Joint Pain (L shoulder specifically.); Denies Edema
Neurological: Denies Dizzy or Headache
Psych: Denies Depression or Anxiety
Physical Exam
Vital Signs
Vital Signs
Temp Pulse Resp BP Pulse Ox
100.9 F H 87 14 155/87 95
08/30/24 00:37 08/30/24 01:00 08/30/24 01:00 08/30/24 01:00 08/30/24 01:00
Physical Exam
General: Other (88y M in mild distress due to pain.)
HEENT: Moist mucous membranes and PERRLA
Respiratory: Clear; No Wheezes, Rales or Rhonchi
Cardiac: S1/S2 and Regular Rhythm
GI: Soft, Non Distended and Normal Bowel Sounds
Genito-urinary: Other (RLQ urostomy in place with cloudy yellow urine in device. No bleeding / discharge. Stoma pink / healthy appearing.)
Neuro: AO x 3 and Nonfocal/grossly intact
Hematologic/Lymphatic: No Lymphadenopathy
Psych: Calm
Laboratory Results
-
08/30/24 00:54
08/30/24 00:54
Laboratory Results
PT 14.1 Sec (11.4-14.6) 08/30/24 00:54
INR 1.05 08/30/24 00:54
APTT 37.8 Sec (23.4-35.0) H 08/30/24 00:54
Lactic Acid 1.8 mmol/L (0.7-2.0) 08/30/24 00:54
Total Bilirubin 0.6 mg/dl (0.2-1.3) 08/30/24 00:54
AST 24 U/L (17-59) 08/30/24 00:54
ALT 15 U/L (0-50) 08/30/24 00:54
Alkaline Phosphatase 70 U/L (38-126) 08/30/24 00:54
Troponin I < 0.012 ng/ml 08/30/24 00:54
Data Reviewed
-
Diagnostic Radiology: Image Personally Visualized and interpreted
Lab Data: Labs Reviewed by me
Old Records: Reviewed
Impression/Plan
-
IMPRESSION:
89-year-old with past medical history of metastatic prostate cancer widely metastatic to bone (sternum, manubrium etc) presents with fever to 101.8 at home after waking up with left shoulder pain. He has a radiolucency on the humeral head of the
left shoulder. No pneumonia on xray. U/A with nitrites but equivocal given urostomy source. Given h/o UTIs, this is likely the etiology of fever but need to scan his abdomen to ensure no acute intraabdominal process.
PLAN:
Fever - Source uncertain but no evidence of respiratory, integumentary, musculoskeletal or GI source. Likely urinary. COVID/Flu negative.
- admit to med/surg for now
- blood and urine cultures sent
- h/o resistant morganella, will continue with zosyn pending culture findings
- mrsa swab
- CT a/p with iv contrast
Shoulder pain - Suspect related to growing metastatic lesion. Radiolucency noted on informal read of xray. Will await final read. Bonescan from 2023 shows wide bone mets with activity in the sternum, the right fifth lateral rib, the midthoracic
spine, the left pelvic bones, the lower lumbar spine. Family reports no new lesions on outpatient scan most recently but enlarging lesions that were there before. He will be getting a repeat PET scan in less than 2 weeks and possibly a bone scan.
Will forward new information to oncologist if final read suggests new lesion. No obvious fracture or dislocation.
- lidocaine patch
- continue pain control for now w/ prn dilaudid
- continue oxycodone prn and buprenoprhine patch
- lyrica and duloxetine
Metastatic prostate Ca
- continue Xtanid
- follow up with outpatient oncology
DVT PPX - lovenox sq
Code status - DNR
[2024-08-30] MEDS: NSS 1000 IV (01:58)
[2024-08-30] MEDS: DILAUDID 1 MG IV (01:59)
[2024-08-30] MEDS: ZOFRAN 4 MG IV (01:59)
[2024-08-30 02:00] LABS: COVID-19 Antigen Negative (Negative)
[2024-08-30] MEDS: ZOSYN 100 IV (02:00)
[2024-08-30 02:01] LABS: Absolute Neutrophils -Man Diff 6.9 10^3/uL (1.4-6.5); Band Neutrophils 2 % (0-3); Lymphocytes 15 % (20-51); Monocytes 18 % (2-9); Normal RBC Morphology Yes; Platelets Checked Yes; Segmented Neutrophils 65 % (42-75)
[2024-08-30 02:02] LABS: Total Cells Counted 100
[2024-08-30] MEDS: DILAUDID 0.5 MG IV (05:15)
[2024-08-30] MEDS: LR 1000 IV (05:16)
[2024-08-30] MEDS: NON-FORMULARY ITEM 40 MG PO (06:28)
[2024-08-30 07:23] LABS: Hematocrit 34.1 % (39.0-52.0); Hemoglobin 11.2 g/dL (13.0-18.0); Mean Corp Hgb Conc. 32.8 g/dL (33.0-37.0); Mean Corpuscular Hgb 28.1 pg (27.0-31.0); Mean Corpuscular Volume 85.5 fL (80.0-94.0); Mean Platelet Volume 10.4 fL (7.4-10.4); Platelet Count 303 10^3/uL (130-400); Red Blood Cell Count 3.99 10^6/uL (4.70-6.10); Red Cell Dist. Width 14.2 % (11.5-14.5); White Blood Cell Count 9.7 10^3/uL (4.8-10.8)
[2024-08-30 08:08] LABS: Blood Urea Nitrogen 17 mg/dl (9-20); Calcium 8.3 mg/dl (8.4-10.2); Carbon Dioxide 25 mmol/L (22-30); Chloride 100 mmol/L (98-107); Estimated Creatinine Clearance 68 ml/min; Glucose 113 mg/dl (70-99); Potassium 4.3 mmol/L (3.5-5.1); Sodium 136 mmol/L (135-145); eGFR > 60.00
[2024-08-30] MEDS: LIDOCAINE 4% PATCH 1 PATCH TOPICAL (09:27)
[2024-08-30] MEDS: LYRICA 50 MG PO ×3 (09:28→21:22)
[2024-08-30] MEDS: CYMBALTA DELAYED RELEASE 30 MG PO (09:28)
[2024-08-30] MEDS: PROTONIX 40 MG PO (09:28)
[2024-08-30] MEDS: ZOSYN 50 IV ×3 (09:29→20:06)
[2024-08-30] MEDS: MIRALAX 17 GRAMS PO (09:49)
[2024-08-30] MEDS: ROXICODONE 5 MG PO ×2 (09:49→15:12)
[2024-08-30] MEDS: COLACE 100 MG PO (09:49)
[2024-08-30] MEDS: CARAFATE SUSPENSION 1 GM PO ×2 (09:50→15:12)
--- NOTE | 2024-08-30 11:26 | W.PN.HOSP.TC ---
Today's Communication/Plan
-
Empiric antibiotics pending ID workup.
MRI of the left shoulder.
Adjust analgesic regimen
PT evaluation
Assessment / Plan
Assessment / Plan
Impression:
89-year-old with past medical history of metastatic prostate cancer widely metastatic to bone (sternum, manubrium etc) presents with fever to 101.8 at home after waking up with left shoulder pain. He has a radiolucency on the humeral head of the
left shoulder. No pneumonia on xray. U/A with nitrites but equivocal given urostomy source.
Fever.
Persistent and worsening left shoulder pain
Conditions prior to admission:
Metastatic prostate carcinoma.
� Status post XRT
� Status post partial bladder resection with urostomy.
History of UTI
Malignant pain requiring opiates.
Essential hypertension
Dyslipidemia
GERD
Plan:
Fever single episode since admission.
Does not appear to be toxic.
No urinary complaints per
Influenza/COVID-negative
Chest x-ray with no acute abnormalities.
Reasonable concern UTI/complicated UTI in the patient with urostomy.
Urinalysis from urostomy abnormal as expected
CT scan of the abdomen and pelvis with no acute abnormalities including urinary tract.
Blood cultures pending
Urine cultures pending
Empiric Zosyn initiated on admission.
COVID/influenza negative
Chest x-ray with no focal infiltrates
Persistent and worsening left shoulder pain in the patient with metastatic to the bone prostate carcinoma.
No abnormalities on recent imaging including shoulder x-ray and chest x-ray.
Exam with persistent pain at rest and minimal abduction secondary to pain.
Given fever as well as known metastatic disease we will proceed with additional imaging/MRI.
Metastatic prostate carcinoma
On Xtandi
Malignant pain.
Continue preadmission regimen including:
� Buprenorphine, Lyrica, oxycodone. Continue IV hydromorphone and adjust accordingly
CODE STATUS DNR.
Anticipated Discharge: 24 - 48 hours
Subjective/Interval History
-
Date of Service: August 30, 2024
Objective Data
-
Labs:
Laboratory Results
08/30/24 08/30/24
00:54 05:55
WBC 10.3 9.7
Hgb 13.0 11.2 L
Hct 39.3 34.1 L
Plt Count 338 303
PT 14.1
INR 1.05
APTT 37.8 H
Sodium 137 136
Potassium 4.6 4.3
Chloride 100 100
Carbon Dioxide 26 25
BUN 21 H 17
Creatinine 0.9 0.7
Glucose 130 H 113 H
Calcium 9.3 8.3 L
Total Bilirubin 0.6
AST 24
ALT 15
Alkaline Phosphatase 70
Vital Signs:
Vital Signs
Temp Pulse Resp BP Pulse Ox
98.8 F 83 18 130/70 93
08/30/24 07:15 08/30/24 07:15 08/30/24 07:15 08/30/24 07:15 08/30/24 07:15
I&O
08/29/24 08/30/24 08/31/24
06:59 06:59 06:59
Intake Total 120 / 120
Output Total 1200 / 1200
Balance -1080 / -1080
Physical Exam
-
General: Well Developed and No Apparent Distress
HEENT: Normocephalic, Atraumatic and Moist Mucous Membranes
Respiratory: Clear to Auscultation
Cardiac: Regular Rhythm and S1/S2; Negative Murmur, Rub or Gallop
GI: Soft, Nontender, Nondistended, Normal Bowel Sounds and Ostomy; Negative Organomegaly
Rectal: Deferred by Provider
Musculoskeletal: No Clubbing, No Cyanosis and No Edema
Skin: Negative Rash
Neuro: Awake, Alert, Oriented and Nonfocal/Grossly Intact
--- NOTE | 2024-08-30 14:30 | CM ---
CM following re: discharge planning.
Reviewed pt's chart, met with pt. Pt's spouse and daughter at bedside.
Pt is an 89 year old male, admitted with primary dx of Metastatic prostate carcinoma.
Pt reports he lives with spouse 1SH, 13 steps to enter, has 4 supportive children. Pt reports he ambulates with a Rollator, has a cane.
PT and OT evaluations noted - SNF vs home PT recommended. CM discussed it with pt and his family. Pt's spouse and daughter stated they will discuss with the rest of the family to decide. Both pt and his family have a list of SNFs and a list of [facility]
vendors.
PCP: Jamila Ruiz
Pharmacy: [facility]
D/C plan: both pt and his family deciding SNF vs VN
CM will follow with discharge plan updates as hospitalization progresses
[2024-08-30] MEDS: PEPCID 20 MG PO ×2 (15:14→21:22)
[2024-08-30] MEDS: LOVENOX 40 MG SC (19:27)
[2024-08-31] MEDS: ZOSYN 50 IV ×4 (01:16→20:00)
[2024-08-31] MEDS: NON-FORMULARY ITEM 120 MG PO (05:36)
[2024-08-31] MEDS: LIDOCAINE 4% PATCH 1 PATCH TOPICAL (07:33)
[2024-08-31] MEDS: CYMBALTA DELAYED RELEASE 30 MG PO (07:34)
[2024-08-31] MEDS: LYRICA 50 MG PO ×3 (07:34→22:13)
[2024-08-31] MEDS: PROTONIX 40 MG PO (07:34)
[2024-08-31 07:41] LABS: Hemoglobin 10.6 g/dL (13.0-18.0); Mean Corp Hgb Conc. 34.2 g/dL (33.0-37.0); Mean Corpuscular Hgb 28.5 pg (27.0-31.0); Mean Corpuscular Volume 83.3 fL (80.0-94.0); Mean Platelet Volume 10.3 fL (7.4-10.4); Platelet Count 275 10^3/uL (130-400); Red Blood Cell Count 3.72 10^6/uL (4.70-6.10); Red Cell Dist. Width 14.4 % (11.5-14.5); White Blood Cell Count 8.9 10^3/uL (4.8-10.8)
[2024-08-31 07:55] VITALS: BP 137/79
[2024-08-31 08:18] LABS: Blood Urea Nitrogen 19 mg/dl (9-20); Calcium 8.2 mg/dl (8.4-10.2); Carbon Dioxide 27 mmol/L (22-30); Chloride 101 mmol/L (98-107); Estimated Creatinine Clearance 60 ml/min; Glucose 119 mg/dl (70-99); Potassium 4.4 mmol/L (3.5-5.1); Sodium 135 mmol/L (135-145); eGFR > 60.00
[2024-08-31 08:59] LABS: Absolute Neutrophils -Man Diff 6.4 10^3/uL (1.4-6.5); Band Neutrophils 0 % (0-3); Lymphocytes 14 % (20-51); Monocytes 13 % (2-9); Normal RBC Morphology Yes; Platelets Checked Yes; Segmented Neutrophils 73 % (42-75); Total Cells Counted 100
[2024-08-31] MEDS: CARAFATE SUSPENSION 1 GM PO (09:30)
[2024-08-31 09:57] VITALS: BP 112/70; PULSE 86; O2SAT 95
[2024-08-31 15:25] VITALS: BP 149/75
[2024-08-31] MEDS: CARAFATE SUSPENSION PO (16:12)
[2024-08-31] MEDS: PEPCID 20 MG PO ×2 (16:12→22:13)
--- NOTE | 2024-08-31 16:18 | W.PN.HOSP.TC ---
Today's Communication/Plan
-
Antibiotics
Pending cultures.�
MRI of the left shoulder.
Assessment / Plan
Assessment / Plan
NAD
Scleral Anicteric
MMM
No JVD
CTABL
RRR, S1/S2
Soft, NT, ND, BS+
Left shoulder pain improved with lidocaine patch
Warm, Dry
AAOx3
Calm
Impression:
89-year-old with past medical history of metastatic prostate cancer widely metastatic to bone (sternum, manubrium etc) presents with fever to 101.8 at home after waking up with left shoulder pain. He has a radiolucency on the humeral head of the
left shoulder. No pneumonia on xray. U/A with nitrites but equivocal given urostomy source.
Fever.
Persistent and worsening left shoulder pain
Conditions prior to admission:
Metastatic prostate carcinoma.
� Status post XRT
� Status post partial bladder resection with urostomy.
History of UTI
Malignant pain requiring opiates.
Essential hypertension
Dyslipidemia
GERD
Plan:
Fever single episode since admission.
Does not appear to be toxic.
No urinary complaints per
Influenza/COVID-negative
Chest x-ray with no acute abnormalities.
Reasonable concern UTI/complicated UTI in the patient with urostomy.
Urinalysis from urostomy abnormal as expected
CT scan of the abdomen and pelvis with no acute abnormalities including urinary tract.
Blood cultures pending
Urine cultures pending
Empiric Zosyn initiated on admission.
COVID/influenza negative
Chest x-ray with no focal infiltrates
Persistent and worsening left shoulder pain in the patient with metastatic to the bone prostate carcinoma.
No abnormalities on recent imaging including shoulder x-ray and chest x-ray.
Exam with persistent pain at rest and minimal abduction secondary to pain.
Given fever as well as known metastatic disease we will proceed with additional imaging/MRI.
Metastatic prostate carcinoma
On Xtandi
Malignant pain.
Continue preadmission regimen including:
� Buprenorphine, Lyrica, oxycodone. Continue IV hydromorphone and adjust accordingly
CODE STATUS DNR.
Anticipated Discharge: 24 - 48 hours
Subjective/Interval History
-
Date of Service: August 31, 2024
Seen and examined. No new complaints. No acute overnight events.
Objective Data
-
Labs:
Laboratory Results
08/31/24
05:37
WBC 8.9
Hgb 10.6 L
Hct 31.0 L
Plt Count 275
Sodium 135
Potassium 4.4
Chloride 101
Carbon Dioxide 27
BUN 19
Creatinine 0.8
Glucose 119 H
Calcium 8.2 L
Vital Signs:
Vital Signs
Temp Pulse Resp BP Pulse Ox
98.0 F 75 16 149/75 96
08/31/24 15:25 08/31/24 15:25 08/31/24 15:25 08/31/24 15:25 08/31/24 15:25
I&O
08/30/24 08/31/24 09/01/24
06:59 06:59 06:59
Intake Total 120 / 120 1420 / 1420 720 / 720
Output Total 1200 / 1200 1575 / 1575 650 / 650
Balance -1080 / -1080 -155 / -155 70 / 70
[2024-08-31] MEDS: LOVENOX 40 MG SC (17:13)
--- NOTE | 2024-08-31 17:45 | DOWNTIME ---
There was a [employer] Chief Downtime on 08/31/2024 from 1230 to 08/31/2024 at 1550. Downtime documentation of patient's care, including medication administrations, has been reconciled in the electronic record per guidelines. Refer to the
patient's paper chart under the miscellaneous tab to see printed paper medication records and downtime forms.
--- NOTE | 2024-08-31 20:30 | PTCARENOTE ---
Resumed care of pt sitting up in bed watching tv AAOx3, [place]. Slightly forgetful at times. Pt able to ambulate to bathroom with assist with Walker. Pt had inc episode of loose brown stool in pants. Latoya care provided. Pt with Rt urostomy tube
draining cloudy yellow urine. Pt assisted back to bed and positioned per comfort. Pt reports pain at tolerable level at this time. No issues to report. Vital signs stable. WIll continue to monitor.
[2024-08-31 23:35] VITALS: BP 114/59
[2024-09-01] MEDS: ZOSYN 50 IV ×2 (02:37→08:28)
--- NOTE | 2024-09-01 03:42 | PTCARENOTE ---
Pt inc of large loose bm. Complete bed bath provided. Barrier ointment applied. No other changes in assessment noted at this time. Pt positioned per comfort. Will continue to monitor.
[2024-09-01] MEDS: NON-FORMULARY ITEM 120 MG PO (06:21)
[2024-09-01 07:15] VITALS: BP 137/78
[2024-09-01] MEDS: LIDOCAINE 4% PATCH 1 PATCH TOPICAL (08:28)
[2024-09-01] MEDS: PROTONIX 40 MG PO (08:28)
[2024-09-01] MEDS: CYMBALTA DELAYED RELEASE 30 MG PO (08:28)
[2024-09-01] MEDS: LYRICA 50 MG PO (08:28)
--- NOTE | 2024-09-01 12:12 | W.DS.TRANS ---
DC Summary - [employer]
-
Discharge Instructions:
Discharge Diagnosis/Procedures Fever with unrevealing work up.
Metastatic prostate carcinoma.
� Status post XRT
� Status post partial bladder resection with
urostomy.
History of UTI
Malignant pain requiring opiates.
Essential hypertension
Dyslipidemia
GERD
Diet Regular
Instructions:
Stand-Alone Forms:
Changes to Home Medications: No
Discharge Medications:
DC Medications w/original date entered in [facility]
[id number] acid 0.4 mg-lycopene 300 mcg-lutein 250 mcg tablet (Centrum Silver) 1 ea PO QPM Supplement 07/16/18
buprenorphine 10 mcg/hour weekly transdermal patch 15 mcg transdermal TH Pain 06/19/22
pantoprazole 40 mg tablet,delayed release (Protonix) 40 mg PO DAILY Gastrointestinal Issue 11/07/22
hydrocodone 10 mg-acetaminophen 325 mg tablet 1 tab PO Q6HPRN PRN severe pain 04/29/24
lidocaine 4 % topical patch (Lidocaine Pain Relief) 1 patch topical DAILYPRN PRN mild pain 04/29/24
duloxetine 30 mg capsule,delayed release (Cymbalta) 30 mg PO DAILY Mental Health/Anxiety ##0 04/30/24
enzalutamide 40 mg tablet (Xtandi) 120 mg PO DAILY@0630 Antineoplastic Agent, 04/30/24
famotidine 20 mg tablet 20 mg PO .3PM AND 10 PM Gastrointestinal Issue 04/30/24
loperamide 2 mg capsule 2 mg PO [id number] PRN diarrhea #20 caps 05/06/24
acetaminophen 500 mg tablet (Tylenol Extra Strength) 1,000 mg (2 x 500 mg) PO Q8H #30 tabs 06/01/24
Calcium 600mg + Vitamin D 800u 1 tab PO BID Supplement 08/30/24
dicyclomine 10 mg capsule 10 mg PO QID PRN abdominal fullness, cramping 08/30/24
docusate sodium 100 mg capsule 100 mg PO BID PRN constipation 08/30/24
ondansetron 8 mg PO Q8H PRN nausea 08/30/24
polyethylene glycol 3350 17 gram oral powder packet (Miralax) 17 g PO DAILY PRN constipation 08/30/24
pregabalin 50 mg capsule 50 mg PO TID Neurological Condition 08/30/24
sucralfate 100 mg/mL oral suspension 10 ml PO .2HR BEFORE LUNCH AN Gastrointestinal Issue 08/30/24
Home Medication Changes
Pending Results: No
--- NOTE | 2024-09-01 12:28 | CM ---
CM following re: discharge planning.
Reviewed pt's chart, met with pt and pt's spouse at bedside.
Discharge order noted. Both pt and his spouse are aware, expressed their agreement. IMM reviewed, placed on chart, pt has a copy. Pt's spouse stated she will transport her home.
PT and OT evaluations noted - home PT/OT recommended. Both pt and his spouse are aware and they requested [facility]. Pt stated he had [facility] in the past and wants them again. A referral to [facility] made.
Please fax discharge instructions to [facility] at [phone].
D/C plan: home with [facility] and family support. Spouse to transport.
[2024-09-01] MEDS: CARAFATE SUSPENSION PO (12:35)
[2024-09-01 12:44] VITALS: BP 121/68
--- NOTE | 2024-09-01 12:57 | PTCARENOTE ---
Patient OOb to chair with assist x1 and walker. Patient c/o minimal left shoulder tenderness. Patient states, 'The pain patch really helps (Lidocaine).' Patient's urostomy leaking, patient's spouse has supplies with her and changed appliance. Spouse
brought in patients Buprenorphine patch due to be changed today at 1700. Patch taken to pharmacy to be identified and bar coded. Patient is now for discharge today-Buprenorphine patch returned to spouse. Spouse signed pharmacy sheet as well as RN
and sheet was returned to pharmacy.
--- NOTE | 2024-09-01 13:31 | VNURNOTE ---
Home Health Liaison met with patient and spouse at bedside to discuss [facility] nurse/therapy, visits, schedule and homebound status. Both are agreeable and understand that visits at home will be 2-3 x per week to assess and teach medical management.
Patient has had [facility] in the recent past. Patient is aware that [facility] will contact them for start of care in 1-2 days after discharge from .
[facility] referral completed in [facility].
== END 2024-09-01 14:51 | disposition home health service (06) | DRG 544 ==
LOC: 2 NORTH 02:45
PROVIDERS: ADMITTING PHYSICIAN Internal Medicine; ATTENDING PHYSICIAN Internal Medicine; EMERGENCY PHYSICIAN Student in an Organized Health Care Education/Training Program; FAMILY PHYSICIAN Family Medicine
DX: C79.51 Secondary malignant neoplasm of bone (principal); Z92.3 Personal history of irradiation; C61 Malignant neoplasm of prostate; Z87.440 Personal history of urinary (tract) infections; G89.3 Neoplasm related pain (acute) (chronic); E78.5 Hyperlipidemia, unspecified; I10 Essential (primary) hypertension; K21.9 Gastro-esophageal reflux disease without esophagitis; Z11.52 Encounter for screening for COVID-19; K59.00 Constipation, unspecified; Z66 Do not resuscitate; Z96.0 Presence of urogenital implants
CPT/HCPCS: 71046; 73221; 74177; 80048; 80053; 81003; 81015; 83605; 83880; 84484; 85025; 85027; 85610; 85730; 87040; 87070; 87086; 87502; 87811; 96361; 96365; 96375; 97163; 97530; 99284; Q9967